=== PATIENT | male | born 1945 | race Caucasian/White ===

== ENCOUNTER 2016-05-25 22:39 | Inpatient (IN) ==
[2016-05-25] MEDS ORDERED: Pantoprazole 80 MG in 0.9 % Sodium Chloride 50 ML IVPB ONE (22:42)
--- NOTE | 2016-05-25 22:44 | Emergency Department Note ---
Disposition Clinical Impression: Hematochezia, Anemia, Hypokalemia Disposition: Admitted As Inpatient Condition: Fair General Adult HPI - General Chief complaint: ED GI Bleed Stated complaint: GI BLEED Time Seen by Provider: 05/25/16 22:41 - Related Data Home Medications Medication Instructions Recorded Confirmed Aspirin [Adult Low Dose Aspirin EC] 81 mg PO DAILY 04/18/15 04/18/15 Calcium Carbonate/Vitamin D3 2 tab PO BID 04/18/15 04/18/15 [Calcium 250+D Tablet] Carboxymethylcellulose Sodium 1 drop OP QID 04/18/15 04/18/15 [Refresh Liquigel] Donepezil [Aricept] 0.5 tab PO QAM 04/18/15 04/18/15 Furosemide [Lasix] 10 mg PO BID 04/18/15 04/18/15 GlipiZIDE [Glucotrol] 5 mg PO BIDWM 04/18/15 04/18/15 Lactulose 30 ml PO TID PRN 04/18/15 04/18/15 Lisinopril [Zestril] 0.5 tab PO DAILY 04/18/15 04/18/15 Melatonin [Melatin] 2 tab PO HS PRN 04/18/15 04/18/15 Omeprazole [PriLOSEC] 40 mg PO QAM 04/18/15 04/18/15 Simvastatin [Zocor] 0.5 tab PO HS 04/18/15 04/18/15 Allergies Allergy/AdvReac Type Severity Reaction Status Date / Time No Known Allergies Allergy Verified 04/18/15 15:20 Past Medical History - Past Medical History Medical history: Reports: cirrhosis, diabetes, hepatitis, hyperlipidemia, hypertension, other Psychiatric history: Reports: anxiety, PTSD - Social History Smoking Status: Never smoker Smokeless Tobacco Status: Yes Alcohol use: Reports: none Drug use: Reports: none Course Vital Signs Temperature 99.1 F 05/25/16 22:42 Pulse Rate 62 05/25/16 22:42 Respiratory Rate 18 05/25/16 22:42 Blood Pressure 136/62 05/25/16 22:42 O2 Sat by Pulse Oximetry 98 05/25/16 22:42 Temperature 98.9 F 05/26/16 01:21 Pulse Rate 63 05/26/16 01:21 Respiratory Rate 18 05/26/16 01:21 Blood Pressure 134/52 05/26/16 01:21 O2 Sat by Pulse Oximetry 98 05/26/16 01:21 Oxygen Delivery Oxygen Delivery Room Air Medical Decision Making - Lab Data Result diagrams: 05/26/16 00:06 05/25/16 23:21 Lab Results 05/25/16 05/25/16 05/26/16 Range/Units 23:21 23:21 00:06 Hgb 6.9 L (12.9-16.9) g/dL Hct 22.2 L (37.5-50.1) % Sodium 141 (136-145) mEq/L Potassium 2.8 L (3.5-4.5) mEq/L Chloride 105 (98-109) mEq/L Carbon Dioxide 26 (19-29) mEq/L BUN 17 (8-26) mg/dL Creatinine 1.73 H (0.72-1.25) mg/dL Est GFR ( Amer) 47 L (> 60) Est GFR (Non-Af Amer) 39 L (> 60) BUN/Creatinine Ratio 10 (6-26) Glucose 162 H (70-99) mg/dL Calculated Osmolality 297 (280-300) Calcium 9.0 (8.6-10.8) mg/dL Total Bilirubin 0.6 (0.2-1.2) mg/dL AST 27 (5-34) Units/L ALT 17 (0-55) Units/L Alkaline Phosphatase 97 (38-126) Units/L Troponin I (0-0.03) ng/mL Serum Total Protein 7.0 (6.0-8.3) g/dL Albumin 2.8 L (3.5-5.0) g/dL Globulin 4.2 H (2.4-3.5) g/dL Albumin/Globulin Ratio 0.7 L (1.1-2.2) Blood Type A NEGATIVE Antibody Screen NEGATIVE Crossmatch See Detail 05/26/16 Range/Units 00:06 Hgb (12.9-16.9) g/dL Hct (37.5-50.1) % Sodium (136-145) mEq/L Potassium (3.5-4.5) mEq/L Chloride (98-109) mEq/L Carbon Dioxide (19-29) mEq/L BUN (8-26) mg/dL Creatinine (0.72-1.25) mg/dL Est GFR ( Amer) (> 60) Est GFR (Non-Af Amer) (> 60) BUN/Creatinine Ratio (6-26) Glucose (70-99) mg/dL Calculated Osmolality (280-300) Calcium (8.6-10.8) mg/dL Total Bilirubin (0.2-1.2) mg/dL AST (5-34) Units/L ALT (0-55) Units/L Alkaline Phosphatase (38-126) Units/L Troponin I 0.03 (0-0.03) ng/mL Serum Total Protein (6.0-8.3) g/dL Albumin (3.5-5.0) g/dL Globulin (2.4-3.5) g/dL Albumin/Globulin Ratio (1.1-2.2) Blood Type Antibody Screen Crossmatch Attestation Statement - Attestation Attestation: I examined this patient and my medical decision-making was reviewed with the [employer]IC[employer] SOCIAL WORKER/PA/Advanced Practice Nurse/Resident Physician. I agree with the documented findings, disposition and treatment plan as described except to the extent set forth below. Face to face time provided in conjunction with Dr. Oseguera She presents as a transfer from the [facility] after being found Hemoccult positive with a hemoglobin of 7 down from a baseline of 9. He has a known history of esophageal varices. Ammonia level high. Patient oriented to person only and appears in no acute distress.
[2016-05-25] MEDS ORDERED: Pantoprazole 40 MG in 0.9 % Sodium Chloride Mini Bag 100 ML IVC SCH (22:45)
--- NOTE | 2016-05-25 22:51 | Emergency Department Note ---
Disposition Clinical Impression: Hematochezia, Hypokalemia Anemia Qualifiers: Anemia type: unspecified type Qualified Code(s): D64.9 - Anemia, unspecified Disposition: Admitted As Inpatient Condition: Fair [facility]Primary Care Provider[facility] - Forms: ED Satisfaction Letter Time of Disposition: 23:36 GI Bleed HPI - General Chief complaint: ED GI Bleed Stated complaint: GI BLEED Time Seen by Provider: 05/25/16 22:41 Source: patient, family, EMS Mode of arrival: EMS Limitations: age Nursing Notes Reviewed: Yes Vital Signs Reviewed: Yes - History of Present Illness HPI Narrative: Patient presents to the ED as a transfer from the [facility] with the chief complaint of confusion, Hemoccult positive stool, anemia. Patient has a history of cirrhosis and is supposed to be on lactulose. Patient states he has not been taking it recently. He is complaining and some mild crampy abdominal pain but denies nausea or vomiting. According to family, he is close to his baseline mental status. Was sent over for positive Hemoccult stools, anemia. - Related Data Home Medications Medication Instructions Recorded Confirmed Aspirin [Adult Low Dose Aspirin EC] 81 mg PO DAILY 04/18/15 04/18/15 Calcium Carbonate/Vitamin D3 2 tab PO BID 04/18/15 04/18/15 [Calcium 250+D Tablet] Carboxymethylcellulose Sodium 1 drop OP QID 04/18/15 04/18/15 [Refresh Liquigel] Donepezil [Aricept] 0.5 tab PO QAM 04/18/15 04/18/15 Furosemide [Lasix] 10 mg PO BID 04/18/15 04/18/15 GlipiZIDE [Glucotrol] 5 mg PO BIDWM 04/18/15 04/18/15 Lactulose 30 ml PO TID PRN 04/18/15 04/18/15 Lisinopril [Zestril] 0.5 tab PO DAILY 04/18/15 04/18/15 Melatonin [Melatin] 2 tab PO HS PRN 04/18/15 04/18/15 Omeprazole [PriLOSEC] 40 mg PO QAM 04/18/15 04/18/15 Simvastatin [Zocor] 0.5 tab PO HS 04/18/15 04/18/15 Allergies Allergy/AdvReac Type Severity Reaction Status Date / Time No Known Allergies Allergy Verified 04/18/15 15:20 Limitations: ROS unobtainable due to patients medical condition Constitutional: Denies: fever Gastrointestinal: Reports: abdominal pain, hematochezia Past Medical History - Past Medical History Attestation: Yes The following information was validated with the patient. Source: old records reviewed, obtained from family Medical history: Reports: cirrhosis, diabetes, hepatitis, hyperlipidemia, hypertension, other Psychiatric history: Reports: anxiety, PTSD - Social History Smoking Status: Never smoker Smokeless Tobacco Status: Yes Alcohol use: Reports: none Drug use: Reports: none Physical Exam - General Limitations: age General appearance: alert, in no apparent distress - Head Head exam: atraumatic, normocephalic, normal inspection - Eye Eye exam: Present: normal appearance, PERRL, EOMI - ENT ENT exam: mucous membranes dry - Neck Neck exam: Present: normal inspection, full ROM, trachea midline - Chest Chest inspection: Present: normal inspection, symmetric chest wall rise - Respiratory Respiratory exam: Present: normal lung sounds bilaterally - Cardiovascular Cardiovascular exam: Present: regular rate, normal rhythm, normal heart sounds - Abdominal Exam Abdominal exam: Present: soft, tenderness, distention (baseline). Absent: guarding, rebound Abdominal tenderness: Present: diffuse, mild - Rectal Exam Rectal exam: Present: heme (+) stool - Extremities Exam Extremities exam: Present: normal inspection, full ROM, pedal edema. Absent: tenderness - Neurological Exam Neurological exam: Present: alert. Absent: oriented X3 (Oriented to person, about baseline per family) - Skin Skin exam: Present: warm, dry, intact, normal color Course Course Narrative: 70 -year-old male [facility], abdominal pain and anemia. History of cirrhosis and possible esophageal varices. No blood thinners other than aspirin. Will get EKG, type and cross. Transfusion and blood and admit. Vital Signs Temperature 99.1 F 05/25/16 22:42 Pulse Rate 62 05/25/16 22:42 Respiratory Rate 18 05/25/16 22:42 Blood Pressure 136/62 05/25/16 22:42 O2 Sat by Pulse Oximetry 98 05/25/16 22:42 Temperature 99.1 F 05/25/16 22:42 Pulse Rate 62 05/25/16 22:42 Respiratory Rate 18 05/25/16 22:42 Blood Pressure 136/62 05/25/16 22:42 O2 Sat by Pulse Oximetry 98 05/25/16 22:42 Oxygen Delivery Oxygen Delivery Room Air GI Bleed - Medical Records Medical records reviewed: Yes I reviewed the patient's medical records. - Lab Data Lab results reviewed: Yes I reviewed the patient's lab results. Result diagrams: 05/25/16 23:21 Lab Results 05/25/16 Range/Units 23:21 Sodium 141 (136-145) mEq/L Potassium 2.8 L (3.5-4.5) mEq/L Chloride 105 (98-109) mEq/L Carbon Dioxide 26 (19-29) mEq/L BUN 17 (8-26) mg/dL Creatinine 1.73 H (0.72-1.25) mg/dL Est GFR ( Amer) 47 L (> 60) Est GFR (Non-Af Amer) 39 L (> 60) BUN/Creatinine Ratio 10 (6-26) Glucose 162 H (70-99) mg/dL Calculated Osmolality 297 (280-300) Calcium 9.0 (8.6-10.8) mg/dL Total Bilirubin 0.6 (0.2-1.2) mg/dL AST 27 (5-34) Units/L ALT 17 (0-55) Units/L Alkaline Phosphatase 97 (38-126) Units/L Serum Total Protein 7.0 (6.0-8.3) g/dL Albumin 2.8 L (3.5-5.0) g/dL Globulin 4.2 H (2.4-3.5) g/dL Albumin/Globulin Ratio 0.7 L (1.1-2.2) - EKG Data EKG attestation: Yes I reviewed and interpreted this EKG. EKG results narrative: Sinus rhythm, rate 64, NJ interval 131, QRS 96, QTC 503, normal axis, ST segment depression in V4 and V5, inverted T waves in V1, V2 and V3, no acute ischemic changes. S.B.A.R. - S.B.A.R. Situation: Demographics, MOA Background: Presenting Complaint, Relevant PMH, Meds, & Allergies Assessment: Vital Signs, Course and respsone to treatment, Exam Concerns, Patient/Family Expectation, Pertinant Lab Results, Outstanding Labs Recommendation: Recommendation based on pending studies, treatments, or consults Yeni Report Given to: Dr. Shyam Jaime Repor Time: 23:36
[2016-05-25] MEDS ORDERED: Acetaminophen 325 MG TABLET PO PRN (23:42)
[2016-05-25] MEDS ORDERED: Naloxone 0.4 MG/ML INJ IVP PRN (23:42)
[2016-05-25] MEDS ORDERED: *HR* Morphine 2 MG/ML SYRINGE IVP PRN (23:42)
[2016-05-25] MEDS ORDERED: *HR* OxyCODONE Immed Rel 5 MG TABLET PO PRN (23:42)
[2016-05-25] MEDS ORDERED: Ondansetron 4 MG/2 ML VIAL IVP PRN (23:42)
[2016-05-25] MEDS ORDERED: Metoclopramide 10 MG/2 ML VIAL IVP ONE (23:42)
[2016-05-25] MEDS ORDERED: Octreotide 50 MCG/ML SYRINGE IVP ONE (23:42)
[2016-05-25] MEDS ORDERED: 0.9 % Sodium Chloride 1,000 ML IVC SCH (23:45)
[2016-05-25 23:55] LABS: Albumin 2.8 g/dL (3.5-5.0); Albumin/Globulin Ratio 0.7 (1.1-2.2); Bilirubin,Total 0.6 mg/dL (0.2-1.2); Globulin 4.2 g/dL (2.4-3.5); Potassium 2.8 mEq/L (3.5-4.5)
[2016-05-26 00:15] LABS: Hematocrit 22.2 % (37.5-50.1); Hemoglobin 6.9 g/dL (12.9-16.9)
[2016-05-26] MEDS ORDERED: Potassium Chloride 40 MEQ, Lidocaine 1% 2 ML in D5% in Water 500 ML IVPB ONE (00:52)
--- NOTE | 2016-05-26 00:52 | Internal Med History&Physical ---
<Enoch Osborn - Last Filed: 05/26/16 04:08> Date of Encounter: 05/26/16 Time of Encounter: 00:05 Assessment and Plan (1) Hepatic encephalopathy Current visit: Yes Status: Acute -Has not been taking lactulose as prescribed. Patient seems to have improved after dose given today. -Been admitted previously for Hepatic encephalopathy -Doubt patient has SBP-no fever, nausea, vomitting. Patients confusion is improving. No emergent paracentesis needed at this time. -Denies alcohol use. -Ammonia lvl 116 Plan -Restart home med of lactulose -Consider paracentesis. -Get tox screen, ammonia lvls, lactate, CBC, CMP -CT of abd/pelvis (2) Anemia Current visit: Yes Status: Acute -hgb 6.9. Heme positive stool. -Previous EGD and Colonoscopy did not reveal source of bleeding. -[facility] 2014 for esophageal varicies with recommended repeat in 1 year. No colonoscopy record found. Plan -Transfuse -Consult GI for repeat EGD/[place] -Keep NPO -Consider checking iron studies for iron deficiency anemia. Qualifiers: Anemia type: unspecified type Qualified Code(s): D64.9 - Anemia, unspecified (3) Hypokalemia Current visit: Yes Status: Acute Potassium 2.9 Plan -Replaced in ED -Continue to monitor and replace as necessary. (4) DVT prophylaxis Current visit: Yes Status: Acute -Hold for now because of anemia. No previous history of DVT. Not on home anticoagulation. (5) Diabetes Current visit: Yes Status: Acute -Consider restarting home meds when patient able to eat -Saxagliptin 2.5 tab, one a day. -Glipizide 10mg BID Qualifiers: Diabetes mellitus type: type 2 Diabetes mellitus complication status: with unspecified complications Diabetes mellitus residential insulin use: with residential use Qualified Code(s): E11.8 - Type 2 diabetes mellitus with unspecified complications; Z79.4 - [facility] (current) use of insulin Internal Medicine - H&P: HPI Chief complaint: Confusion, Heme positive stool, anemia Admitted From: Emergency Dept Plans for Post Hospital Care: Home History of present illness: Mr. Barnes is a 70 year old male, PMH Cirrhosis, Hep C, DM, Hyperlipidemia, HTN, venous insufficiency, admitted for anemia and hepatic encephalopathy. Yesterday noticed patient becoming more confused (urinating in the bathtub , [place] on the [place] He is prescribed lactulose and has not taken his medication properly. Admits to mild, diffused abdominal pain. Denies N/V/F/D/C/brown tarry stools/urinary problems. He is alert and oriented x3, but daughter states he is not at baseline, but is progressing towards after given dose of lactulose at [place] today. He did have a BM in the ED that was noted to be of normal color and consistency. Denies any previous transfusions or paracentesis. No IV drug use and doesn't drink alcohol. He was admitted at another location in February 2016 for hepatic encephalopathy and anemia, daughter feels like current presentation is similar. Lives at home with his and is independent. States EGD and colonoscopy done 6m ago was normal and there has been no explanation of patients anemia. Aspirin is only "blood thinner" Past Med Surg Social Fam HX - Past Medical History Medical history: cirrhosis, diabetes, hepatitis, hyperlipidemia, hypertension, other Psychiatric history: anxiety, PTSD - Past Surgical History Surgical History: vascular surgery (for venous insufficiency ) - Social History Smoking Status: Never smoker Smokeless Tobacco Status: Yes Alcohol use: none Drug use: none - Family History Mother Hx Family Cardiac Disorders: Yes ([place]) Father Hx Family Genitourinary Disorders: Yes (prostate cancer) Internal Medicine - H&P: Meds Aspirin [Adult Low Dose Aspirin EC] 81 mg PO DAILY 04/18/15 [History] Calcium Carbonate/Vitamin D3 [Calcium 250+D Tablet] 2 tab PO BID 04/18/15 [ History] Carboxymethylcellulose Sodium [Refresh Liquigel] 1 drop OP QID 04/18/15 [History ] Donepezil [Aricept] 0.5 tab PO QAM 04/18/15 [History] Furosemide [Lasix] 10 mg PO BID 04/18/15 [History] GlipiZIDE [Glucotrol] 5 mg PO BIDWM 04/18/15 [History] Lactulose 30 ml PO TID PRN 04/18/15 [History] Lisinopril [Zestril] 0.5 tab PO DAILY 04/18/15 [History] Melatonin [Melatin] 2 tab PO HS PRN 04/18/15 [History] Omeprazole [PriLOSEC] 40 mg PO QAM 04/18/15 [History] Simvastatin [Zocor] 0.5 tab PO HS 04/18/15 [History] Allergies No Known Allergies Allergy (Verified 04/18/15 15:20) All Systems PM: A 10-system review of systems was performed and is negative for pertinent findings except as documented above in the HPI. - Constitutional Constitutional: no chills, no fever(s), no night sweats - Cardiovascular Cardiovascular ROS IM: no chest pain, no diaphoresis, no dyspnea, no lightheadedness, no palpitations, no syncope - Gastrointestinal Gastrointestinal: abdominal pain, bloating, no change in bowel habits, no change in stool character, no coffee ground emesis, no constipation, no diarrhea , no hematochezia, no nausea, no vomiting - Genitourinary Genitourinary ROS male: as per HPI - Neurological Neurological ROS: as per HPI - Constitutional Vitals: Temp Pulse Resp BP Pulse Ox 99.1 F 62 18 136/62 98 05/25/16 22:42 05/25/16 22:42 05/25/16 22:42 05/25/16 22:42 05/25/16 22:42 General appearance: Present: A&O X 2 (states its June, not May. ) - Head Head exam: Present: atraumatic, normocephalic - Eye Eye exam: Present: PERRL, conjuntiva pink, sclera anicteric Pupils: Present: PERRL - Respiratory Respiratory exam: Present: CTAB. Absent: accessory muscle use, rales, rhonchi, wheezes - Cardiovascular Cardiovascular exam: Present: RRR, +S1, +S2. Absent: diastolic murmur, gallop, rubs, systolic murmur - GI/Abdominal GI/Abdominal exam: Present: distended, firm, normal bowel sounds, tenderness, no peritoneal signs. Absent: guarding, mass, pulsatile mass Additional comments: hard to appreciate hepatomegaly due to abdominal distention - Psychiatric Psychiatric exam: Absent: agitated, anxious, flat affect - Other Additional findings: Bilateral peripheral edema. No signs of DVT Internal Med - H&P Results - Labs CBC & Chem 7: 05/26/16 00:06 05/25/16 23:21 <Giorgio Maojr - Last Filed: 05/26/16 07:43> Date of Encounter: 05/26/16 Internal Medicine - H&P: HPI Admitted From: Emergency Dept Plans for Post Hospital Care: Home History of present illness: Mr. Barnes is a 70 year old male [facility] patient with histopry significant for type II DM/peripheral neuropathy/nephropathy, HTN, HLD, asym cholelithiasis, GERD//DU/Hpylori+, cirrhotic liver dis/steatohepatitis/coagulopathy/ thrombocytopenia, portosystemic HTN/esoph varices/hepatospenomegaly/ascites, PTSD/MIGEL, CKD III, iron def/anemia chr dis, CAD, PAD/kevin carotid stenosis, chr encephalopathy(hepatic)/hyperammonemia, former smoker, etc.. Patient was admitted to [facility] via the emergency department when he presented as a hospital transfer from [facility] being found Hemoccult-positive with a hemoglobin decline from a baseline of 9-7. The patient has a known history of cirrhotic liver disease portosystemic hypertension with esophageal varices. He has a history as well as a recurrent significant hepatic encephalopathy with high ammonia is. Presentation the patient was only oriented to self and in no acute distress. Presentation was consistent with exacerbation of his toxic metabolic encephalopathy with delirium experience with hyperammonemia. We had noted progressive increase in confusion and agitation had been less than consistent with his prescribed lactulose therapy. 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 At presentation the patient did not complain of some abdominal discomfort. There is no report of any evidence of nausea vomiting hematemesis melena bright red blood per rectum epistaxis hemoptysis or cutaneous bleeding or trauma. Fecal Hemoccult stool test in the ED was positive for blood. Initial screening studies found the patient stable. Vital signs with pulse 62 respirations 18 and BP 136/62, saturation 89% on room air. He is febrile at 99.1. Telemetry and EKG demonstrated sinus rhythm. Rate 64. No acute ischemic changes. Ammonia level as recorded [facility] was greater than 100. Preliminary impression suggest again exacerbation of toxic metabolic encephalopathy-delirium secondary to hyperammonemia in a patient with known cirrhotic liver disease. History is noteworthy for portosystemic hypertension with known esophageal varices and prior episodes of GI bleed. The patient is suggestive of a acute on chronic blood loss anemia. Patient is not acutely toxic. SIRS/sepsis criteria not present at admission. The patient presents risk for further acute clinical decline/ morbidity given his presenting complaints, clinical findings and comorbidities. Workup and treatments will proceed comprehensively. Patient was visited, interviewed and examined. He was found to be acutely encephalopathic consistent with presentation surgeries. Delirium was noted. Details of patient's admission history of present illness, clinical circumstances and events was validated by family members at the bedside. I examined this patient and my medical decision-making was reviewed with the Resident Physician, Dr. Enoch Osborn. For this encounter, I have reviewed the documentation, treatment plan, and medical decision making. Cumulative laboratory and radiographic data base was reviewed and considered and discussed. I agree with the documented findings, disposition and treatment plan as described except to the extent set forth below. Consultative opinions will be sought as clinical circumstances justify. Initial consultative opinion has been requested of gastroenterology. Care has been reviewed and discussed in detail with family at the bedside. Questions addressed. Hospital course will be dependent upon clinical findings, treatment response and /or potential consultative interventions. Given the patient's presenting concerns, past medical history, clinical findings and symptoms, he is admitted at this time to undergo further evaluation and disposition. Orders were written as per the computerized physician orderly system. Condition is serious. Prognosis is guarded. CODE STATUS is reported as full. Past Med Surg Social Fam HX - Past Medical History Source: old records reviewed Medical history: arthritis (Gout/hyperuricemia.), cirrhosis (Secondary biliary cirrhosis.), COPD (CARLOS.), dementia, diabetes (Diabetic peripheral neuropathy.), GERD, GI bleed (Total hypertension with esophageal varices. Colonic polyps, adenomatous. Gastric ulcer. Duodenitis. H. pylori positive.), hepatitis ( Steatohepatitis with cirrhosis.), hyperlipidemia, hypertension, liver disease ( Hepatic encephalopathy secondary to hyperammonemia.), osteoporosis (vit D def.) , peripheral artery disease (Bilateral carotid artery stenosis (60-79%)), renal disease (BPH. Urinary retention/obstruction.CKD III. ), other ( Thrombocytopenia secondary to massive splenomegaly. Cholelithiasis. Anemia of chronic disease. Iron deficiency.) Psychiatric history: anxiety, PTSD, other - Past Surgical History Surgical History: vascular surgery, other - Social History Smoking Status: Never smoker Alcohol use: none, unknown Drug use: none, unknown Occupational status: retired Current living situation: Home, With Family Activity Level: Independent ambulation, Mostly sedentary Recent Out of Country Travel Within the Last 8 Weeks: No Exposure or Possible Exposure to Illness During Travel: No ROS unobtainable: due to mental status All Systems PM: A 10-system review of systems was performed and is negative for pertinent findings except as documented above in the HPI. Patient is encephalopathic consistent with exacerbation of hyperammonemia and hepatic encephalopathy with delirium. He is a non-historian of his current circumstances and events. Details are collected from family members of the bedside as well as review of collective records and triage performed by ED and EMS staff. - Constitutional Constitutional: as per HPI - EENT Eyes: as per HPI Ears: as per HPI Nose, mouth and throat: as per HPI - Cardiovascular Cardiovascular ROS IM: as per HPI - Respiratory Respiratory: as per HPI - Gastrointestinal Gastrointestinal: as per HPI - Genitourinary Genitourinary ROS male: as per HPI - Musculoskeletal Musculoskeletal ROS IM: as per HPI - Integumentary Integumentary IM: as per HPI - Neurological Neurological ROS: as per HPI - Psychiatric Psychiatric: as per HPI - Endocrine Endocrine IM: as per HPI - Hematologic/Lymphatic Hematologic/Lymphatic: as per HPI - Allergic/Immunologic Allergic/Immunologic: as per HPI - Constitutional Vitals: Temp Pulse Resp BP Pulse Ox 98.7 F 64 16 112/57 99 05/26/16 04:10 05/26/16 04:10 05/26/16 04:10 05/26/16 04:10 05/26/16 04:10 Vital Signs Temp Pulse Resp BP Pulse Ox 05/26/16 04:10 98.7 F 64 16 112/57 99 05/26/16 01:21 98.9 F 63 18 134/52 98 05/26/16 00:47 18 130/48 05/25/16 22:42 99.1 F 62 18 136/62 98 Intake and Output 05/25/16 05/25/16 05/26/16 15:59 23:59 07:59 Intake Total 300 / 300 Output Total 0 / 0 Balance 300 / 300 Intake: Blood Product 300 / 300 Rbcs Leuko Poor As-1 300 / 300 Unit [id number] Output: Urine 0 / 0 Other: # Voids 1 Weight 85.729 kg 86.5 kg Patient Weight 05/26/16 23:59 Weight 86.5 kg General appearance: Present: A&O X 1, mild distress, obese. Absent: cooperative , answers questions appropriately - Neurological Exam Neurological exam: Present: alert, altered, CN II-XII intact, no focal deficits. Absent: oriented X3, pronater drift, facial droop, speech deficit - Expanded Neurological Exam Neurological exam expanded: Present: ataxia, inattentive, protecting the airway , tremor. Absent: expressive aphasia, receptive aphasia Patient oriented to: Present: person. Absent: place, time Speech: Present: garbled Coma Scale Eye Opening: To Voice Coma Scale Motor Response: Localizes to Pain Coma Scale Verbal Response: Inappropriate Coma Scale Total: 11 Internal Med - H&P Results - Labs CBC & Chem 7: 05/26/16 00:06 05/26/16 06:26 Labs: Abnormal lab results Hgb 6.9 g/dL (12.9-16.9) L 05/26/16 00:06 Hct 22.2 % (37.5-50.1) L 05/26/16 00:06 Potassium 2.8 mEq/L (3.5-4.5) L 05/25/16 23:21 Creatinine 1.73 mg/dL (0.72-1.25) H 05/25/16 23:21 Est GFR ( Amer) 47 (> 60) L 05/25/16 23:21 Est GFR (Non-Af Amer) 39 (> 60) L 05/25/16 23:21 Glucose 162 mg/dL (70-99) H 05/25/16 23:21 Albumin 2.8 g/dL (3.5-5.0) L 05/25/16 23:21 Globulin 4.2 g/dL (2.4-3.5) H 05/25/16 23:21 Albumin/Globulin Ratio 0.7 (1.1-2.2) L 05/25/16 23:21 Laboratory Results Hgb 6.9 g/dL (12.9-16.9) L 05/26/16 00:06 Hct 22.2 % (37.5-50.1) L 05/26/16 00:06 Sodium 141 mEq/L (136-145) 05/25/16 23:21 Potassium 2.8 mEq/L (3.5-4.5) L 05/25/16 23:21 Chloride 105 mEq/L (98-109) 05/25/16 23:21 Carbon Dioxide 26 mEq/L (19-29) 05/25/16 23:21 BUN 17 mg/dL (8-26) 05/25/16 23:21 Creatinine 1.73 mg/dL (0.72-1.25) H 05/25/16 23:21 Est GFR ( Amer) 47 (> 60) L 05/25/16 23:21 Est GFR (Non-Af Amer) 39 (> 60) L 05/25/16 23:21 BUN/Creatinine Ratio 10 (6-26) 05/25/16 23:21 Glucose 162 mg/dL (70-99) H 05/25/16 23:21 Calculated Osmolality 297 (280-300) 05/25/16 23:21 Calcium 9.0 mg/dL (8.6-10.8) 05/25/16 23:21 Total Bilirubin 0.6 mg/dL (0.2-1.2) 05/25/16 23:21 AST 27 Units/L (5-34) 05/25/16 23:21 ALT 17 Units/L (0-55) 05/25/16 23:21 Alkaline Phosphatase 97 Units/L (38-126) 05/25/16 23:21 Troponin I 0.03 ng/mL (0-0.03) 05/26/16 00:06 Serum Total Protein 7.0 g/dL (6.0-8.3) 05/25/16 23:21 Albumin 2.8 g/dL (3.5-5.0) L 05/25/16 23:21 Globulin 4.2 g/dL (2.4-3.5) H 05/25/16 23:21 Albumin/Globulin Ratio 0.7 (1.1-2.2) L 05/25/16 23:21 Blood Type A NEGATIVE 05/25/16 23:21 Antibody Screen NEGATIVE 05/25/16 23:21 Crossmatch See Detail 05/25/16 23:[address] 05/26/16 01:29 IMPRESSION: 1. Limited evaluation of intra-abdominal visceral organs without IV contrast. 2. Cirrhosis with sequela of portal hypertension including marked splenomegaly and moderate volume simple appearing ascites. 3. Prominent para-aortic lymph nodes measuring up to 2.5 cm, nonspecific. 4. Chololithiasis. 5. Partial visualization of bilateral calcified pleural plaques, likely represent sequela of prior asbestos exposure. 6. Lumbar spine spondylosis. Bilateral L5 pars defects with grade 1 anterolisthesis of L5 on S1. D/ / Isael Michaels MD / Isael Michaels MD Interpreting Provider: Isael Michaels MD - Impressions ITS Impressions Abdomen CT 05/26/16 01:29 IMPRESSION: 1. Limited evaluation of intra-abdominal visceral organs without IV contrast. 2. Cirrhosis with sequela of portal hypertension including marked splenomegaly and moderate volume simple appearing ascites. 3. Prominent para-aortic lymph nodes measuring up to 2.5 cm, nonspecific. 4. Chololithiasis. 5. Partial visualization of bilateral calcified pleural plaques, likely represent sequela of prior asbestos exposure. 6. Lumbar spine spondylosis. Bilateral L5 pars defects with grade 1 anterolisthesis of L5 on S1. D/ / Isael Michaels MD / Isael Michaels MD Interpreting Provider: Isael Michaels MD - Attending Attestation My signature below is to certify that this patient is under my care and that I, or the Resident Physician working with me, has had a [id number] encounter with this patient.
[2016-05-26] MEDS: Octreotide 400 MCG in 0.9 % Sodium Chloride 100 ML IVC SCH ×2 (01:35→18:52)
[2016-05-26] MEDS ORDERED: 0.9 % Sodium Chloride 250 ML ONE (03:58)
[2016-05-26] MEDS ORDERED: Lactulose 200 GM, Sodium Chloride IRRigation 700 ML RC ONE (04:18)
[2016-05-26] MEDS ORDERED: *HR* LORazepam 2 MG/ML VIAL IVP PRN (04:22)
[2016-05-26] MEDS ORDERED: Haloperidol Lactate 5 MG/ML VIAL IVP PRN (04:22)
[2016-05-26 06:41] LABS: INR 1.4; Prothrombin Time 15.7 Seconds (9.4-12.1)
[2016-05-26 06:44] LABS: Activated Partial Thrombo Time 31.2 Seconds (26.0-36.0)
[2016-05-26 06:50] LABS: Calcium 8.8 mg/dL (8.6-10.8); Chol/HDL Ratio 4.3 (0-4.9); Magnesium 1.9 mg/dL (1.6-2.6); Phosphorous 3.1 mg/dL (2.3-4.7); Potassium 3.5 mEq/L (3.5-4.5)
[2016-05-26 08:21] LABS: Bilirubin,Urine Negative (Negative); Blood,Urine Negative (Negative); Clarity,Urine Clear (Clear); Color,Urine Yellow (Yellow); Glucose,Urine (UA) Normal (Normal); Ketones,Urine Negative (Negative); Leukocyte Esterase,Urine Small (Negative); Nitrite,Urine Negative (Negative); PH,Urine 6.5 pH Units (5.0-8.0); Protein,Urine Negative (Neg-Trace); RBC,Urine 0-3 per hpf (0-3); Urobilinogen,Urine Normal (Normal)
[2016-05-26 08:22] LABS: Bacteria,Urine Few per hpf (None-Few); Squamous Epithelial Cell,Urine Few per lpf (None-Few)
--- NOTE | 2016-05-26 08:33 | Internal Med Progress Note ---
<Colin Murcia - Last Filed: 05/26/16 09:37> Date of Encounter: 05/26/16 Time of Encounter: 08:28 - Assessment and plan (1) Hepatic encephalopathy Current Visit: Yes Status: Acute Assessment and plan: Patient presented with altered mental status and elevated ammonia level at 116, patient does have ascites and SBP needs to be ruled out, he has no fever, leukocytosis but does present with chills and had tachycardia. Continues to have altered mental status this morning. Plan: - Patient undergo paracentesis this afternoon for pleural fluid evaluation - Lactulose increased to 20 g by mouth every 3 hours, will titrate to 4 bowel movements per day - Started on rifaximin 400 mg by mouth 3 times a day - Urinalysis pending to rule out other sources of infection. - Goal is to treat underlying medical condition. (2) Ascites Current Visit: Yes Status: Acute Assessment and plan: Patient presents with ascites in the setting of known hepatic cirrhosis and hepatitis C. Abdominal imaging demonstrates moderate ascites. - Cannot rule out SBP at this time. Plan: - Paracentesis this afternoon - Cefotaxime 1000 mg IV every 8 hours Qualifiers: Qualified Code(s): R18.8 - Other ascites (3) Anemia Current Visit: Yes Status: Acute Assessment and plan: Hgb 6.9 this morning. Patient has known liver cirrhosis with esophageal varacies. Occult blood was positive at the [place]. - Currently receiving 2 units PRBCs - Low suspicion for variceal bleed as the patient was not having any diarrhea, melena or hematochezia. Vitals stable. - Suspicion that positive Hemoccult may be secondary to touch gastropathy. - Endoscopy completed over a year ago demonstrated esophageal varices - No recent colonoscopy, [place] records demonstrate history of colon polyps. Plan: - Currently receiving 2 units PRBCs - Start Protonix 40 mg IV daily - Start octreotide drip - Gastroenterology consult. Qualifiers: Anemia type: unspecified type Qualified Code(s): D64.9 - Anemia, unspecified (4) Diabetes Current Visit: Yes Status: Acute Assessment and plan: Patient is a known type II diabetic [id number]. Glucose is stable this morning. Plan: - Inpatient sliding scale insulin Qualifiers: Diabetes mellitus type: type 2 Diabetes mellitus complication status: with unspecified complications Diabetes mellitus usp insulin use: with usp use Qualified Code(s): E11.8 - Type 2 diabetes mellitus with unspecified complications; Z79.4 - prison (current) use of insulin (5) Hepatitis C Current Visit: Yes Status: Acute Assessment and plan: Chronic history. Qualifiers: Qualified Code(s): B19.20 - Unspecified viral hepatitis C without hepatic coma (6) DVT prophylaxis Current Visit: Yes Status: Acute Assessment and plan: SCDs. - Subjective Interval history: Mr. Barnes 70-year-old male's been seen and evaluated patient bedside this morning. He is alert and AO 2. His daughters at bedside and said that this has happened several times as he misses oral doses of lactulose. He denies any discomforts or pains he denies any abdominal tenderness, nausea vomiting diarrhea constipation headaches or blurry vision. He denies any blood in his stool or sputum. His daughter denies any known history of melena or hematochezia. The patient is a poor historian given his altered mental status. Daughter will check with patient's regarding previous endoscopy and colonoscopy. - Constitutional Vitals: Temp Pulse Resp BP Pulse Ox 98.4 F 64 18 117/50 99 05/26/16 06:39 05/26/16 06:39 05/26/16 06:39 05/26/16 06:39 05/26/16 06:39 General appearance: Present: A&O X 1, mild distress, obese. Absent: cooperative , answers questions appropriately - Other Additional findings: 70-year-old male alert oriented to self and place but not time. No acute distress. HEENT: Normocephalic, atraumatic, pupils equal and reactive, face is symmetric, oral mucosa is moist, uvula midline, neck is supple trachea midline no palpable masses or lymphadenopathy. Chest is symmetric bilateral pleural effusion with respiratory effort, respirations are appropriate, clear to auscultation bilateral. Cardiac: Regular rate and rhythm positive S1-S2, radial pulses 2+ bilateral Abdomen distended, positive fluid wave, nontender to palpation positive bowel sounds. Extremities symmetric with trace pitting edema to mid witt, bilateral Internal Medicine: Result - Labs CBC & Chem 7: 05/26/16 00:06 05/26/16 06:26 Labs: BMP 05/26/16 06:26 Sodium 140 Potassium 3.5 Chloride 106 Carbon Dioxide 28 BUN 15 Creatinine 1.58 H Glucose 130 H Calcium 8.8 Cardiac Enzymes 05/26/16 Range/Units 06:26 Troponin I 0.03 (0-0.03) ng/mL Urine 05/26/16 Range/Units 07:45 Urine Color Yellow (Yellow) Urine Clarity Clear (Clear) Urine pH 6.5 (5.0-8.0) pH Units Ur Specific [place] 1.020 (1.010-1.025) Urine Protein Negative (Neg-Trace) mg/dL Urine Glucose (UA) Normal (Normal) mg/dL - ABG Interpretation ABG results: PT/INR, D-dimer PT 15.7 Seconds (9.4-12.1) H 05/26/16 06:26 - Impressions Impressions Abdomen CT 05/26/16 01:29 IMPRESSION: 1. Limited evaluation of intra-abdominal visceral organs without IV contrast. 2. Cirrhosis with sequela of portal hypertension including marked splenomegaly and moderate volume simple appearing ascites. 3. Prominent para-aortic lymph nodes measuring up to 2.5 cm, nonspecific. 4. Chololithiasis. 5. Partial visualization of bilateral calcified pleural plaques, likely represent sequela of prior asbestos exposure. 6. Lumbar spine spondylosis. Bilateral L5 pars defects with grade 1 anterolisthesis of L5 on S1. D/ / Isael Michaels MD / Isael Michaels MD Interpreting Provider: Isael Michaels MD Consult Discharge Plan - Plan [facility]errals: [facility]Primary Care Provider[facility] - <Hayley Zamarripa E - Last Filed: 05/26/16 18:26> Date of Encounter: 05/26/16 - Constitutional Vitals: Temp Pulse Resp BP Pulse Ox 99.0 F 55 16 136/63 96 05/26/16 15:18 05/26/16 15:18 05/26/16 15:18 05/26/16 15:18 05/26/16 15:18 Internal Medicine: Result - Labs CBC & Chem 7: 05/26/16 12:11 05/26/16 06:26 Labs: Short CBC 05/26/16 Range/Units 12:11 WBC 2.9 L (4.3-11.1) K/mcL Hgb 8.7 L D (12.9-16.9) g/dL Hct 28.2 L (37.5-50.1) % Plt Count 45 L (140-400) K/mcL Neutrophils # 1.8 (1.6-8.9) K/mcL BMP 05/26/16 06:26 Sodium 140 Potassium 3.5 Chloride 106 Carbon Dioxide 28 BUN 15 Creatinine 1.58 H Glucose 130 H Calcium 8.8 Cardiac Enzymes 05/26/16 05/26/16 Range/Units 06:26 12:11 Troponin I 0.03 0.02 (0-0.03) ng/mL Liver Function 05/26/16 Range/Units 12:11 Total Bilirubin 1.3 H D (0.2-1.2) mg/dL Direct Bilirubin 0.6 H (0.0-0.5) mg/dL AST 36 H (5-34) Units/L ALT 18 (0-55) Units/L Alkaline Phosphatase 88 (38-126) Units/L Albumin 2.7 L (3.5-5.0) g/dL Urine 05/26/16 Range/Units 07:45 Urine Color Yellow (Yellow) Urine Clarity Clear (Clear) Urine pH 6.5 (5.0-8.0) pH Units Ur Specific [place] 1.020 (1.010-1.025) Urine Protein Negative (Neg-Trace) mg/dL Urine Glucose (UA) Normal (Normal) mg/dL - ABG Interpretation ABG results: PT/INR, D-dimer PT 15.7 Seconds (9.4-12.1) H 05/26/16 06:26 - Impressions Impressions Abdomen CT 05/26/16 01:29 IMPRESSION: 1. Limited evaluation of intra-abdominal visceral organs without IV contrast. 2. Cirrhosis with sequela of portal hypertension including marked splenomegaly and moderate volume simple appearing ascites. 3. Prominent para-aortic lymph nodes measuring up to 2.5 cm, nonspecific. 4. Chololithiasis. 5. Partial visualization of bilateral calcified pleural plaques, likely represent sequela of prior asbestos exposure. 6. Lumbar spine spondylosis. Bilateral L5 pars defects with grade 1 anterolisthesis of L5 on S1. D/ / Isael Michaels MD / Isael Michaels MD Interpreting Provider: Isael Michaels MD - Attending Attestation I examined this patient and reviewed laboratory, imaging and all diagnostic data. My medical decision-making was reviewed with Dr Murcia - Resident Physician. I agree with the documented findings, disposition and treatment plan as described above
[2016-05-26] MEDS ORDERED: Lactulose Oral Soln 20 GM/30 ML UDC PO SCH (09:00)
[2016-05-26] MEDS ORDERED: Lactulose 200 GM/300 ML (for enema) RC SCH (09:00)
[2016-05-26] MEDS ORDERED: Gabapentin 300 MG CAPSULE PO SCH (09:00)
[2016-05-26] MEDS ORDERED: amLODIPine 5 MG TABLET PO SCH (09:00)
[2016-05-26] MEDS ORDERED: Cefotaxime 1,000 MG in D5% in Water (Mini-Bag+) 100 ML IVPB SCH ×2 (09:16→22:00)
[2016-05-26] MEDS: Folic Acid 1 MG TABLET PO SCH (09:47)
[2016-05-26] MEDS: Vitamin B Complex/Vit C/Vit E 1 EACH TABLET PO SCH (09:47)
[2016-05-26] MEDS: Thiamine (B-1) 100 MG TABLET PO SCH (09:56)
[2016-05-26] MEDS: Cefotaxime 1,000 MG in D5% in Water (Mini-Bag+) 100 ML IVPB SCH ×2 (09:59→21:28)
[2016-05-26] MEDS ORDERED: Dextrose Gel 15 GM PO PRN ×2 (10:17)
[2016-05-26] MEDS ORDERED: D5% in Water 1,000 ML IVC PRN (10:17)
[2016-05-26] MEDS ORDERED: *HR* Dextrose 50 % in Water (Syg) 50 ML SYRINGE IVP PRN (10:17)
--- NOTE | 2016-05-26 11:39 | Gastroenterology Consult Note ---
<Miguel Angel Caldera - Last Filed: 05/26/16 11:53> Date of Encounter: 05/26/16 Time of Encounter: 10:45 - Assessment and plan (1) Cirrhosis Current Visit: Yes Status: Acute Assessment and plan: MELD-Na 15, Child-Beyer class B, DF 24.5. Cirrhosis due to chemical exposure during [place], per family report. Qualifiers: Hepatic cirrhosis type: unspecified hepatic cirrhosis Ascites presence: with ascites Qualified Code(s): K74.60 - Unspecified cirrhosis of liver (2) Hepatic encephalopathy Current Visit: Yes Status: Acute Assessment and plan: Secondary to cirrhosis. Titrate lactulose to 2-4 BMs daily. Agree with Rifaximin 400 mg TID while inpatient, change to 550 mg BID while outpatient. (3) Ascites Current Visit: Yes Status: Acute Assessment and plan: Secondary to cirrhosis. Agree with paracentesis, send fluid studies to r/o SBP. Qualifiers: Ascites type: other type Qualified Code(s): R18.8 - Other ascites (4) Anemia Current Visit: Yes Status: Acute Assessment and plan: Hgb on admission was 6.9, and has received 2 units PRBC. Recheck CBC. Plan for EGD and colonoscopy tomorrow. Clear liquid diet today, no red or purple. NPO at midnight. If unable tolerate NuLytely please use MiraLAX prep. If not clear by 6 AM, give 2 tap water enemas. Qualifiers: Anemia type: unspecified type Qualified Code(s): D64.9 - Anemia, unspecified - Time Spent With Patient Total time spent is greater than 50% in coordination of care (as documented) at patient's floor/unit and/or counseling patient: GI History of Present Illness - Data of Consult Patient: new to practice Consult date: 05/26/16 Requesting Physician: Hayley Zamarripa - Consult Narrative Reason for consult: anemia, FOBT +, cirrhosis History of present illness: Mr. Barnes is a 70 year old male with PMHx of cirrhosis, DM, Hep C, HLD, HTN was admitted for anemia and hepatic encephalopathy. His noticed patient becoming more confused (urinating in the bathtub, [place] car on the [place] He is prescribed lactulose and has not taken his medication properly. He was seen at the [place] and given a dose of Lactulose, and his mental status was improving when he presented here. Admits to mild, diffuse abdominal pain. He denies fever, nausea, vomiting, diarrhea, constipation, melena, or hematochezia. He was admitted at another location in February 2016 for hepatic encephalopathy and anemia, daughter feels like current presentation is similar. Lives at home with his and is independent. States EGD and colonoscopy done 6 months ago were normal and there has been no explanation of patients anemia. Procedures: EGD and colonoscopy 6 months ago normal per patient report. NSAIDs: ASA Anticoagulation: None Past Med Surg Social Fam HX - Past Medical History Medical history: arthritis (Gout/hyperuricemia.), cirrhosis (Secondary biliary cirrhosis.), COPD (CARLOS.), dementia, diabetes (Diabetic peripheral neuropathy.), GERD, GI bleed (Total hypertension with esophageal varices. Colonic polyps, adenomatous. Gastric ulcer. Duodenitis. H. pylori positive.), hepatitis ( Steatohepatitis with cirrhosis.), hyperlipidemia, hypertension, liver disease ( Hepatic encephalopathy secondary to hyperammonemia.), osteoporosis (vit D def.) , peripheral artery disease (Bilateral carotid artery stenosis (60-79%)), renal disease (BPH. Urinary retention/obstruction.CKD III. ), other ( Thrombocytopenia secondary to massive splenomegaly. Cholelithiasis. Anemia of chronic disease. Iron deficiency.) Psychiatric history: anxiety, PTSD, other - Past Surgical History Surgical History: vascular surgery, other - Social History Smoking Status: Never smoker Smokeless Tobacco Status: Yes Alcohol use: none, unknown Drug use: none, unknown - Family History Mother Hx Family Cardiac Disorders: Yes ([place]) Father Hx Family Genitourinary Disorders: Yes (prostate cancer) - Gastrointestinal Gastrointestinal: Present: as per HPI - Constitutional Constitutional: as per HPI - EENT Eyes: as per HPI Ears: Present: as per HPI Nose, mouth and throat: Present: as per HPI - Cardiovascular Cardiovascular ROS: Present: as per HPI - Respiratory Respiratory IM: Present: as per HPI - Genitourinary Genitourinary: Absent: change in color, Urinary frequency - Neurological ROS Neurological GI: Present: as per HPI - Hematologic/Lymphatic Hematologic/Lymphatic pediatric: Present: as per HPI - Musculoskeletal Musculoskeletal ROS GI: Present: as per HPI - Integumentary Integumentary GI: Present: as per HPI - Psychiatric ROS Psychiatric GI: Present: as per HPI - Endocrine Endocrine IM: Present: as per HPI - Constitutional Vitals: Temp Pulse Resp BP Pulse Ox 97.6 F 57 18 130/62 97 05/26/16 10:33 05/26/16 10:33 05/26/16 10:33 05/26/16 10:33 05/26/16 10:00 General appearance: Present: cooperative, A&O X 2, no acute distress - Head Head exam: Present: atraumatic, normocephalic - Eye Eye exam: Present: normal appearance, sclera anicteric - Neck Neck exam general surgery: Present: normal inspection, trachea midline - Respiratory Respiratory exam: Present: CTAB. Absent: rales, rhonchi - Cardiovascular Cardiovascular exam: Present: RRR, +S1, +S2 - GI/Abdominal GI/Abdominal exam: Present: distended, soft, no peritoneal signs. Absent: firm , guarding, tenderness - Expanded GI/Abdominal Exam GI/Abdominal exam expanded: Present: ascites - Rectal Rectal exam: Present: deferred - Extremities Exam Extremities exam: Present: warm - Neurological Exam Neurological exam: Present: no focal deficits - Psychiatric Psychiatric exam: Present: normal affect, normal mood - Skin Skin exam: Present: dry, intact, normal color, warm Results - Labs CBC & Chem 7: 05/26/16 00:06 05/26/16 06:26 Labs: Last Result Calcium 8.8 mg/dL (8.6-10.8) 05/26/16 06:26 Troponin I 0.03 ng/mL (0-0.03) 05/26/16 06:26 Triglycerides 119 mg/dL (< 150) 05/26/16 06:26 Entire Visit Hgb 6.9 g/dL (12.9-16.9) L 05/26/16 00:06 Hct 22.2 % (37.5-50.1) L 05/26/16 00:06 PT 15.7 Seconds (9.4-12.1) H 05/26/16 06:26 Total Bilirubin 0.6 mg/dL (0.2-1.2) 05/25/16 23:21 AST 27 Units/L (5-34) 05/25/16 23:21 ALT 17 Units/L (0-55) 05/25/16 23:21 Amylase 79 Units/L (25-125) 05/26/16 06:26 Lipase 38 Units/L (8-78) 05/26/16 06:26 - ABG ABG results: PT/INR, D-dimer PT 15.7 Seconds (9.4-12.1) H 05/26/16 06:26 - Impressions Impressions Abdomen CT 05/26/16 01:29 IMPRESSION: 1. Limited evaluation of intra-abdominal visceral organs without IV contrast. 2. Cirrhosis with sequela of portal hypertension including marked splenomegaly and moderate volume simple appearing ascites. 3. Prominent para-aortic lymph nodes measuring up to 2.5 cm, nonspecific. 4. Chololithiasis. 5. Partial visualization of bilateral calcified pleural plaques, likely represent sequela of prior asbestos exposure. 6. Lumbar spine spondylosis. Bilateral L5 pars defects with grade 1 anterolisthesis of L5 on S1. D/ / Isael Michaels MD / Isael Michaels MD Interpreting Provider: Isael Michaels MD Consult Discharge Plan - Plan [facility]: [facility] [[facility] Care Provider[facility] - <Majo Pulido - Last Filed: 05/26/16 15:13> Date of Encounter: 05/26/16 Time of Encounter: 13:00 - Time Spent With Patient Total time spent is greater than 50% in coordination of care (as documented) at patient's floor/unit and/or counseling patient: GI History of Present Illness - Data of Consult Requesting Physician: Hayley Zamarripa - Consult Narrative History of present illness: Mr. Barnes is a 70 year old male - Constitutional Vitals: Temp Pulse Resp BP Pulse Ox 97.6 F 57 18 130/62 97 05/26/16 10:33 05/26/16 10:33 05/26/16 10:33 05/26/16 10:33 05/26/16 10:00 Results - Labs CBC & Chem 7: 05/26/16 12:11 05/26/16 06:26 Labs: Last Result Calcium 8.8 mg/dL (8.6-10.8) 05/26/16 06:26 Troponin I 0.02 ng/mL (0-0.03) 05/26/16 12:11 Triglycerides 119 mg/dL (< 150) 05/26/16 06:26 Entire Visit Hgb 8.7 g/dL (12.9-16.9) L D 05/26/16 12:11 Hct 28.2 % (37.5-50.1) L 05/26/16 12:11 PT 15.7 Seconds (9.4-12.1) H 05/26/16 06:26 Total Bilirubin 1.3 mg/dL (0.2-1.2) H D 05/26/16 12:11 AST 36 Units/L (5-34) H 05/26/16 12:11 ALT 18 Units/L (0-55) 05/26/16 12:11 Ammonia 64 mcmol/L (18-72) 05/26/16 12:11 Amylase 79 Units/L (25-125) 05/26/16 06:26 Lipase 38 Units/L (8-78) 05/26/16 06:26 - ABG ABG results: PT/INR, D-dimer PT 15.7 Seconds (9.4-12.1) H 05/26/16 06:26 - Impressions Impressions Abdomen CT 05/26/16 01:29 IMPRESSION: 1. Limited evaluation of intra-abdominal visceral organs without IV contrast. 2. Cirrhosis with sequela of portal hypertension including marked splenomegaly and moderate volume simple appearing ascites. 3. Prominent para-aortic lymph nodes measuring up to 2.5 cm, nonspecific. 4. Chololithiasis. 5. Partial visualization of bilateral calcified pleural plaques, likely represent sequela of prior asbestos exposure. 6. Lumbar spine spondylosis. Bilateral L5 pars defects with grade 1 anterolisthesis of L5 on S1. D/ / Isael Michaels MD / Isael Michaels MD Interpreting Provider: Isael Michaels MD - Attending Attestation I examined this patient and my medical decision-making was reviewed with the FORENSIC SERGEANT/PA/Advanced Practice Nurse/Resident Physician. I agree with the documented findings, disposition and treatment plan as described except to the extent set forth below.
[2016-05-26 12:24] LABS: Basophils % 0.3 %; Eosinophils # 0.1 K/mcL (0.0-0.6); Eosinophils % 4.5 %; Hematocrit 28.2 % (37.5-50.1); Hemoglobin 8.7 g/dL (12.9-16.9); Immature Granulocytes % 0.3 % (0-4); Lymphocytes # 0.7 K/mcL (0.6-4.6); Lymphocytes % 22.6 %; Mean Corpuscular HGB Conc 30.9 g/dL (31.6-35.5); Mean Corpuscular Hemoglobin 24.6 pg (28.0-33.3); Mean Corpuscular Volume 79.9 fL (83.0-100.0); Mean Platelet Volume 12.6 fL (9.4-12.4); Monocytes # 0.3 K/mcL (0.0-1.3); Monocytes % 11.1 %; Neutrophils # 1.8 K/mcL (1.6-8.9); Red Blood Count 3.53 M/mcL (4.19-5.50); Red Cell Distribution Width 15.9 % (11.5-14.5); Segmented Neutrophils % 61.2 %
[2016-05-26 12:25] LABS: Platelet Count 45 K/mcL (140-400)
[2016-05-26] MEDS: Lactulose Oral Soln 20 GM/30 ML UDC PO SCH ×5 (12:35→21:26)
[2016-05-26] MEDS: Insulin LISPRO 300 UNITS/3 ML VIAL SQ SCH ×2 (12:35→17:58)
[2016-05-26 12:43] LABS: Albumin 2.7 g/dL (3.5-5.0); Albumin/Globulin Ratio 0.7 (1.1-2.2); Bilirubin,Direct 0.6 mg/dL (0.0-0.5); Bilirubin,Indirect 0.7 mg/dL (0.0-1.2); Globulin 3.9 g/dL (2.4-3.5); Total Protein 6.6 g/dL (6.0-8.3)
[2016-05-26 12:44] LABS: Bilirubin,Total 1.3 mg/dL (0.2-1.2)
--- NOTE | 2016-05-26 14:59 | Event Note ---
Date of Encounter: 05/26/16 Time of Encounter: 14:41 Paracentesis Procedure Note INDICATION: Possible SBP PROCEDURE LETTERSET PRESS SET UP OPERATOR: Monica Murcia DO ATTENDING PHYSICIAN: Hayley Ceballos MD Ultrasound used to alon location: yes, right CONSENT: Consent was obtained from patient and his . Risks, benefits, indications of the procedure were discussed with the patient prior to obtaining consent. PROCEDURE SUMMARY: The right lateral side of the abdomen was prepped and draped in a sterile fashion. 1% lidocaine was used to numb the skin, soft tissue and peritoneum. The paracentesis catheter was inserted and advanced with negative pressure until Matilde colored fluid was aspirated. Approximately 60 mL of ascitic fluid was collected and sent for laboratory analysis. The catheter was then connected to the vaccutainer and 1.8 liters of additional ascitic fluid were drained. The catheter was removed and no leaking was noted. A bandaid was placed over the puncture wound. The patient tolerated the procedure well without any immediate complications. Estimated blood loss was 0.
[2016-05-26] MEDS ORDERED: Albumin 25% 25gram/100mL 25 GM/100 ML IV.SOLN IVPB ONE (15:00)
[2016-05-26 16:28] LABS: RBC,Peritoneal Fluid < 0.002 M/mcL
[2016-05-26 16:39] LABS: Appearance of Peritoneal Fl CLEAR (Clear)
--- NOTE | 2016-05-26 16:47 | Electrocardiograph Report ---
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
[2016-05-26 16:50] LABS: Amylase,Peritoneal Fluid 18 Units/L (No Ref Range); Glucose,Peritoneal Fluid 147 mg/dL (No Ref Range)
[2016-05-26 16:51] LABS: Total Protein,Peritoneal Fluid 1.4 g/dL (No Ref Range)
[2016-05-26] MEDS ORDERED: SODIUM CHLORIDE/NAHCO3/KCL/PEG 4,000 ML SOLN.RECON PO ONE (17:00)
[2016-05-26] MEDS ORDERED: Insulin LISPRO 300 UNITS/3 ML VIAL SQ SCH (21:00)
[2016-05-27] MEDS: Lactulose Oral Soln 20 GM/30 ML UDC PO SCH ×4 (05:57→08:16)
[2016-05-27 07:31] LABS: Alanine Aminotransferase 16 Units/L (0-55); Albumin 2.7 g/dL (3.5-5.0); Albumin/Globulin Ratio 0.8 (1.1-2.2); Alkaline Phosphatase 80 Units/L (38-126); Aspartate Amino Transferase 36 Units/L (5-34); BUN/Creatinine Ratio 10 (6-26); Bilirubin,Total 1.4 mg/dL (0.2-1.2); Blood Urea Nitrogen 14 mg/dL (8-26); Calcium 8.6 mg/dL (8.6-10.8); Carbon Dioxide 29 mEq/L (19-29); Chloride 108 mEq/L (98-109); Globulin 3.4 g/dL (2.4-3.5); Glucose 62 mg/dL (70-99); Osmolality,Calculated 290 (280-300); Potassium 3.1 mEq/L (3.5-4.5); Sodium 141 mEq/L (136-145); Total Protein 6.1 g/dL (6.0-8.3); eGFR For African Americans > 60 (> 60); eGFR For Non-African Americans 52 (> 60)
[2016-05-27 07:40] LABS: Basophils % 0.6 %; Immature Granulocytes % 0.3 % (0-4); Red Cell Distribution Width 15.9 % (11.5-14.5)
[2016-05-27 07:42] LABS: Eosinophils # 0.2 K/mcL (0.0-0.6); Eosinophils % 7.3 %; Hematocrit 26.4 % (37.5-50.1); Hemoglobin 8.1 g/dL (12.9-16.9); Immature Platelets 18.6 % (1.1-6.1); Lymphocytes # 0.9 K/mcL (0.6-4.6); Lymphocytes % 27.8 %; Mean Corpuscular HGB Conc 30.7 g/dL (31.6-35.5); Mean Corpuscular Hemoglobin 24.8 pg (28.0-33.3); Mean Corpuscular Volume 80.7 fL (83.0-100.0); Monocytes # 0.3 K/mcL (0.0-1.3); Monocytes % 10.4 %; Neutrophils # 1.7 K/mcL (1.6-8.9); Red Blood Count 3.27 M/mcL (4.19-5.50); Segmented Neutrophils % 53.6 %
[2016-05-27 08:07] LABS: Platelet Count 46 K/mcL (140-400)
[2016-05-27] MEDS: Thiamine (B-1) 100 MG TABLET PO SCH (08:15)
[2016-05-27] MEDS: Vitamin B Complex/Vit C/Vit E 1 EACH TABLET PO SCH (08:15)
[2016-05-27] MEDS: Folic Acid 1 MG TABLET PO SCH (08:15)
[2016-05-27] MEDS ORDERED: Pantoprazole 40 MG VIAL IVP SCH (09:00)
--- NOTE | 2016-05-27 09:27 | Internal Med Progress Note ---
<Colin Murcia - Last Filed: 05/27/16 16:54> Date of Encounter: 05/27/16 Time of Encounter: 09:25 - Assessment and plan (1) Hepatic encephalopathy Current Visit: Yes Status: Acute Assessment and plan: Patient presented with altered mental status and elevated ammonia level at 116, patient does have ascites and SBP needs to be ruled out, he has no fever, leukocytosis but does present with chills and had tachycardia. 05/27/2016: Patient is alert and oriented 3, hepatic encephalopathy has improved. Suspect secondary to elevated ammonia. Plan: - continued on lactulose 20 g by mouth every 3 hours, titrated to 4 bowel movements per day - Continue rifaximin 400 mg by mouth 3 times a day, plan to switch to 550 mg twice a day. - UA negative - Goal is to treat underlying medical condition. - Continue with thiamine, vitamin B complex, folic acid (2) Ascites Current Visit: Yes Status: Acute Assessment and plan: Patient presents with ascites in the setting of known hepatic cirrhosis and hepatitis C. Abdominal imaging demonstrates moderate ascites. - Underwent paracentesis on 05/26/2016 - Final results of body fluid pending. Plan: - Cefotaxime 1000 mg IV every 8 hours Qualifiers: Ascites type: other type Qualified Code(s): R18.8 - Other ascites (3) Anemia Current Visit: Yes Status: Acute Assessment and plan: Hgb improved 8.1 this morning after 2 units PRBC transfusion. Patient has known liver cirrhosis with esophageal varacies. Occult blood was positive at the [facility]. - Received 2 units PRBCs yesterday - Low suspicion for variceal bleed as the patient was not having any diarrhea, melena or hematochezia. Vitals stable. - Suspicion that positive Hemoccult may be secondary to touch gastropathy. - Endoscopy completed over a year ago demonstrated esophageal varices - No recent colonoscopy[facility]. Plan: - Continue Protonix 40 mg IV daily - Continue octreotide drip - Gastroenterology following plan for colonoscopy today Qualifiers: Anemia type: unspecified type Qualified Code(s): D64.9 - Anemia, unspecified (4) Diabetes Current Visit: Yes Status: Acute Assessment and plan: Patient is a known type II diabetic [id number]. Glucose is stable this morning. 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 Qualifiers: Qualified Code(s): B19.20 - Unspecified viral hepatitis C without hepatic coma (6) DVT prophylaxis Current Visit: Yes Status: Acute Assessment and plan: SCDs. - Subjective Interval history: Mr. Barnes 70-year-old male's been seen and evaluated patient bedside this morning. He is alert and AO 3 with his daughter at bedside. He denies any pain or discomfort he has been completing his bowel prep for his colonoscopy today. He says his bowel movements are now clear no signs of blood or black tarry stools. Denies any nausea vomiting abdominal pain, chest pain, palpitations. - Constitutional Vitals: Temp Pulse Resp BP Pulse Ox 98 F 47 14 136/67 96 05/27/16 07:33 05/27/16 07:33 05/27/16 07:33 05/27/16 07:33 05/27/16 07:33 General appearance: Present: A&O X 1, mild distress, obese. Absent: cooperative , answers questions appropriately - Other Additional findings: 70-year-old male alert oriented to person place and time No acute distress. HEENT: Normocephalic, atraumatic, pupils equal and reactive, face is symmetric, oral mucosa is moist, uvula midline, neck is supple trachea midline no palpable masses or lymphadenopathy. Chest is symmetric bilateral pleural effusion with respiratory effort, respirations are appropriate, clear to auscultation bilateral. Cardiac: Regular rate and rhythm positive S1-S2, radial pulses 2+ bilateral Abdomen distended, positive fluid wave, nontender to palpation positive bowel sounds. Extremities symmetric with trace pitting edema to mid witt, bilateral Internal Medicine: Result - Labs CBC & Chem 7: 05/27/16 05:51 05/27/16 05:51 Labs: Short CBC 05/26/16 05/27/16 Range/Units 12:11 05:51 WBC 2.9 L 3.2 L (4.3-11.1) K/mcL Hgb 8.7 L D 8.1 L (12.9-16.9) g/dL Hct 28.2 L 26.4 L (37.5-50.1) % Plt Count 45 L 46 L (140-400) K/mcL Neutrophils # 1.8 1.7 (1.6-8.9) K/mcL BMP 05/27/16 05:51 Sodium 141 Potassium 3.1 L Chloride 108 Carbon Dioxide 29 BUN 14 Creatinine 1.36 H Glucose 62 L Calcium 8.6 Cardiac Enzymes 05/26/16 Range/Units 12:11 Troponin I 0.02 (0-0.03) ng/mL Liver Function 05/26/16 05/27/16 Range/Units 12:11 05:51 Total Bilirubin 1.3 H D 1.4 H (0.2-1.2) mg/dL Direct Bilirubin 0.6 H (0.0-0.5) mg/dL AST 36 H 36 H (5-34) Units/L ALT 18 16 (0-55) Units/L Alkaline Phosphatase 88 80 (38-126) Units/L Albumin 2.7 L 2.7 L (3.5-5.0) g/dL - ABG Interpretation ABG results: PT/INR, D-dimer PT 15.7 Seconds (9.4-12.1) H 05/26/16 06:26 - VTE Documentation of Mechanical Device: Graduated compression elastic hosiery Consult Discharge Plan - Plan Additional Instructions: Follow-up with your primary care physician as recommended in the next 3-5 days. Take medications as prescribed Check your blood pressure 2 times daily - Hold off on by mouth anti-hyperglycemics. - Check your blood sugar twice a day - Discussed medication changes with her primary care provider - Follow up with gastroenterology and have your hemoglobin checked on Wednesday. May require camera pill endoscopy. Referrals: Majo Pulido MD [Partnered Physician] - Prescriptions: Furosemide [Lasix] 40 mg PO DAILY #30 tablet Rifaximin [Xifaxan] 550 mg PO BID #60 tablet Spironolactone [Aldactone] 100 mg PO DAILY #30 tablet <Tucker-Hayley Tierney E - Last Filed: 05/27/16 17:10> Date of Encounter: 05/27/16 - Constitutional Vitals: Temp Pulse Resp BP Pulse Ox 98.3 F 43 18 135/69 93 05/27/16 14:25 05/27/16 14:25 05/27/16 14:25 05/27/16 14:25 05/27/16 14:25 Internal Medicine: Result - Labs CBC & Chem 7: 05/27/16 05:51 05/27/16 05:51 Labs: Short CBC 05/27/16 Range/Units 05:51 WBC 3.2 L (4.3-11.1) K/mcL Hgb 8.1 L (12.9-16.9) g/dL Hct 26.4 L (37.5-50.1) % Plt Count 46 L (140-400) K/mcL Neutrophils # 1.7 (1.6-8.9) K/mcL BMP 05/27/16 05:51 Sodium 141 Potassium 3.1 L Chloride 108 Carbon Dioxide 29 BUN 14 Creatinine 1.36 H Glucose 62 L Calcium 8.6 Liver Function 05/27/16 Range/Units 05:51 Total Bilirubin 1.4 H (0.2-1.2) mg/dL AST 36 H (5-34) Units/L ALT 16 (0-55) Units/L Alkaline Phosphatase 80 (38-126) Units/L Albumin 2.7 L (3.5-5.0) g/dL - ABG Interpretation ABG results: PT/INR, D-dimer PT 15.7 Seconds (9.4-12.1) H 05/26/16 06:26 - Attending Attestation I examined this patient and reviewed laboratory, imaging and all diagnostic data. My medical decision-making was reviewed with Dr Murcia - Resident Physician. I agree with the documented findings, disposition and treatment plan as described above
[2016-05-27] MEDS: Insulin LISPRO 300 UNITS/3 ML VIAL SQ SCH ×2 (10:35→17:24)
[2016-05-27] MEDS: Octreotide 400 MCG in 0.9 % Sodium Chloride 100 ML IVC SCH (11:02)
[2016-05-27] MEDS ORDERED: Simethicone 40 MG/0.6 ML MLS IR ONE (13:02)
[2016-05-27] MEDS ORDERED: Tetracaine/Benzocaine/Butamben 200MG/SPRAY (100SPY/BOT) MM ONE (13:02)
--- NOTE | 2016-05-27 13:03 | Pre-Sedation Evaluation ---
Pre-sedation evaluation - Pre-sedation checklist Date of procedure: 05/27/16 Recent Vitals: Last Vital Signs Temp 98 F 05/27/16 07:33 Pulse 47 05/27/16 07:33 Resp 14 05/27/16 07:33 BP 136/67 05/27/16 07:33 Pulse Ox 96 05/27/16 07:33 ASA Classification *see protocol: CLASS III-Severe systemic disease Plan of Care: Pt appropriate candidate for procedure/moderate/conscious sedation , If not NPO; Risk of intake outweiged by necessity to perform procedure
[2016-05-27] MEDS ORDERED: *HR* FentaNYL (PF) 100 MCG/2 ML VIAL ONE (13:11)
[2016-05-27] MEDS ORDERED: *HR* Midazolam HCl 5 MG/5 ML VIAL IVP ONE (13:11)
[2016-05-27] MEDS: *HR* FentaNYL (PF) 100 MCG/2 ML VIAL IVP PRN ×4 (13:16→13:35)
[2016-05-27] MEDS: *HR* Midazolam HCl 5 MG/5 ML VIAL IVP PRN ×4 (13:17→13:35)
[2016-05-27] MEDS ORDERED: 0.9 % Sodium Chloride 1,000 ML IVC SCH (13:30)
--- NOTE | 2016-05-27 16:27 | Discharge Summary ---
<Colin Murcia Nathaniel - Last Filed: 05/27/16 16:41> Date of Encounter: 05/27/16 Time of Encounter: 16:11 - Discharge Diagnosis (1) Hepatic encephalopathy Priority: Primary Status: Acute (2) Ascites Priority: Primary Status: Acute Qualifiers: Ascites type: other type Qualified Code(s): R18.8 - Other ascites (3) Anemia Priority: Primary Status: Acute Qualifiers: Anemia type: unspecified type Qualified Code(s): D64.9 - Anemia, unspecified (4) Diabetes Priority: Secondary Status: Acute Qualifiers: Diabetes mellitus type: type 2 Diabetes mellitus complication status: with unspecified complications 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 use: with long-term use Qualified Code(s): E11.8 - Type 2 diabetes mellitus with unspecified complications; Z79.4 - care home (current) use of insulin (5) Hepatitis C Priority: Secondary Status: Acute Qualifiers: Qualified Code(s): B19.20 - Unspecified viral hepatitis C without hepatic coma - Discharge Medications Prescriptions: Furosemide [Lasix] 40 mg PO DAILY #30 tablet Rifaximin [Xifaxan] 550 mg PO BID #60 tablet Spironolactone [Aldactone] 100 mg PO DAILY #30 tablet Home Medications: Calcium Carbonate/Vitamin D3 [Calcium 250+D Tablet] 2 tab PO BID 04/18/15 [ History] Carboxymethylcellulose Sodium [Refresh Liquigel] 1 drop OP QID 04/18/15 [History ] Donepezil [Aricept] 5 mg PO QAM 04/18/15 [History] Lactulose 30 ml PO TID PRN 04/18/15 [History] Melatonin [Melatin] 6 mg PO HS PRN 04/18/15 [History] Omeprazole [PriLOSEC] 20 mg PO BID 04/18/15 [History] Allopurinol [Zyloprim 100 MG] 100 mg PO DAILY 05/26/16 [History] Atorvastatin [Lipitor] 20 mg PO HS 05/26/16 [History] Loratadine [Allergy Relief] 10 mg PO DAILY 05/26/16 [History] TraZODone 25 mg PO HS 05/26/16 [History] Furosemide [Lasix] 40 mg PO DAILY #30 tablet 05/27/16 [Rx] Rifaximin [Xifaxan] 550 mg PO BID #60 tablet 05/27/16 [Rx] Spironolactone [Aldactone] 100 mg PO DAILY #30 tablet 05/27/16 [Rx] Allergies/Adverse Reactions: Allergies No Known Allergies Allergy (Verified 04/18/15 15:20) Procedures/tests Complete & Pending: Procedures Performed prior 72 hours Category Date Time Status CT abdomen wo no iv no oral [CT] Stat Cat Scan 05/26/16 01:29 Completed Date of admission: 05/26/16 00:11 Primary care physician: PCP [facility] Consults: 05/26/16 00:29 Consult to Gastroenterology [CONS] Routine Consulting Provider: Gastroenterology [facility] [place] Reason for Consult: Anemia of unknown source. Positive occult blood. Call Completed: Yes 05/26/16 09:26 Consult to Risk Specialist [CONS] Routine Reason for SW Consult: POA information Discharging clinician: Colin Murcia Anticipated date of discharge: 05/27/16 - Patient Status Disposition: Home, Self-Care Condition: Fair Functional capacity at discharge: independent ambulation Overall status at discharge: patient is progressing back to baseline - Discharge Instructions Follow Up With: Majo Pulido MD [Partnered Physician] - Additional Instructions: Follow-up with your primary care physician as recommended in the next 3-5 days. Take medications as prescribed Check your blood pressure 2 times daily - Hold off on by mouth anti-hyperglycemics. - Check your blood sugar twice a day - Discussed medication changes with her primary care provider - Follow up with gastroenterology and have your hemoglobin checked on Wednesday. May require camera pill endoscopy. - Diet and Activity Activity: increase activity as tolerated Diet: diabetic diet, low salt diet Interval History: Mr. Barnes is a 70 year old male, PMH Cirrhosis, Hep C, DM, Hyperlipidemia, HTN, venous insufficiency, admitted for anemia and hepatic encephalopathy. Mr. Barnes admits doses of lactulose in the days leading up to admission. Upon admission his hemoglobin was 6.9 and he received 2 units PRBCs. He had a positive stool Hemoccult at the [facility] prior to transfer. Gastroenterology was consulted. He was started on lactulose and rifaximin scheduled with a goal rate of 4 bowel movements after improvement of encephalopathy. His metabolic encephalopathy continued to improve. He completed bowel prep overnight with planned endoscopy and colonoscopy. Abdominal CT demonstrated cirrhosis with sequelae of portal hypertension including marked spinal megaly and moderate volume simple appearing ascites. Prominent periaortic lymph node measuring up to 2.5 cm nonspecific. Cholelithiasis. He underwent paracentesis and evaluation of body fluid for potential SBP and started on metronidazole. On patient was alert and oriented 3 hemoglobin was stable at 8.1 he underwent endoscopy demonstrating grade 1 esophageal varices and gastropathy but no signs of bleeding, colonoscopy with 2 polyps removed and recommendation for repeat colonoscopy in 5 years path results pending. Patient tolerated by mouth intake without complication. No further bleeding per rectum. Patient is to follow-up with gastroenterology note patient's setting for possible pill endoscopy, repeat hemoglobin to be collected on Wednesday with follow-up with his primary care provider. There are changes to his home medications including outpatient rifaximin 500 mg twice a day, furosemide 40 mg by mouth daily, spironolactone 100 mg daily, lactulose. Discontinuation of chlorthalidone and amlodipine and by mouth anti-hyperglycemics. Patient was told to check his blood pressure 2 times daily, check his glucose 2 times daily and follow up with his primary care provider. Also recommended that if he has recurring bleeding, nausea vomiting or change in mental status or hypoglycemia or severe hypertension he should be seen and evaluated as soon as possible by his primary care provider or in the emergency department. Hospital course: Mr. Barnes is a 70 year old male - Time Spent with Patient Total time spent providing and/or coordinating discharge services: - Constitutional Vitals: Temp Pulse Resp BP Pulse Ox 98 F 47 16 101/71 98 05/27/16 13:13 05/27/16 13:46 05/27/16 13:46 05/27/16 13:46 05/27/16 13:46 General appearance: Present: A&O X 1, mild distress, obese. Absent: cooperative , answers questions appropriately - Other Additional findings: 70-year-old male alert oriented to person place and time No acute distress. HEENT: Normocephalic, atraumatic, pupils equal and reactive, face is symmetric, oral mucosa is moist, uvula midline, neck is supple trachea midline no palpable masses or lymphadenopathy. Chest is symmetric bilateral pleural effusion with respiratory effort, respirations are appropriate, clear to auscultation bilateral. Cardiac: Regular rate and rhythm positive S1-S2, radial pulses 2+ bilateral Abdomen distended, positive fluid wave, nontender to palpation positive bowel sounds. Extremities symmetric with trace pitting edema to mid witt, bilateral - VTE Documentation of Mechanical Device: Graduated compression elastic hosiery <DallinJohanHayley E - Last Filed: 05/27/16 17:11> Date of Encounter: 05/27/16 Procedures/tests Complete & Pending: Procedures Performed prior 72 hours Category Date Time Status CT abdomen wo no iv no oral [CT] Stat Cat Scan 05/26/16 01:29 Completed Date of admission: 05/26/16 00:11 [facility] care physician: [facility] Consults: 05/26/16 00:29 Consult to Gastroenterology [CONS] Routine Consulting Provider: [facility]astroenter[facility] [place] Reason for Consult: Anemia of unknown source. Positive occult blood. Call Completed: Yes 05/26/16 09:26 Consult to Risk Specialist [CONS] Routine Reason for SW Consult: POA information Hospital course: Mr. Barnes is a 70 year old male - Time Spent with Patient Total time spent providing and/or coordinating discharge services: - Constitutional Vitals: Temp Pulse Resp BP Pulse Ox 98.3 F 43 18 135/69 93 05/27/16 14:25 05/27/16 14:25 05/27/16 14:25 05/27/16 14:25 05/27/16 14:25 - Attending Attestation I examined this patient and reviewed laboratory, imaging and all diagnostic data. My medical decision-making was reviewed with Dr Murcia - Resident Physician. I agree with the documented findings, disposition and treatment plan as described above
[2016-05-27 16:29] VITALS: BP 135/69
== END 2016-05-27 18:15 | disposition home or self-care (01) | DRG 441 ==
LOC: EMEROO 22:39 → 3ANU 05-26 00:11
PROVIDERS: ADMIT Internal Medicine; ATTEND Internal Medicine
PROC: ENDOCCB (2016-05-27 13:00)
PROC: ENDOEBX (2016-05-27 13:00)

== ENCOUNTER 2016-07-31 15:47 | Inpatient (IN) ==
[2016-07-31 17:42] LABS: Basophils % 0.3 %; Eosinophils # 0.1 K/mcL (0.0-0.6); Eosinophils % 3.6 %; Hematocrit 23.6 % (37.5-50.1); Immature Granulocytes % 0.3 % (0-4); Immature Platelets 16.6 % (1.1-6.1); Lymphocytes # 0.7 K/mcL (0.6-4.6); Lymphocytes % 21.5 %; Mean Corpuscular HGB Conc 30.5 g/dL (31.6-35.5); Mean Corpuscular Hemoglobin 25.4 pg (28.0-33.3); Mean Corpuscular Volume 83.1 fL (83.0-100.0); Mean Platelet Volume 11.7 fL (9.4-12.4); Monocytes # 0.3 K/mcL (0.0-1.3); Monocytes % 10.4 %; Red Blood Count 2.84 M/mcL (4.19-5.50); Red Cell Distribution Width 17.9 % (11.5-14.5); Segmented Neutrophils % 63.9 %
[2016-07-31 17:48] LABS: INR 1.3; Prothrombin Time 14.3 Seconds (9.4-12.1)
[2016-07-31 18:00] LABS: Alanine Aminotransferase 19 Units/L (0-55); Albumin 2.7 g/dL (3.5-5.0); Albumin/Globulin Ratio 0.7 (1.1-2.2); Alkaline Phosphatase 139 Units/L (38-126); Aspartate Amino Transferase 32 Units/L (5-34); BUN/Creatinine Ratio 13 (6-26); Bilirubin,Total 0.6 mg/dL (0.2-1.2); Blood Urea Nitrogen 18 mg/dL (8-26); Calcium 8.8 mg/dL (8.6-10.8); Carbon Dioxide 24 mEq/L (19-29); Chloride 109 mEq/L (98-109); Globulin 4.1 g/dL (2.4-3.5); Glucose 165 mg/dL (70-99); Osmolality,Calculated 292 (280-300); Potassium 4.8 mEq/L (3.5-4.5); Sodium 138 mEq/L (136-145); Total Protein 6.8 g/dL (6.0-8.3); eGFR For African Americans > 60 (> 60); eGFR For Non-African Americans 50 (> 60)
[2016-07-31 18:01] LABS: Hemoglobin 7.2 g/dL (12.9-16.9); Platelet Count 47 K/mcL (140-400)
--- NOTE | 2016-07-31 20:24 | Internal Med History&Physical ---
Date of Encounter: 07/31/16 Time of Encounter: 19:30 Assessment and Plan (1) Anemia Current visit: No Status: Acute Acute on chronic anemia, secondary to iron deficiency and also due to hepatic cirrhosis with esophageal varices Associated with chronic pancytopenia Fecal Hemoccult - pending Low suspicion for variceal bleed - no complaints of vomiting or hematemesis or diarrhea Type and screen and transfuse 1 units PRBC Monitor H&H IV famotidine Qualifiers: Anemia type: unspecified type Qualified Code(s): D64.9 - Anemia, unspecified (2) Ascites Current visit: No Status: Acute Acute on chronic ascites secondary to hepatic cirrhosis CT of the abdomen/pelvis reveals slight increase in ascites and cirrhotic morphology of liver Sent from the [facility] for paracentesis Consult IR for paracentesis Last paracentesis was on 05/26/2016 No signs of SBP at present, no signs of any infection Qualifiers: Ascites type: other type Qualified Code(s): R18.8 - Other ascites (3) Cirrhosis Current visit: No Status: Acute Chronic Hepatic cirrhosis - as per medical records, due to chemical exposure during the [place] war MELD-Na 15, Child-Beyer class B History of chronic Hepatic encephalopathy - Continue Rifaximin and Lactulose Currently awake and alert and oriented-at baseline Gastroenterology consult Qualifiers: Hepatic cirrhosis type: unspecified hepatic cirrhosis Ascites presence: with ascites Qualified Code(s): K74.60 - Unspecified cirrhosis of liver (4) Diabetes Current visit: No Status: Acute Known type 2 diabetes, otw-ykswzws-mpcrkpshy, hyperglycemia Insulin sliding scale and glucose checks Qualifiers: Diabetes mellitus type: type 2 Diabetes mellitus complication status: with unspecified complications Diabetes mellitus penitentiary insulin use: with penitentiary use Qualified Code(s): E11.8 - Type 2 diabetes mellitus with unspecified complications; Z79.4 - senior living (current) use of insulin (5) Hepatitis C Current visit: No Status: Acute Chronic history of hepatitis C Qualifiers: Qualified Code(s): B19.20 - Unspecified viral hepatitis C without hepatic coma (6) COPD (chronic obstructive pulmonary disease) Current visit: Yes Status: Chronic Stable, not in exacerbation, continue DuoNeb breathing Treatment Qualifiers: COPD type: unspecified COPD Qualified Code(s): J44.9 - Chronic obstructive pulmonary disease, unspecified (7) DVT prophylaxis Current visit: No Status: Acute Continue SCDs Internal Medicine - H&P: HPI Chief complaint: Abdominal distension Admitted From: Hospital to Hospital Transfer History of present illness: Mr. Barnes is a 70 year old male with past medical history of hepatic cirrhosis, hepatitis C, hypertension, hyperlipidemia, diabetes, arthritis, GERD and COPD. He was transferred to the ED from the [facility] for abdominal distention and anemia. Patient does have history of chronic hepatic encephalopathy and is on lactulose and rifaximin. Patient and his state that he has been taking his meds regularly. Patient went for a regular follow-up to his PCP at the [facility] today. He was advised to be evaluated for his ascites, and stated that he probably needed a paracentesis. CT scan of the abdomen and pelvis done in the ED revealed slight increase in ascites and cirrhotic morphology of the liver. Patient was also found to have H&H 7.2 and 23.6, which is slightly lower than his baseline. Patient is being admitted for anemia, probably needing transfusion and also for ascites, probably needing paracentesis. On examination patient is awake and alert, seems to be at baseline. Not in any distress. is at bedside. Patient's only complaint is abdominal distention , which is a chronic problem. It seems to have gotten slightly worse. He denies chest pain denies shortness of breath denies dizziness or lightheadedness. No diarrhea or vomiting. He has no other complaints, and no other associated symptoms. thinks that patient will do better if he gets the fluid taken out. 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 Patient and his have been explained about condition and plan of care. They understood and agreed. No unanswered questions. CODE STATUS full code. Past Med Surg Social Fam HX - Past Medical History Medical history: arthritis, cirrhosis, COPD, dementia, diabetes, GERD, GI bleed , hepatitis, hyperlipidemia, hypertension, liver disease, osteoporosis, peripheral artery disease, renal disease, other Psychiatric history: anxiety, PTSD, other - Past Surgical History Surgical History: vascular surgery, other - Social History Smoking Status: Never smoker Smokeless Tobacco Status: Yes Alcohol use: none, unknown Drug use: none, unknown - Family History Mother Hx Family Cardiac Disorders: Yes ([place]) Internal Medicine - H&P: Meds Calcium Carbonate/Vitamin D3 [Calcium 250+D Tablet] 2 tab PO BID 04/18/15 [ History] Carboxymethylcellulose Sodium [Refresh Liquigel] 1 drop OP QID 04/18/15 [History ] Donepezil [Aricept] 5 mg PO QAM 04/18/15 [History] Lactulose 30 ml PO QID 04/18/15 [History] Melatonin [Melatin] 6 mg PO HS PRN 04/18/15 [History] Omeprazole [PriLOSEC] 40 mg PO DAILY 04/18/15 [History] Allopurinol [Zyloprim 100 MG] 100 mg PO DAILY 05/26/16 [History] Atorvastatin [Lipitor] 20 mg PO HS 05/26/16 [History] Loratadine [Allergy Relief] 10 mg PO DAILY 05/26/16 [History] Rifaximin [Xifaxan] 550 mg PO BID #60 tablet 05/27/16 [Rx] Amlodipine Besylate 10 mg PO DAILY 07/31/16 [History] Ammonium Lactate [Karla-Hydrolac] 1 appl TP BID 07/31/16 [History] Aspirin Enteric Coated [Aspirin EC] 81 mg PO DAILY 07/31/16 [History] Furosemide [Lasix] 20 mg PO BID 07/31/16 [History] Gabapentin [Neurontin] 300 mg PO BID 07/31/16 [History] Potassium Chloride [K-Tab ER] 10 meq PO DAILY 07/31/16 [History] Saxagliptin HCl [Onglyza] 2.5 mg PO DAILY 07/31/16 [History] Spironolactone [Aldactone] 25 mg PO BID 07/31/16 [History] glipiZIDE [Glipizide] 10 mg PO BID 07/31/16 [History] Allergies No Known Allergies Allergy (Verified 04/18/15 15:20) All Systems PM: A 10-system review of systems was performed and is negative for pertinent findings except as documented above in the HPI. - Constitutional Constitutional: fatigue, weakness - EENT Eyes: no blurry vision, no loss of vision - Cardiovascular Cardiovascular ROS IM: no chest pain, no diaphoresis, no dyspnea, no dyspnea on exertion, no orthopnea - Respiratory Respiratory: wheezing, no cough, no dyspnea, no dyspnea on exertion, no chest congestion - Gastrointestinal Gastrointestinal: abdominal pain, bloating, nausea, no cramping, no diarrhea, no vomiting - Genitourinary Genitourinary ROS male: no dysuria - Neurological Neurological ROS: no abnormal gait, no abnormal speech, no dizziness, no focal weakness, no loss of vision - Constitutional Vitals: Temp Pulse Resp BP Pulse Ox 98.2 F 58 18 137/63 97 07/31/16 15:50 07/31/16 18:52 07/31/16 18:52 07/31/16 18:52 07/31/16 18:52 General appearance: Present: A&O X 3, no acute distress, obese, answers questions appropriately - Head Head exam: Present: atraumatic - Eye Eye exam: Present: EOMI - ENT ENT exam: Present: mucous membranes moist - Respiratory Respiratory exam: Present: wheezes (mild b/l, otherwise clear b/l). Absent: rales, rhonchi Internal Med - H&P Results - Labs CBC & Chem 7: 07/31/16 17:27 07/31/16 17:27
[2016-07-31] MEDS ORDERED: Naloxone 0.4 MG/ML INJ IVP PRN (21:05)
[2016-07-31] MEDS ORDERED: Ondansetron 4 MG/2 ML VIAL IVP PRN (21:05)
[2016-07-31] MEDS ORDERED: Melatonin 3 MG TABLET PO PRN (21:08)
[2016-07-31] MEDS ORDERED: D5% in Water 1,000 ML IVC PRN (21:17)
[2016-07-31] MEDS ORDERED: *HR* Dextrose 50 % in Water (Syg) 50 ML SYRINGE IVP PRN (21:17)
[2016-07-31] MEDS ORDERED: Dextrose Gel 15 GM PO PRN ×2 (21:17)
[2016-07-31] MEDS: Furosemide 20 MG TABLET PO SCH (22:33)
[2016-07-31] MEDS: Ipratropium/Albuterol Neb 3 ML IH SCH (22:45)
[2016-08-01] MEDS ORDERED: Insulin LISPRO 300 UNITS/3 ML VIAL SQ SCH
--- NOTE | 2016-08-01 01:18 | Emergency Department Note ---
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 He was sent from the [facility] with concern for worsening ascites. He reports that he has had worsening abdominal distention for 2-3 days. He has had ascites requiring paracentesis in the past. He has no fever, chills. He admits to known history of esophageal varices. He denies history of alcohol abuse. He has no chest pain, dyspnea. He is uncomfortable with abdominal distention but has no abdominal pain. . - Related Data Home Medications Medication Instructions Recorded Confirmed Calcium Carbonate/Vitamin D3 2 tab PO BID 04/18/15 07/31/16 [Calcium 250+D Tablet] Carboxymethylcellulose Sodium 1 drop OP QID 04/18/15 07/31/16 [Refresh Liquigel] Donepezil [Aricept] 5 mg PO QAM 04/18/15 07/31/16 Lactulose 30 ml PO QID 04/18/15 07/31/16 Melatonin [Melatin] 6 mg PO HS PRN 04/18/15 07/31/16 Omeprazole [PriLOSEC] 40 mg PO DAILY 04/18/15 07/31/16 Allopurinol [Zyloprim 100 MG] 100 mg PO DAILY 05/26/16 07/31/16 Atorvastatin [Lipitor] 20 mg PO HS 05/26/16 07/31/16 Loratadine [Allergy Relief] 10 mg PO DAILY 05/26/16 07/31/16 Amlodipine Besylate 10 mg PO DAILY 07/31/16 07/31/16 Ammonium Lactate [Karla-Hydrolac] 1 appl TP BID 07/31/16 07/31/16 Aspirin Enteric Coated [Aspirin EC] 81 mg PO DAILY 07/31/16 07/31/16 Furosemide [Lasix] 20 mg PO BID 07/31/16 07/31/16 Gabapentin [Neurontin] 300 mg PO BID 07/31/16 07/31/16 Potassium Chloride [K-Tab ER] 10 meq PO DAILY 07/31/16 07/31/16 Saxagliptin HCl [Onglyza] 2.5 mg PO DAILY 07/31/16 07/31/16 Spironolactone [Aldactone] 25 mg PO BID 07/31/16 07/31/16 glipiZIDE [Glipizide] 10 mg PO BID 07/31/16 07/31/16 Previous Rx's Medication Instructions Recorded Rifaximin [Xifaxan] 550 mg PO BID #60 tablet 05/27/16 Allergies Allergy/AdvReac Type Severity Reaction Status Date / Time No Known Allergies Allergy Verified 04/18/15 15:20 All systems ED: reviewed and negative except as stated. Past Medical History - Past Medical History Medical history: Reports: arthritis, cirrhosis, COPD, dementia, diabetes, GERD, GI bleed, hepatitis, hyperlipidemia, hypertension, liver disease, osteoporosis, peripheral artery disease, renal disease, other Surgical history: Reports: vascular surgery, other Psychiatric history: Reports: anxiety, PTSD, other - Social History Smoking Status: Never smoker Smokeless Tobacco Status: Yes Alcohol use: Reports: none, unknown Drug use: Reports: none, unknown Physical Exam - General Limitations: no limitations General appearance: alert - Head Head exam: atraumatic - Eye Eye exam: Present: normal appearance - ENT ENT exam: normal exam, normal oropharynx - Neck Neck exam: Present: normal inspection, full ROM - Chest Chest inspection: Present: normal inspection - Respiratory Respiratory exam: Present: normal lung sounds bilaterally - Cardiovascular Cardiovascular exam: Present: regular rate, normal rhythm - Abdominal Exam Abdominal exam: Present: distention - Male exam: Present: normal inspection - Expanded Lower Extremity Exam Hip/Pelvis exam: Present: normal inspection, full ROM Gait: observed and normal - Back Exam Back exam: Present: normal inspection, full ROM - Neurological Exam Neurological exam: Present: alert, oriented X3, CN II-XII intact - Psychiatric Psychiatric exam: Present: normal affect, normal mood - Skin Skin exam: Present: warm, dry Course Vital Signs Temperature 98.2 F 07/31/16 15:50 Pulse Rate 65 07/31/16 15:50 Respiratory Rate 18 07/31/16 15:50 Blood Pressure 143/73 07/31/16 15:50 O2 Sat by Pulse Oximetry 100 07/31/16 15:50 Temperature 98.5 F 08/01/16 00:22 Pulse Rate 55 08/01/16 00:22 Respiratory Rate 16 08/01/16 00:22 Blood Pressure 127/64 08/01/16 00:22 O2 Sat by Pulse Oximetry 98 08/01/16 00:22 Oxygen Delivery Oxygen Delivery Room Air GI Bleed - MDM Narrative Medical decision making narrative: Suspected ascites, no fever. He was sent for therapeutic paracentesis. I did obtain basic labs to evaluate his INR as well as his platelet count. There is no evidence of worsening thrombocytopenia however he does have worsening anemia. His baseline hemoglobin is 10. His hemoglobin today is 7.2. His family reports that he has had some hemoptysis however not in the past week. I am concerned given the significant drop in his hemoglobin level. I would proceed with admission for trending of hemoglobin level. Obtain type and screen. I did obtain a bedside ultrasound which does not show significant ascites which would be amenable to bedside drainage. As such I would recommend admission to the hospital for further evaluation and management - Medical Records Medical records reviewed: Yes I reviewed the patient's medical records. - Lab Data Lab results reviewed: Yes I reviewed the patient's lab results. Result diagrams: 07/31/16 17:27 07/31/16 17:27 Lab Results 07/31/16 07/31/16 07/31/16 Range/Units 17:27 17:27 17:27 WBC 3.1 L (4.3-11.1) K/mcL RBC 2.84 L (4.19-5.50) M/mcL Hgb 7.2 L (12.9-16.9) g/dL Hct 23.6 L (37.5-50.1) % MCV 83.1 (83.0-100.0) fL MCH 25.4 L (28.0-33.3) pg MCHC 30.5 L (31.6-35.5) g/dL RDW 17.9 H (11.5-14.5) % Plt Count 47 L (140-400) K/mcL MPV 11.7 (9.4-12.4) fL Immature Gran % 0.3 (0-4) % Seg Neutrophils % 63.9 % Lymphocytes % 21.5 % Monocytes % 10.4 % Eosinophils % 3.6 % Basophils % 0.3 % Neutrophils # 2.0 (1.6-8.9) K/mcL Lymphocytes # 0.7 (0.6-4.6) K/mcL Monocytes # 0.3 (0.0-1.3) K/mcL Eosinophils # 0.1 (0.0-0.6) K/mcL Basophils # 0.0 (0.0-0.2) K/mcL Immature Plt Fraction 16.6 H (1.1-6.1) % PT 14.3 H (9.4-12.1) Seconds INR 1.3 Sodium 138 (136-145) mEq/L Potassium 4.8 H (3.5-4.5) mEq/L Chloride 109 (98-109) mEq/L Carbon Dioxide 24 (19-29) mEq/L BUN 18 (8-26) mg/dL Creatinine 1.41 H (0.72-1.25) mg/dL Est GFR ( Amer) > 60 (> 60) Est GFR (Non-Af Amer) 50 L (> 60) BUN/Creatinine Ratio 13 (6-26) Glucose 165 H (70-99) mg/dL Calculated Osmolality 292 (280-300) Calcium 8.8 (8.6-10.8) mg/dL Total Bilirubin 0.6 (0.2-1.2) mg/dL AST 32 (5-34) Units/L ALT 19 (0-55) Units/L Alkaline Phosphatase 139 H (38-126) Units/L Ammonia (18-72) mcmol/L Serum Total Protein 6.8 (6.0-8.3) g/dL Albumin 2.7 L (3.5-5.0) g/dL Globulin 4.1 H (2.4-3.5) g/dL Albumin/Globulin Ratio 0.7 L (1.1-2.2) Blood Type Antibody Screen 07/31/16 07/31/16 Range/Units 17:27 18:54 WBC (4.3-11.1) K/mcL RBC (4.19-5.50) M/mcL Hgb (12.9-16.9) g/dL Hct (37.5-50.1) % MCV (83.0-100.0) fL MCH (28.0-33.3) pg MCHC (31.6-35.5) g/dL RDW (11.5-14.5) % Plt Count (140-400) K/mcL MPV (9.4-12.4) fL Immature Gran % (0-4) % Seg Neutrophils % % Lymphocytes % % Monocytes % % Eosinophils % % Basophils % % Neutrophils # (1.6-8.9) K/mcL Lymphocytes # (0.6-4.6) K/mcL Monocytes # (0.0-1.3) K/mcL Eosinophils # (0.0-0.6) K/mcL Basophils # (0.0-0.2) K/mcL Immature Plt Fraction (1.1-6.1) % PT (9.4-12.1) Seconds INR Sodium (136-145) mEq/L Potassium (3.5-4.5) mEq/L Chloride (98-109) mEq/L Carbon Dioxide (19-29) mEq/L BUN (8-26) mg/dL Creatinine (0.72-1.25) mg/dL Est GFR ( Amer) (> 60) Est GFR (Non-Af Amer) (> 60) BUN/Creatinine Ratio (6-26) Glucose (70-99) mg/dL Calculated Osmolality (280-300) Calcium (8.6-10.8) mg/dL Total Bilirubin (0.2-1.2) mg/dL AST (5-34) Units/L ALT (0-55) Units/L Alkaline Phosphatase (38-126) Units/L Ammonia 58 (18-72) mcmol/L Serum Total Protein (6.0-8.3) g/dL Albumin (3.5-5.0) g/dL Globulin (2.4-3.5) g/dL Albumin/Globulin Ratio (1.1-2.2) Blood Type A NEGATIVE Antibody Screen NEGATIVE
[2016-08-01] MEDS: Ipratropium/Albuterol Neb 3 ML IH SCH ×4 (04:24→21:59)
[2016-08-01] MEDS: Famotidine 20 MG/2 ML VIAL IVP SCH ×2 (05:31→18:23)
[2016-08-01 06:37] LABS: Immature Granulocytes % 0.3 % (0-4); Mean Corpuscular HGB Conc 30.1 g/dL (31.6-35.5)
[2016-08-01 06:39] LABS: Eosinophils # 0.1 K/mcL (0.0-0.6); Eosinophils % 4.2 %; Hematocrit 20.6 % (37.5-50.1); Hemoglobin 6.2 g/dL (12.9-16.9); Immature Platelets 15.9 % (1.1-6.1); Lymphocytes # 0.8 K/mcL (0.6-4.6); Lymphocytes % 24.6 %; Mean Corpuscular Hemoglobin 25.2 pg (28.0-33.3); Mean Corpuscular Volume 83.7 fL (83.0-100.0); Mean Platelet Volume 12.7 fL (9.4-12.4); Monocytes # 0.4 K/mcL (0.0-1.3); Monocytes % 11.2 %; Neutrophils # 1.9 K/mcL (1.6-8.9); Red Blood Count 2.46 M/mcL (4.19-5.50); Red Cell Distribution Width 17.7 % (11.5-14.5); Segmented Neutrophils % 59.7 %
[2016-08-01 06:41] LABS: INR 1.5; Prothrombin Time 16.5 Seconds (9.4-12.1)
[2016-08-01 06:42] LABS: Platelet Count 42 K/mcL (140-400)
[2016-08-01 06:53] LABS: Alanine Aminotransferase 16 Units/L (0-55); Albumin 2.4 g/dL (3.5-5.0); Albumin/Globulin Ratio 0.7 (1.1-2.2); Alkaline Phosphatase 116 Units/L (38-126); Aspartate Amino Transferase 26 Units/L (5-34); BUN/Creatinine Ratio 14 (6-26); Bilirubin,Total 0.8 mg/dL (0.2-1.2); Blood Urea Nitrogen 18 mg/dL (8-26); Calcium 8.6 mg/dL (8.6-10.8); Carbon Dioxide 24 mEq/L (19-29); Chloride 108 mEq/L (98-109); Globulin 3.4 g/dL (2.4-3.5); Glucose 81 mg/dL (70-99); Magnesium 1.6 mg/dL (1.6-2.6); Osmolality,Calculated 287 (280-300); Potassium 4.2 mEq/L (3.5-4.5); Sodium 138 mEq/L (136-145); Total Protein 5.8 g/dL (6.0-8.3); eGFR For African Americans > 60 (> 60); eGFR For Non-African Americans 54 (> 60)
[2016-08-01] MEDS: Insulin LISPRO 300 UNITS/3 ML VIAL SQ SCH ×4 (07:37→22:17)
[2016-08-01] MEDS: Spironolactone 25 MG TABLET PO SCH ×2 (07:45→22:16)
[2016-08-01] MEDS: (Rifaximin [Xifaxan] 550 MG) PO SCH ×2 (07:45→22:18)
[2016-08-01] MEDS: Saliva Stimulant 100ml BOTTLE PO SCH ×4 (07:46→22:17)
[2016-08-01] MEDS: Furosemide 20 MG TABLET PO SCH ×2 (07:46→22:16)
[2016-08-01] MEDS: Aspirin Enteric Coated 81 MG Tablet PO SCH (07:46)
[2016-08-01] MEDS: amLODIPine 5 MG TABLET PO SCH (07:46)
[2016-08-01 09:33] LABS: Hematocrit 21.6 % (37.5-50.1); Hemoglobin 6.6 g/dL (12.9-16.9)
[2016-08-01] MEDS: Lactulose 200 GM/300 ML (for enema) RC SCH ×4 (11:23→22:18)
[2016-08-01 15:08] LABS: Hematocrit 21.2 % (37.5-50.1); Hemoglobin 6.6 g/dL (12.9-16.9)
--- NOTE | 2016-08-01 17:54 | Internal Med Progress Note ---
Date of Encounter: 08/01/16 Time of Encounter: 17:52 - Assessment and plan (1) GI bleed due to NSAIDs Current Visit: Yes Status: Acute (2) Diabetes Current Visit: No Status: Acute Qualifiers: Diabetes mellitus type: type 2 Diabetes mellitus complication status: with unspecified complications Diabetes mellitus dedicated intermodal truck driver insulin use: with dedicated intermodal truck driver use Qualified Code(s): E11.8 - Type 2 diabetes mellitus with unspecified complications; Z79.4 - technician terminal and repeater (current) use of insulin (3) Cirrhosis Current Visit: No Status: Acute Qualifiers: Hepatic cirrhosis type: unspecified hepatic cirrhosis Ascites presence: with ascites Qualified Code(s): K74.60 - Unspecified cirrhosis of liver - Subjective Interval history: Oz Barnes is a 70-year-old male with 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 Hemoccult is positive. He essentially has some pancytopenia. GI is consulted. We will transfuse him 2 units. He denies any melena or hematochezia and hematemesis as noted Hemoccult is positive. I will order iron profile. - Constitutional Vitals: Temp Pulse Resp BP Pulse Ox 98.5 F 51 16 110/59 96 08/01/16 14:50 08/01/16 14:50 08/01/16 14:50 08/01/16 14:50 08/01/16 14:50 General appearance: Present: A&O X 3, no acute distress, obese, answers questions appropriately - Head Head exam: Present: atraumatic, normocephalic - Eye Eye exam: Present: PERRL, conjuntiva pink, sclera anicteric Pupils: Present: PERRL - Neck Neck exam general surgery: Present: supple, trachea midline. Absent: lymphadenopathy - Respiratory Respiratory exam: Present: CTAB. Absent: accessory muscle use, rales, rhonchi, wheezes - Cardiovascular Cardiovascular exam: Present: RRR, +S1, +S2. Absent: diastolic murmur, gallop, rubs, systolic murmur - GI/Abdominal GI/Abdominal exam: Present: normal bowel sounds, soft, no peritoneal signs. Absent: distended, tenderness - Extremities Exam Extremities exam: Present: warm, radial pulses palpable and symetrical. Absent : calf tenderness, cyanotic, pedal edema - Neurological Exam Neurological exam: Present: CN II-XII intact, oriented X3, no focal deficits. Absent: pronater drift, facial droop, speech deficit - Skin Skin exam: Present: dry, intact Internal Medicine: Result - Labs CBC & Chem 7: 08/01/16 14:48 08/01/16 05:58 Labs: Short CBC 08/01/16 08/01/16 08/01/16 Range/Units 05:58 09:17 14:48 WBC 3.1 L (4.3-11.1) K/mcL Hgb 6.2 L 6.6 L 6.6 L (12.9-16.9) g/dL Hct 20.6 L 21.6 L 21.2 L (37.5-50.1) % Plt Count 42 L (140-400) K/mcL Neutrophils # 1.9 (1.6-8.9) K/mcL BMP 08/01/16 05:58 Sodium 138 Potassium 4.2 Chloride 108 Carbon Dioxide 24 BUN 18 Creatinine 1.30 H Glucose 81 Calcium 8.6 Liver Function 08/01/16 Range/Units 05:58 Total Bilirubin 0.8 (0.2-1.2) mg/dL AST 26 (5-34) Units/L ALT 16 (0-55) Units/L Alkaline Phosphatase 116 (38-126) Units/L Albumin 2.4 L (3.5-5.0) g/dL - ABG Interpretation ABG results: PT/INR, D-dimer PT 16.5 Seconds (9.4-12.1) H 08/01/16 05:58 Consult Discharge Plan - Plan Instructions: Chronic Obstructive Pulmonary Disease (DC) Referrals: [facility] [Outside]
[2016-08-01] MEDS ORDERED: 0.9 % Sodium Chloride 250 ML ONE ×2 (20:07→23:26)
[2016-08-02] MEDS: Ipratropium/Albuterol Neb 3 ML IH SCH ×4 (04:38→23:10)
[2016-08-02 05:34] LABS: Basophils % 0.6 %
[2016-08-02 05:36] LABS: Eosinophils # 0.1 K/mcL (0.0-0.6); Hematocrit 25.9 % (37.5-50.1); Hemoglobin 8.3 g/dL (12.9-16.9); Immature Granulocytes % 0.3 % (0-4); Immature Platelets 16.1 % (1.1-6.1); Lymphocytes # 0.8 K/mcL (0.6-4.6); Lymphocytes % 25.3 %; Mean Corpuscular Hemoglobin 26.3 pg (28.0-33.3); Mean Corpuscular Volume 82.2 fL (83.0-100.0); Monocytes # 0.4 K/mcL (0.0-1.3); Neutrophils # 1.9 K/mcL (1.6-8.9); Red Blood Count 3.15 M/mcL (4.19-5.50); Red Cell Distribution Width 16.9 % (11.5-14.5); Segmented Neutrophils % 57.8 %
[2016-08-02 05:37] LABS: Albumin 2.5 g/dL (3.5-5.0); Albumin/Globulin Ratio 0.7 (1.1-2.2); Bilirubin,Total 1.1 mg/dL (0.2-1.2); Calcium 8.9 mg/dL (8.6-10.8); Globulin 3.7 g/dL (2.4-3.5); Potassium 4.3 mEq/L (3.5-4.5); Total Protein 6.2 g/dL (6.0-8.3)
[2016-08-02 05:39] LABS: % Iron Saturation 10 % (20-55); Iron 39 mcg/dL (65-175); Transferrin 276 mg/dL (174-364)
[2016-08-02 05:56] LABS: Platelet Count 42 K/mcL (140-400)
[2016-08-02] MEDS: Famotidine 20 MG/2 ML VIAL IVP SCH ×2 (06:01→18:11)
[2016-08-02] MEDS: (Rifaximin [Xifaxan] 550 MG) PO SCH ×2 (07:35→21:42)
[2016-08-02] MEDS: Aspirin Enteric Coated 81 MG Tablet PO SCH (07:35)
[2016-08-02] MEDS: Insulin LISPRO 300 UNITS/3 ML VIAL SQ SCH ×4 (07:36→21:41)
[2016-08-02] MEDS: Spironolactone 25 MG TABLET PO SCH ×2 (07:50→21:44)
[2016-08-02] MEDS: Furosemide 20 MG TABLET PO SCH ×2 (07:50→21:43)
[2016-08-02] MEDS: Saliva Stimulant 100ml BOTTLE PO SCH ×4 (07:52→21:44)
[2016-08-02 08:40] LABS: Hematocrit 27.5 % (37.5-50.1); Hemoglobin 8.7 g/dL (12.9-16.9)
[2016-08-02] MEDS: amLODIPine 5 MG TABLET PO SCH ×2 (09:00→18:07)
[2016-08-02] MEDS: Lactulose 200 GM/300 ML (for enema) RC SCH ×3 (09:00→17:19)
[2016-08-02] MEDS ORDERED: Iron Dextran Complex 200 MG in 0.9 % Sodium Chloride 500 ML IVPB ONE (09:32)
[2016-08-02] MEDS ORDERED: IRON DEXTRAN COMPLEX IVPB ONE (10:10)
[2016-08-02] MEDS ORDERED: SODIUM CHLORIDE 0.9% IVPB ONE (10:10)
[2016-08-02 15:02] LABS: Hematocrit 26.6 % (37.5-50.1); Hemoglobin 8.3 g/dL (12.9-16.9)
--- NOTE | 2016-08-02 18:44 | Internal Med Progress Note ---
Date of Encounter: 08/02/16 Time of Encounter: 18:42 - Assessment and plan (1) GI bleed due to NSAIDs Current Visit: Yes Status: Acute (2) Diabetes Current Visit: No Status: Acute Qualifiers: Diabetes mellitus type: type 2 Diabetes mellitus complication status: with unspecified complications Diabetes mellitus long term care phlebotomist insulin use: with long term care phlebotomist use Qualified Code(s): E11.8 - Type 2 diabetes mellitus with unspecified complications; Z79.4 - buttermaker continuous churn (current) use of insulin (3) Cirrhosis Current Visit: No Status: Acute Qualifiers: Hepatic cirrhosis type: unspecified hepatic cirrhosis Ascites presence: with ascites Qualified Code(s): K74.60 - Unspecified cirrhosis of liver (4) Ascites Current Visit: Yes Status: Acute Qualifiers: Ascites type: other type Qualified Code(s): R18.8 - Other ascites - Subjective Interval history: Oz Barnes is a 70-year-old male with 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 Hemoccult is positive. He essentially has some pancytopenia. GI is consulted. We will transfuse him 2 units. He denies any melena or hematochezia and hematemesis as noted Hemoccult is positive. I will order iron profile. 08/02 patient is asymptomatic and requesting food. He will be started on clear diet. GI is consulted. Essentially he was sent from [facility] for worsening ascites but he is quite asymptomatic. A drop in hemoglobin was noted therefore he was transfused 2 units. H&H this morning is 8.3. We will watch another H&H tomorrow and if it remains stable he can be discharged. - Constitutional Vitals: Temp Pulse Resp BP Pulse Ox 97.8 F 48 16 131/67 97 08/02/16 15:12 08/02/16 15:12 08/02/16 16:00 08/02/16 16:00 08/02/16 16:00 General appearance: Present: A&O X 3, no acute distress, obese, answers questions appropriately - Head Head exam: Present: atraumatic, normocephalic - Eye Eye exam: Present: PERRL, conjuntiva pink, sclera anicteric Pupils: Present: PERRL - Neck Neck exam general surgery: Present: supple, trachea midline. Absent: lymphadenopathy - Respiratory Respiratory exam: Present: CTAB. Absent: accessory muscle use, rales, rhonchi, wheezes - Cardiovascular Cardiovascular exam: Present: RRR, +S1, +S2. Absent: diastolic murmur, gallop, rubs, systolic murmur - GI/Abdominal GI/Abdominal exam: Present: distended, normal bowel sounds, soft, no peritoneal signs. Absent: tenderness - Extremities Exam Extremities exam: Present: warm, radial pulses palpable and symetrical. Absent : calf tenderness, cyanotic, pedal edema - Neurological Exam Neurological exam: Present: CN II-XII intact, oriented X3, no focal deficits. Absent: pronater drift, facial droop, speech deficit - Skin Skin exam: Present: dry, intact Internal Medicine: Result - Labs CBC & Chem 7: 08/02/16 14:48 08/02/16 05:06 Labs: Short CBC 08/02/16 08/02/16 08/02/16 Range/Units 05:06 08:34 14:48 WBC 3.3 L (4.3-11.1) K/mcL Hgb 8.3 L D 8.7 L 8.3 L (12.9-16.9) g/dL Hct 25.9 L 27.5 L 26.6 L (37.5-50.1) % Plt Count 42 L (140-400) K/mcL Neutrophils # 1.9 (1.6-8.9) K/mcL BMP 08/02/16 05:06 Sodium 138 Potassium 4.3 Chloride 106 Carbon Dioxide 24 BUN 23 Creatinine 1.53 H Glucose 110 H Calcium 8.9 Liver Function 08/02/16 Range/Units 05:06 Total Bilirubin 1.1 (0.2-1.2) mg/dL AST 25 (5-34) Units/L ALT 15 (0-55) Units/L Alkaline Phosphatase 116 (38-126) Units/L Albumin 2.5 L (3.5-5.0) g/dL - ABG Interpretation ABG results: PT/INR, D-dimer PT 16.5 Seconds (9.4-12.1) H 08/01/16 05:58 - VTE Documentation of Mechanical Device: Venous foot pump, device Consult Discharge Plan - Plan Instructions: Chronic Obstructive Pulmonary Disease (DC) Referrals: [facility] [Outside]
[2016-08-02 20:50] LABS: Hematocrit 26.9 % (37.5-50.1); Hemoglobin 8.6 g/dL (12.9-16.9)
[2016-08-02] MEDS: Lactulose Oral Soln 20 GM/30 ML UDC PO SCH (21:43)
[2016-08-03] MEDS: Ipratropium/Albuterol Neb 3 ML IH SCH ×2 (03:44→11:01)
[2016-08-03 04:25] LABS: Immature Granulocytes % 0.3 % (0-4); Segmented Neutrophils % 58.3 %
[2016-08-03 04:27] LABS: Basophils % 0.6 %; Eosinophils # 0.1 K/mcL (0.0-0.6); Eosinophils % 3.4 %; Hematocrit 26.4 % (37.5-50.1); Hemoglobin 8.3 g/dL (12.9-16.9); Lymphocytes # 0.9 K/mcL (0.6-4.6); Lymphocytes % 25.5 %; Mean Corpuscular HGB Conc 31.4 g/dL (31.6-35.5); Mean Corpuscular Hemoglobin 25.9 pg (28.0-33.3); Mean Corpuscular Volume 82.5 fL (83.0-100.0); Mean Platelet Volume 12.4 fL (9.4-12.4); Monocytes # 0.4 K/mcL (0.0-1.3); Monocytes % 11.9 %; Red Cell Distribution Width 16.7 % (11.5-14.5)
[2016-08-03 04:29] LABS: Platelet Count 45 K/mcL (140-400)
[2016-08-03 04:42] LABS: Albumin 2.5 g/dL (3.5-5.0); Albumin/Globulin Ratio 0.7 (1.1-2.2); Bilirubin,Total 1.1 mg/dL (0.2-1.2); Calcium 8.9 mg/dL (8.6-10.8); Globulin 3.7 g/dL (2.4-3.5); Total Protein 6.2 g/dL (6.0-8.3)
[2016-08-03] MEDS: Famotidine 20 MG/2 ML VIAL IVP SCH (05:54)
[2016-08-03] MEDS: Lactulose Oral Soln 20 GM/30 ML UDC PO SCH (08:50)
[2016-08-03] MEDS: Spironolactone 25 MG TABLET PO SCH (08:51)
--- NOTE | 2016-08-03 08:51 | Discharge Summary ---
Date of Encounter: 08/03/16 Time of Encounter: 08:48 - Discharge Diagnosis (1) GI bleed due to NSAIDs Priority: Primary Status: Acute (2) Diabetes Priority: Secondary Status: Acute Qualifiers: Diabetes mellitus type: type 2 Diabetes mellitus complication status: with unspecified complications Diabetes mellitus extermination supervisor insulin use: with correction use Qualified Code(s): E11.8 - Type 2 diabetes mellitus with unspecified complications; Z79.4 - intermodal truck driver (current) use of insulin (3) Cirrhosis Priority: Secondary Status: Acute Qualifiers: Hepatic cirrhosis type: unspecified hepatic cirrhosis Ascites presence: with ascites Qualified Code(s): K74.60 - Unspecified cirrhosis of liver (4) Ascites Priority: Primary Status: Acute Qualifiers: Ascites type: other type Qualified Code(s): R18.8 - Other ascites - Discharge Medications Prescriptions: Omeprazole [PriLOSEC] 40 mg PO DAILY #60 capsule.dr Isaac Medications: Calcium Carbonate/Vitamin D3 [Calcium 250+D Tablet] 2 tab PO BID 04/18/15 [ History] Carboxymethylcellulose Sodium [Refresh Liquigel] 1 drop OP QID 04/18/15 [History ] Donepezil [Aricept] 5 mg PO QAM 04/18/15 [History] Lactulose 30 ml PO QID 04/18/15 [History] Melatonin [Melatin] 6 mg PO HS PRN 04/18/15 [History] Allopurinol [Zyloprim 100 MG] 100 mg PO DAILY 05/26/16 [History] Atorvastatin [Lipitor] 20 mg PO HS 05/26/16 [History] Loratadine [Allergy Relief] 10 mg PO DAILY 05/26/16 [History] Rifaximin [Xifaxan] 550 mg PO BID #60 tablet 05/27/16 [Rx] Amlodipine Besylate 10 mg PO DAILY 07/31/16 [History] Ammonium Lactate [Karla-Hydrolac] 1 appl TP BID 07/31/16 [History] Furosemide [Lasix] 20 mg PO BID 07/31/16 [History] Gabapentin [Neurontin] 300 mg PO BID 07/31/16 [History] Potassium Chloride [K-Tab ER] 10 meq PO DAILY 07/31/16 [History] Saxagliptin HCl [Onglyza] 2.5 mg PO DAILY 07/31/16 [History] Spironolactone [Aldactone] 25 mg PO BID 07/31/16 [History] glipiZIDE [Glipizide] 10 mg PO BID 07/31/16 [History] Omeprazole [PriLOSEC] 40 mg PO DAILY #60 capsule. 08/03/16 [Rx] Allergies/Adverse Reactions: Allergies No Known Allergies Allergy (Verified 04/18/15 15:20) Procedures/tests Complete & Pending: Procedures Performed prior 72 hours Category Date Time Status IR paracentesis ultrasound [IR] Routine IR 08/03/16 Ordered ECG 12 lead ECG [ECG] AM 0600 Y 08/01/16 06:00 Ordered Date of admission: 07/31/16 20:07 [facility] Consults: 07/31/16 21:07 Consult to Physical Therapy [CONS] Routine Comment: Evaluate, develop and implement POC Reason for Consult: pt eval Consult to Meal Packer [CONS] Routine Reason for SW Consult: d/c planning 07/31/16 21:32 Consult to Gastroenterology [CONS] Routine Consulting Provider: Gastroenterology Luz Marina Reason for Consult: cirrhosis, anemia Call Completed: No Consult to Interventional Radiology [CONS] Routine Consulting Provider: Radiology Interventional Cols Reason for Consult: Paracentesis Call Completed: No Discharging clinician: Shawnee Bradford - Patient Status Disposition: Home Health Service Condition: Fair Overall status at discharge: patient is progressing back to baseline - Discharge Instructions Instructions: Chronic Obstructive Pulmonary Disease (DC) Follow Up With: [facility] [Outside] Forms: ED Satisfaction Letter, Work/School Release - Diet and Activity Activity: increase activity as tolerated Diet: advance to your usual diet Hospital course: Oz Barnes is a 70-year-old male with 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 Hemoccult is positive. He essentially has some pancytopenia. Dr. Angeles has seen him 2 months ago when he did EGD and colonoscopy. EGD showed grade 1 esophageal varices in the lower third as well as hypertensive gastropathy and a polyp. Colonoscopy showed polyps which were removed as well as serum Angio ectasia which was cauterized and internal hemorrhoids. I consulted him on form and he recommended that if hemoglobin is not rapidly falling and after transfusion he can be discharged and follow with his doctors in [place]. We transfused him 2 units and since then his hemoglobin stays in the range of 8 and does not seem like that he is actively bleeding. His Hemoccult test was positive on admission but he has internal hemorrhoid. I noted his iron was 39 and therefore I will give him iron and dextran 200 mg. We have recommended him not to use any NSAIDs aspirin antiplatelet agents. Due to liver cirrhosis his INR is around 1.5 . Patient denies any active bleeding including hematemesis melena hematochezia. Patient also has pancytopenia which we suspect due to liver cirrhosis but overall cell counts are stable including white cell counts and platelets. Patient has CKD stage III and his creatinine is a stable around 1.5. I have stopped his aspirin and increase his Prilosec to 40 mg twice a day. He should follow up with his doctors at [place] who had reasonable time can make further changes in his medication. Interventional radiology has done paracentesis today and we are going to remove as much fluid as we can. - Time Spent with Patient Total time spent providing and/or coordinating discharge services: Greater than 30 minutes - Constitutional Vitals: Temp Pulse Resp BP Pulse Ox 98.1 F 51 17 122/63 93 08/03/16 07:31 08/03/16 07:31 08/03/16 07:31 08/03/16 07:31 08/03/16 07:31 General appearance: Present: A&O X 3, no acute distress, obese, answers questions appropriately - Head Head exam: Present: atraumatic, normocephalic - Eye Eye exam: Present: PERRL, conjuntiva pink, sclera anicteric Pupils: Present: PERRL - Neck Neck exam general surgery: Present: supple, trachea midline. Absent: lymphadenopathy - Respiratory Respiratory exam: Present: CTAB. Absent: accessory muscle use, rales, rhonchi, wheezes - Cardiovascular Cardiovascular exam: Present: RRR, +S1, +S2. Absent: diastolic murmur, gallop, rubs, systolic murmur - GI/Abdominal GI/Abdominal exam: Present: normal bowel sounds, soft, no peritoneal signs. Absent: distended, tenderness - Extremities Exam Extremities exam: Present: warm, radial pulses palpable and symetrical. Absent : calf tenderness, cyanotic, pedal edema - Neurological Exam Neurological exam: Present: CN II-XII intact, oriented X3, no focal deficits. Absent: pronater drift, facial droop, speech deficit - Skin Skin exam: Present: dry, intact - VTE Documentation of Mechanical Device: Venous foot pump, device
[2016-08-03] MEDS: Furosemide 20 MG TABLET PO SCH (08:52)
[2016-08-03] MEDS: Aspirin Enteric Coated 81 MG Tablet PO SCH (08:52)
[2016-08-03] MEDS: Insulin LISPRO 300 UNITS/3 ML VIAL SQ SCH ×2 (08:53→12:49)
[2016-08-03] MEDS: amLODIPine 5 MG TABLET PO SCH (08:53)
[2016-08-03] MEDS ORDERED: Iron Dextran Complex 200 MG in 0.9 % Sodium Chloride 500 ML IVPB ONE (08:54)
[2016-08-03] MEDS: Saliva Stimulant 100ml BOTTLE PO SCH (08:54)
[2016-08-03] MEDS: (Rifaximin [Xifaxan] 550 MG) PO SCH (08:54)
[2016-08-03 09:40] LABS: Hematocrit 27.7 % (37.5-50.1)
[2016-08-03 09:42] LABS: Hemoglobin 8.9 g/dL (12.9-16.9)
--- NOTE | 2016-08-03 11:36 | IR Procedure Note ---
Date of procedure: 08/03/16 Consent Obtained: Written consent Timeout: Correct patient and procedure verified, Correct site verified, Time out performed, Skin prep completed Local anesthetic: Lidocaine 1% Indications: Ascites Procedure Performed: Paracentesis Site/Technique: LLQ access Results/Findings: Straw colored fluid. Still draining. Estimated blood loss (cc): 1 Complications: None; Tolerated procedure well Post Procedure Treatment Plan: Monitoring in pts room
[2016-08-03 11:55] VITALS: BP 138/67
[2016-08-03 15:16] LABS: Hematocrit 27.7 % (37.5-50.1); Hemoglobin 8.7 g/dL (12.9-16.9)
== END 2016-08-03 15:36 | disposition home health service (06) | DRG 809 ==
LOC: EMEROO 15:47 → 3ANU 20:07
PROVIDERS: ADMIT Family Medicine; ATTEND Internal Medicine

== ENCOUNTER 2018-07-28 18:29 | Inpatient (IN) ==
[2018-07-28] MEDS ORDERED: Dextrose Gel 15 GM/37.5 ML TUBE PO PRN ×2 (20:27)
[2018-07-28] MEDS ORDERED: *HR* Dextrose 50 % in Water (Syg) 50 ML SYRINGE IVP PRN (20:27)
[2018-07-28 21:24] LABS: INR 1.4
[2018-07-28 21:25] LABS: Red Cell Distribution Width 18.9 % (11.5-14.5)
[2018-07-28 21:26] LABS: Activated Partial Thrombo Time 37.4 Seconds (26.0-36.0); Albumin 3.1 g/dL (3.5-5.7); Albumin/Globulin Ratio 1.1 (1.1-2.2); Basophils % 1.8 %; Bilirubin,Direct 0.2 mg/dL (0.0-0.2); Bilirubin,Indirect 0.6 mg/dL (0.0-1.2); Bilirubin,Total 0.8 mg/dL (0.3-1.0); Calcium 8.7 mg/dL (8.6-10.3); Eosinophils # 0.1 K/mcL (0.0-0.6); Eosinophils % 7.1 %; Globulin 2.8 g/dL (2.4-3.5); Hematocrit 21.8 % (37.5-50.1); Hemoglobin 7.3 g/dL (12.9-16.9); Lymphocytes # 0.6 K/mcL (0.6-4.6); Magnesium 2.2 mg/dL (1.6-2.6); Mean Corpuscular HGB Conc 33.5 g/dL (31.6-35.5); Mean Corpuscular Hemoglobin 33.3 pg (28.0-33.3); Mean Corpuscular Volume 99.5 fL (83.0-100.0); Monocytes # 0.2 K/mcL (0.0-1.3); Monocytes % 17.7 %; Neutrophils # 0.2 K/mcL (1.6-8.9); Potassium 4.5 mEq/L (3.5-5.1); Red Blood Count 2.19 M/mcL (4.19-5.50); Segmented Neutrophils % 19.4 %; Total Protein 5.9 g/dL (6.4-8.9); White Blood Count 1.1 K/mcL (4.3-11.1)
[2018-07-28 21:37] LABS: Platelet Count 21 K/mcL (140-400)
[2018-07-28 21:49] LABS: Platelet Estimate Marked Decrease (Normal)
[2018-07-28] MEDS: Insulin LISPRO 300 UNITS/3 ML VIAL SQ SCH (22:02)
--- NOTE | 2018-07-28 22:07 | Internal Med History&Physical ---
Date of Encounter: 07/28/18 Time of Encounter: 22:06 Internal Medicine - H&P: HPI Chief complaint: weakness Admitted From: Hospital to Hospital Transfer Plans for Post Hospital Care: Home History of present illness: Oz Barnes is a 72-year-old man with liver cirrhosis which his family members status secondary to [place] resulting in esophageal varices as well as episodes of hepatic encephalopathy. He is transferred here from the [facility] after going to see his physician there with a complaint of progressive weakness over the past 1 week and family members reporting that his appetite has reduced and he has been more somnolent than normal. Lab work was done and he was admitted there but today was noted to have worsening of his cell counts which concerned him and therefore was transferred here for hematology evaluation. He denies a history of upper or lower GI bleed although in December 2017 he was seen to have grade 1 varices on endoscopy. His daughter reports occasional nosebleeds but otherwise no other bleeding issues. No fever or chills reported. No abdominal pain, nausea, vomiting or dysuria is reported. Vitals: Reviewed General: Well-developed man lying in bed in no acute distress but with notably slow speech and response times. Skin: Warm and supple. HEENT: Moist mucous membranes. (+) conjunctivae pallor. Neck: No lymphadenopathy. No JVD. No carotid bruits. No palpable thyroid. Chest: Normal thoracic expansion. Diminished breath sounds in the bases. Heart: Normal S1 & S2; rhythmic. No rubs or murmurs. Abdomen: distended but soft and non-tender to palpation. No peritoneal reaction. Extremities: No clubbing, cyanosis or edema. No calf tenderness. Normal distal pulses. Neurological: Awake, alert and oriented to person, place. No focal deficits. Psych: Affect flat. Assessment/Plan 1. 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 Currently without signs of bleeding warranting platelet/RBC transfusion. No fever or other signs/symptoms concerning for infections Will continue to monitor status and consult hematology for further recommendations. 2. Lethargy: Suspect from hepatic encephalopathy given his elevated serum ammonia and lack of bowel movements of recent. Will give lactulose 20ml q2hrs x 3 doses tonight until he achieves at least 2 diarrheal depositions. 3. CKD: Stable. Avoid nephrotoxic agents. 4. Liver disease: Will continue furosemide/spironolactone and maintenance rifaximin/lactulose once doses are confirmed. 5. Diabetes: Will place on insulin sliding scale. Past Med Surg Social Fam HX - Past Medical History Medical history: arthritis, cirrhosis, COPD, dementia, diabetes, GERD, GI bleed, hepatitis, hyperlipidemia, hypertension, liver disease, osteoporosis, peripheral artery disease, renal disease, other Additional medical history: Thrombocytopenia, esophageal varices, hepatic neuropathy, carotid artery stenosis, colon polyps, hypersplenism, hyperammonemia, gastric ulcers, sleep apnea, hypertrophy (benign) of prostate, type II diabetic Psychiatric history: anxiety, PTSD, other - Past Surgical History Surgical History: vascular surgery, other - Social History Smoking Status: Never smoker Smokeless Tobacco Status: Yes Alcohol use: none, unknown Drug use: none, unknown - Family History Mother Hx Family Cardiac Disorders: Yes ([place]) Internal Medicine - H&P: Meds Calcium Carbonate/Vitamin D3 [Calcium 250-D Tablet] 2 tab PO BID 04/18/15 [History] Lactulose 30 ml PO TID 04/18/15 [History] Allopurinol [Zyloprim 100 MG] 100 mg PO DAILY 05/26/16 [History] Rifaximin [Xifaxan] 550 mg PO BID #60 tablet 05/27/16 [Rx] Ammonium Lactate [Karla-Hydrolac] 1 appl TP BID 07/31/16 [History] Furosemide [Lasix] 20 mg PO BID 07/31/16 [History] Omeprazole [PriLOSEC] 40 mg PO DAILY #60 capsule. 08/03/16 [Rx] Fluticasone Propionate [Flovent Hfa] 12 gm NS DAILY PRN 12/22/16 [History] Levocarnitine [l-Carnitine] 750 mg PO BID 12/22/16 [History] Insulin Glargine,Hum.rec.anlog [Lantus Solostar] 44 unit SQ HS 05/20/17 [History] Insulin NPH Hum/Reg Insulin Hm [Novolin 70-30 100 Unit/ml Vial] 24 unit SQ BID 05/20/17 [History] Spironolactone [Aldactone] 25 mg PO DAILY 09/28/17 [History] Dulaglutide [Trulicity] 0.75 mg SQ QWEEK 12/23/17 [History] Allergy/AdvReac Type Severity Reaction Status Date / Time No Known Allergies Allergy Verified 04/22/18 10:04 All Systems PM: A 10-system review of systems was performed and is negative for pertinent findings except as documented above in the HPI. - Constitutional Vitals: Temp Pulse Resp BP Pulse Ox 98.3 F 61 16 148/68 99 07/28/18 20:26 07/28/18 20:26 07/28/18 20:26 07/28/18 20:26 07/28/18 20:26 Exam: . Internal Med - H&P Results - Labs CBC & Chem 7: 07/28/18 20:53 07/28/18 20:53 Labs: Short CBC 07/28/18 Range/Units 20:53 WBC 1.1 L (4.3-11.1) K/mcL Hgb 7.3 L (12.9-16.9) g/dL Hct 21.8 L (37.5-50.1) % Plt Count 21 L* (140-400) K/mcL Neutrophils # 0.2 L (1.6-8.9) K/mcL BMP 07/28/18 20:53 Sodium 141 Potassium 4.5 Chloride 110 H Carbon Dioxide 23 BUN 24 H Creatinine 1.42 H Glucose 74 Calcium 8.7 Liver Function 07/28/18 Range/Units 20:53 Total Bilirubin 0.8 (0.3-1.0) mg/dL Direct Bilirubin 0.2 (0.0-0.2) mg/dL AST 28 (13-39) Units/L ALT 22 (7-52) Units/L Alkaline Phosphatase 128 H (34-104) Units/L Albumin 3.1 L (3.5-5.7) g/dL - Time Spent With Patient Total time spent is greater than 50% in coordination of care (as documented) at patient's floor/unit and/or counseling patient: Greater than 35 minutes
[2018-07-28] MEDS: Lactulose Oral Soln 20 GM/30 ML UDC PO SCH (22:12)
[2018-07-29] MEDS: Lactulose Oral Soln 20 GM/30 ML UDC PO SCH ×5 (00:43→20:37)
[2018-07-29 03:31] LABS: Bilirubin,Urine Negative (Negative); Blood,Urine Negative (Negative); Clarity,Urine Clear (Clear); Color,Urine Yellow (Yellow); Glucose,Urine (UA) Normal (Normal); Ketones,Urine Trace mg/dL (Negative); Leukocyte Esterase,Urine Negative (Negative); Nitrite,Urine Negative (Negative); Protein,Urine Negative (Neg-Trace); Urobilinogen,Urine Normal (Normal)
[2018-07-29 04:08] LABS: Hemoglobin 7.2 g/dL (12.9-16.9)
[2018-07-29 04:09] LABS: Hematocrit 21.6 % (37.5-50.1); Mean Corpuscular HGB Conc 33.3 g/dL (31.6-35.5); Mean Corpuscular Hemoglobin 33.5 pg (28.0-33.3); Mean Corpuscular Volume 100.5 fL (83.0-100.0); Monocytes # 0.2 K/mcL (0.0-1.3); Red Blood Count 2.15 M/mcL (4.19-5.50); Red Cell Distribution Width 18.9 % (11.5-14.5)
[2018-07-29 04:26] LABS: Calcium 8.8 mg/dL (8.6-10.3); Potassium 4.4 mEq/L (3.5-5.1)
[2018-07-29 04:44] LABS: Lymphocytes # 0.6 K/mcL (0.6-4.6); White Blood Count 1.1 K/mcL (4.3-11.1)
[2018-07-29 04:46] LABS: Platelet Count 26 K/mcL (140-400)
[2018-07-29 04:55] LABS: Neutrophils # 0.4 K/mcL (1.6-8.9); Platelet Estimate Marked Decrease (Normal)
[2018-07-29 04:57] LABS: Anisocytosis 1+ (Not Present); Microcytosis Present (Not Present)
--- NOTE | 2018-07-29 07:22 | Oncology Inp Consult Note ---
<Jonelle Perry - Last Filed: 07/29/18 17:29> Date of Encounter: 07/29/18 Time of Encounter: 06:40 Assessment and Plan (1) Pancytopenia Status: Chronic Assessment and plan: Pancytopenia WBC 1.1, Hgb 7.2, Plts 26 Known history of cirrhosis. April,: WBC 2.4, Hgb 10.3, Plts 29 Patient c/o chills and possible fevers. Plan: Iron profile and ferritin added to today's labs. Blood cultures added. UA with reflex culture already ordered. Procalcitonin ordered. - Data of Consult Patient: known to practice within the last 3 years Requesting Physician: Marta Sandra Primary Care Provider: PCP [place] - Consult Narrative Reason for consult: pancytopenia History of present illness: Mr. Oz Barnes, a 72yo male with past medical history of cirrhosis, esophageal varices, and pancytopenia, [facility]. They also note chills, but no documented fevers at home. Patient last saw Dr. Smith at [facility] in April, with WBC 2.4, Hgb 10.3, and Plts [address] Smith's notes, patient's baseline plts are 30-40. He does require periodic paracentesis due to ascites, but did not require one in April,. Patient is sleeping comfortably. Family at bedside and also sleeping. Notes reviewed. Family concerned about progressive weakness x 1 week, poor po intake and somnolence. Medical history: Cirrhosis, Hepatitis, Esophageal varices, Pancytopenia, HTN, HLD, DM2, CKD, GERD, GI bleed, COPD, Dementia, Anxiety, PTSD Past Med Surg Social Fam HX - Past Medical History Medical history: arthritis, cirrhosis, COPD, dementia, diabetes, GERD, GI bleed, hepatitis, hyperlipidemia, hypertension, liver disease, osteoporosis, peripheral artery disease, renal disease, other Additional medical history: Thrombocytopenia, esophageal varices, hepatic neuropathy, carotid artery stenosis, colon polyps, hypersplenism, hyperammonemia, gastric ulcers, sleep apnea, hypertrophy (benign) of prostate, type II diabetic Psychiatric history: anxiety, PTSD, other - Past Surgical History Surgical History: vascular surgery, other - Social History Smoking Status: Never smoker Smokeless Tobacco Status: Yes Alcohol use: none, unknown Drug use: none, unknown - Family History Mother Hx Family Cardiac Disorders: Yes ([place]) Medications and Allergies Calcium Carbonate/Vitamin D3 [Calcium 250-D Tablet] 2 tab PO BID 04/18/15 [History] Lactulose 30 ml PO TID 04/18/15 [History] Allopurinol [Zyloprim 100 MG] 100 mg PO DAILY 05/26/16 [History] Rifaximin [Xifaxan] 550 mg PO BID #60 tablet 05/27/16 [Rx] Ammonium Lactate [Karla-Hydrolac] 1 appl TP BID 07/31/16 [History] Furosemide [Lasix] 20 mg PO BID 07/31/16 [History] Omeprazole [PriLOSEC] 40 mg PO DAILY #60 capsule. 08/03/16 [Rx] Fluticasone Propionate [Flovent Hfa] 12 gm NS DAILY PRN 12/22/16 [History] Levocarnitine [l-Carnitine] 750 mg PO BID 12/22/16 [History] Insulin Glargine,Hum.rec.anlog [Lantus Solostar] 48 unit SQ HS 05/20/17 [History] Insulin NPH Hum/Reg Insulin Hm [Novolin 70-30 100 Unit/ml Vial] 20 unit SQ BID 05/20/17 [History] Spironolactone [Aldactone] 25 mg PO DAILY 09/28/17 [History] Dulaglutide [Trulicity] 0.75 mg SQ QWEEK 12/23/17 [History] Allergy/AdvReac Type Severity Reaction Status Date / Time No Known Allergies Allergy Verified 04/22/18 10:04 Constitutional: Present: chills, fatigue Additional comments: poor po intake Musculoskeletal: Present: muscle weakness Integumentary: Present: swelling. Absent: rash Neurological: Present: behavioral changes, other Additional comments: slept for 3 days Psychiatric: Present: abnormal sleep pattern Endocrine: Present: fatigue Oncology - Exam - Additional findings Additional findings: General: Alert and oriented, pale, fatigued Mental Status: Affect appropriate for circumstances Skin: No rashes or petechiae. Lungs: Clear to auscultation Cardiovascular: Regular rate and rhythm. No gallops, murmurs, or rubs. Abdomen: Softly distended., nontender; Extremities: Trace BLE edema. No calf swelling or tenderness. No joint deformity. Neurologic: Alert, cranial nerves II-XII intact; no focal weakness or sensory abnormalities. Oncology Inpatient Results Labs: Laboratory Results - last 24 hr 07/28/18 07/28/18 07/28/18 20:53 20:53 20:53 WBC 1.1 L RBC 2.19 L Hgb 7.3 L Hct 21.8 L MCV 99.5 MCH 33.3 MCHC 33.5 RDW 18.9 H Plt Count 21 L* MPV TNP Immature Gran % 0.0 Seg Neutrophils % 19.4 Lymphocytes % 54.0 Monocytes % 17.7 Eosinophils % 7.1 Basophils % 1.8 Neutrophils # 0.2 L Lymphocytes # 0.6 Monocytes # 0.2 Eosinophils # 0.1 Basophils # 0.0 Platelet Estimate Marked Decrease L Anisocytosis Microcytosis PT 16.0 H INR 1.4 APTT 37.4 H Sodium 141 Potassium 4.5 Chloride 110 H Carbon Dioxide 23 BUN 24 H Creatinine 1.42 H Est GFR ( Amer) 59 L Est GFR (Non-Af Amer) 49 L BUN/Creatinine Ratio 17 Glucose 74 Calculated Osmolality 295 Calcium 8.7 Magnesium 2.2 Total Bilirubin 0.8 Direct Bilirubin 0.2 Indirect Bilirubin 0.6 AST 28 ALT 22 Alkaline Phosphatase 128 H Ammonia Serum Total Protein 5.9 L Albumin 3.1 L Globulin 2.8 Albumin/Globulin Ratio 1.1 Urine Color Urine Clarity Urine pH Ur Specific [place] Urine Protein Urine Glucose (UA) Urine Ketones Urine Blood Urine Nitrite Urine Bilirubin Urine Urobilinogen Ur Leukocyte Esterase Ur Culture Indicated? Blood Type Antibody Screen 07/28/18 07/28/18 07/29/18 20:53 20:53 03:10 WBC RBC Hgb Hct MCV MCH MCHC RDW Plt Count MPV Immature Gran % Seg Neutrophils % Lymphocytes % Monocytes % Eosinophils % Basophils % Neutrophils # Lymphocytes # Monocytes # Eosinophils # Basophils # Platelet Estimate Anisocytosis Microcytosis PT INR APTT Sodium Potassium Chloride Carbon Dioxide BUN Creatinine Est GFR ( Amer) Est GFR (Non-Af Amer) BUN/Creatinine Ratio Glucose Calculated Osmolality Calcium Magnesium Total Bilirubin Direct Bilirubin Indirect Bilirubin AST ALT Alkaline Phosphatase Ammonia 163 H Serum Total Protein Albumin Globulin Albumin/Globulin Ratio Urine Color Yellow Urine Clarity Clear Urine pH 6.0 Ur Specific [place] 1.010 Urine Protein Negative Urine Glucose (UA) Normal Urine Ketones Trace H Urine Blood Negative Urine Nitrite Negative Urine Bilirubin Negative Urine Urobilinogen Normal Ur Leukocyte Esterase Negative Ur Culture Indicated? NO Blood Type A NEGATIVE Antibody Screen NEGATIVE 07/29/18 07/29/18 07/29/18 03:48 03:48 03:48 WBC 1.1 L RBC 2.15 L Hgb 7.2 L Hct 21.6 L MCV 100.5 H MCH 33.5 H MCHC 33.3 RDW 18.9 H Plt Count 26 L* MPV TNP Immature Gran % Seg Neutrophils % 32.0 Lymphocytes % 50.0 Monocytes % 16.0 Eosinophils % Basophils % 2.0 Neutrophils # 0.4 L Lymphocytes # 0.6 Monocytes # 0.2 Eosinophils # Basophils # 0.0 Platelet Estimate Marked Decrease L Anisocytosis 1+ A Microcytosis Present A PT INR APTT Sodium 142 Potassium 4.4 Chloride 111 H Carbon Dioxide 23 BUN 25 H Creatinine 1.59 H Est GFR ( Amer) 52 L Est GFR (Non-Af Amer) 43 L BUN/Creatinine Ratio 16 Glucose 167 H Calculated Osmolality 302 H Calcium 8.8 Magnesium Total Bilirubin Direct Bilirubin Indirect Bilirubin AST ALT Alkaline Phosphatase Ammonia 146 H Serum Total Protein Albumin Globulin Albumin/Globulin Ratio Urine Color Urine Clarity Urine pH Ur Specific [place] Urine Protein Urine Glucose (UA) Urine Ketones Urine Blood Urine Nitrite Urine Bilirubin Urine Urobilinogen Ur Leukocyte Esterase Ur Culture Indicated? Blood Type Antibody Screen Consult Discharge Plan - Plan [facility]errals: [facility]Primary Care Provider[facility] - Inpatient Charges Provider: Dr. Alexandrea Antoine <Balbir Antoine - Last Filed: 07/29/18 21:53> Date of Encounter: 07/29/18 - Data of Consult Requesting Physician: Marta Sandra Primary Care Provider: [facility] - Attending Attestation I have seen and examined Mr. Barnes and agree with the assessment and plan: Placed by my nurse practitioner. Patient has a long-standing history of cirrhosis area he presented with a confusion that appears to responding nicely to lactulose. Ammonia level was elevated. is at bedside. She states his weakness and confusion have markedly improved with lactulose. His denies any melena or hematochezia. On examination, he is awake and conversant. He is oriented to person and place currently. No jaundice. Abdomen is soft. CBC reveals pancytopenia which is been chronic. However, leukopenia is more pronounced, and he has acute anemia. Iron studies appear adequate. He is without fever or chills. I have recommended obtaining blood cultures and pro- calcitonin to exclude underlying infection. Continue supportive measures. No acute intervention is required at this time. Would recommend blood transfusion for hemoglobin less than 7. No need for platelet transfusion. We will continue to follow CBC daily. Inpatient Charges Provider: Dr. Alexandrea Antoine Consult - Inpatient Medicare Only: [id number]
[2018-07-29] MEDS ORDERED: D5% in Water 1,000 ML IVC PRN (07:40)
[2018-07-29] MEDS: Insulin LISPRO 300 UNITS/3 ML VIAL SQ SCH ×4 (09:44→20:38)
--- NOTE | 2018-07-29 14:16 | Internal Med Progress Note ---
Hospitalist Progress Note - Encounter Date of Encounter: 07/29/18 Time of Encounter: 14:28 - Subjective Interval History: Spouse at bedside. States patient doing better, not as confused, though is slightly anxious. He denies CP, SOB, edema, n/v, constipation/diarrhea. - Exam Vitals: Temp Pulse Resp BP Pulse Ox 98.8 F 62 17 131/66 98 07/29/18 11:35 07/29/18 11:35 07/29/18 11:35 07/29/18 11:35 07/29/18 11:35 Exam: . 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 Currently without signs of bleeding warranting platelet/RBC transfusion. No fever or other signs/symptoms concerning for infections. Neutropenic precautions. Hematology/Oncology consulted for further recommendations. (2) Hepatic encephalopathy Current Visit: No Status: Acute Assessment and Plan: Continue lactulose and rifaxamin (3) Cirrhosis Current Visit: No Status: Acute Assessment and Plan: Continue Lactulose, rifaxamin (4) Anemia Current Visit: No Status: Acute Assessment and Plan: Currently pancytopenic, see plan above. (5) DVT prophylaxis Current Visit: No Status: Acute Assessment and Plan: SCD (6) Diabetes Current Visit: No Status: Acute Assessment and Plan: ISS (7) Hepatitis C Current Visit: No Status: Acute (8) COPD (chronic obstructive pulmonary disease) Current Visit: No Status: Chronic Assessment and Plan: No acute exacerbation. - Time Spent with Patient Total time spent is greater than 50% in coordination of care (as documented) at patient's floor/unit and/or counseling patient: Internal Medicine: Result - Labs CBC & Chem 7: 07/29/18 03:48 07/29/18 03:48 Labs: Short CBC 07/28/18 07/29/18 Range/Units 20:53 03:48 WBC 1.1 L 1.1 L (4.3-11.1) K/mcL Hgb 7.3 L 7.2 L (12.9-16.9) g/dL Hct 21.8 L 21.6 L (37.5-50.1) % Plt Count 21 L* 26 L* (140-400) K/mcL Neutrophils # 0.2 L 0.4 L (1.6-8.9) K/mcL BMP 07/28/18 07/29/18 20:53 03:48 Sodium 141 142 Potassium 4.5 4.4 Chloride 110 H 111 H Carbon Dioxide 23 23 BUN 24 H 25 H Creatinine 1.42 H 1.59 H Glucose 74 167 H Calcium 8.7 8.8 Liver Function 07/28/18 Range/Units 20:53 Total Bilirubin 0.8 (0.3-1.0) mg/dL Direct Bilirubin 0.2 (0.0-0.2) mg/dL AST 28 (13-39) Units/L ALT 22 (7-52) Units/L Alkaline Phosphatase 128 H (34-104) Units/L Albumin 3.1 L (3.5-5.7) g/dL Urine 07/29/18 Range/Units 03:10 Urine Color Yellow (Yellow) Urine Clarity Clear (Clear) Urine pH 6.0 (5.0-8.0) pH Units Ur Specific [place] 1.010 (1.010-1.025) Urine Protein Negative (Neg-Trace) mg/dL Urine Glucose (UA) Normal (Normal) mg/dL - ABG Interpretation ABG results: PT/INR, D-dimer PT 16.0 Seconds (9.4-12.1) H 07/28/18 20:53 Consult Discharge Plan - Plan [facility]errals: [facility] [Primary Care Provider] - (3) Cirrhosis Qualifiers: Hepatic cirrhosis type: unspecified hepatic cirrhosis Ascites presence: with ascites Qualified Code(s): K74.60 - Unspecified cirrhosis of liver (4) Anemia Qualifiers: Anemia type: unspecified type Qualified Code(s): D64.9 - Anemia, unspecified (6) Diabetes Qualifiers: Diabetes mellitus type: type 2 Diabetes mellitus termination clerk insulin use: with termination clerk use Diabetes mellitus complication status: with unspecified complications (7) Hepatitis C Qualifiers: Viral hepatitis chronicity: chronic Hepatic coma status: without hepatic coma Qualified Code(s): B18.2 - Chronic viral hepatitis C (8) COPD (chronic obstructive pulmonary disease) Qualifiers: COPD type: unspecified COPD Qualified Code(s): J44.9 - Chronic obstructive pulmonary disease, unspecified
[2018-07-29 18:15] LABS: % Iron Saturation 27 % (20-55); Iron 94 mcg/dL (65-175); Transferrin 245 mg/dL (203-362)
[2018-07-29 18:33] LABS: Ferritin 126 ng/mL (20-250)
[2018-07-30 02:38] LABS: Basophils % 0.9 %; Eosinophils # 0.1 K/mcL (0.0-0.6); Hematocrit 20.2 % (37.5-50.1); Hemoglobin 6.6 g/dL (12.9-16.9); Lymphocytes # 0.6 K/mcL (0.6-4.6); Lymphocytes % 56.1 %; Mean Corpuscular HGB Conc 32.7 g/dL (31.6-35.5); Mean Corpuscular Hemoglobin 33.3 pg (28.0-33.3); Mean Platelet Volume 13.1 fL (9.4-12.4); Monocytes # 0.2 K/mcL (0.0-1.3); Monocytes % 19.3 %; Neutrophils # 0.2 K/mcL (1.6-8.9); Red Blood Count 1.98 M/mcL (4.19-5.50); Red Cell Distribution Width 18.9 % (11.5-14.5); Segmented Neutrophils % 16.7 %; White Blood Count 1.1 K/mcL (4.3-11.1)
[2018-07-30 02:41] LABS: Platelet Count 24 K/mcL (140-400)
--- NOTE | 2018-07-30 02:50 | Event Note ---
Date of Encounter: 07/30/18 Time of Encounter: 02:44 Alerted by patient's nurse TORO Tobar the patient's platelets this morning resulted at 24, down from 26 yesterday. Likely r/t hx of cirrhosis. Pt. typed and screened: A negative w/negative antibody screen. No signs of bleeding. Falls/safety precautions and up with assist d/t current pancytopenia and risk for bleeding. Nurse instructed to continue monitoring this pt. very closely and alert me immediately of any adverse changes.
[2018-07-30 02:53] LABS: Calcium 8.7 mg/dL (8.6-10.3); Potassium 4.5 mEq/L (3.5-5.1)
[2018-07-30 03:07] LABS: Platelet Estimate Decreased (Normal)
[2018-07-30 03:08] LABS: Anisocytosis 1+ (Not Present)
--- NOTE | 2018-07-30 07:33 | Internal Med Progress Note ---
Hospitalist Progress Note - Encounter Date of Encounter: 07/30/18 Time of Encounter: 11:02 - Subjective Interval History: at bedside. Says patient tired because he did not sleep all night. patient denies shortness of breath but has a little fatigue, denies fevers. - Exam Vitals: Temp Pulse Resp BP Pulse Ox 98.3 F 55 17 136/71 98 07/30/18 07:00 07/30/18 07:00 07/30/18 07:00 07/30/18 07:00 07/30/18 07:00 Exam: Gen: Nad, sleeping, awakes and follows commands. Head: NC/AT ENT: MMM, no lymphadenopathy CVS: RRR Lungs: decreased breath sounds at bases, no rales, no rhonchi Abd: soft, nt/nd Ext: no edema. 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 Currently without signs of bleeding warranting platelet/RBC transfusion. No fever or other signs/symptoms concerning for infections. Neutropenic precautions. Hematology/Oncology consulted for further recommendations. H&H 6.6 today, will transfuse one unit cautiously to avoid fluid overload. Recheck AM labs. (2) Hepatic encephalopathy Current Visit: No Status: Acute Assessment and Plan: Continue lactulose and rifaxamin (3) Cirrhosis Current Visit: No Status: Acute Assessment and Plan: Continue Lactulose, Rifaxamin (4) Anemia Current Visit: No Status: Acute Assessment and Plan: Currently pancytopenic, see plan above. (5) DVT prophylaxis Current Visit: No Status: Acute Assessment and Plan: SCD (6) Diabetes Current Visit: No Status: Acute Assessment and Plan: ISS (7) Hepatitis C Current Visit: No Status: Acute (8) COPD (chronic obstructive pulmonary disease) Current Visit: No Status: Chronic Assessment and Plan: No acute exacerbation. - Time Spent with Patient Total time spent is greater than 50% in coordination of care (as documented) at patient's floor/unit and/or counseling patient: Internal Medicine: Result - Labs CBC & Chem 7: 07/30/18 01:49 07/30/18 01:49 Labs: Short CBC 07/30/18 Range/Units 01:49 WBC 1.1 L (4.3-11.1) K/mcL Hgb 6.6 L (12.9-16.9) g/dL Hct 20.2 L (37.5-50.1) % Plt Count 24 L* (140-400) K/mcL Neutrophils # 0.2 L (1.6-8.9) K/mcL BMP 07/30/18 01:49 Sodium 139 Potassium 4.5 Chloride 111 H Carbon Dioxide 21 L BUN 24 H Creatinine 1.48 H Glucose 131 H Calcium 8.7 - ABG Interpretation ABG results: PT/INR, D-dimer PT 16.0 Seconds (9.4-12.1) H 07/28/18 20:53 Consult Discharge Plan - Plan [facility]errals: [facility] [Primary Care Provider] - (3) Cirrhosis Qualifiers: Hepatic cirrhosis type: unspecified hepatic cirrhosis Ascites presence: with ascites Qualified Code(s): K74.60 - Unspecified cirrhosis of liver; R18.8 - Other ascites (4) Anemia Qualifiers: Anemia type: unspecified type Qualified Code(s): D64.9 - Anemia, unspecified (6) Diabetes Qualifiers: Diabetes mellitus type: type 2 Diabetes mellitus intermediate accountant insulin use: with intermediate accountant use Diabetes mellitus complication status: with unspecified compli cations (7) Hepatitis C Qualifiers: Viral hepatitis chronicity: chronic Hepatic coma status: without hepatic coma Qualified Code(s): B18.2 - Chronic viral hepatitis C (8) COPD (chronic obstructive pulmonary disease) Qualifiers: COPD type: unspecified COPD Qualified Code(s): J44.9 - Chronic obstructive pulmonary disease, unspecified
[2018-07-30] MEDS: Insulin LISPRO 300 UNITS/3 ML VIAL SQ SCH ×4 (08:24→22:04)
[2018-07-30] MEDS ORDERED: 0.9 % Sodium Chloride 250 ML ONE (08:55)
[2018-07-30] MEDS: Lactulose Oral Soln 20 GM/30 ML UDC PO SCH ×3 (08:59→20:06)
[2018-07-31] MEDS: Insulin LISPRO 300 UNITS/3 ML VIAL SQ SCH ×4 (07:25→21:25)
--- NOTE | 2018-07-31 08:03 | Internal Med Progress Note ---
Hospitalist Progress Note - Encounter Date of Encounter: 07/31/18 Time of Encounter: 11:01 - Subjective Interval History: No acute events. Patient tired from having trouble sleeping. - Exam Vitals: Temp Pulse Resp BP Pulse Ox 98.0 F 51 16 149/70 91 07/31/18 07:10 07/31/18 07:10 07/31/18 07:10 07/31/18 07:10 07/31/18 07:10 Exam: Gen: Nad, sleeping, awakes and follows commands. Head: NC/AT ENT: MMM, no lymphadenopathy CVS: RRR Lungs: decreased breath sounds at bases, no rales, no rhonchi Abd: soft, nt/nd Ext: no edema. 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 Currently without signs of bleeding warranting platelet/RBC transfusion. No fever or other signs/symptoms concerning for infections. Neutropenic precautions. Hematology/Oncology consulted for further recommendations. H&H 6.6 yesterday and transfused one unit PRBC today is 7.8. Recheck HH tomorrow. WBC 1.1 yesterday today decreased to 0.9 today. Oncology following. (2) Hepatic encephalopathy Current Visit: No Status: Acute Assessment and Plan: Continue lactulose and rifaxamin Mental status back to baseline. (3) Cirrhosis Current Visit: No Status: Acute Assessment and Plan: Continue Lactulose, Rifaxamin Restart Spironolactone and Lasix now that patient more sable. (4) Anemia Current Visit: No Status: Acute (5) DVT prophylaxis Current Visit: No Status: Acute (6) Diabetes Current Visit: No Status: Acute (7) Hepatitis C Current Visit: No Status: Acute (8) COPD (chronic obstructive pulmonary disease) Current Visit: No Status: Chronic - Time Spent with Patient Total time spent is greater than 50% in coordination of care (as documented) at patient's floor/unit and/or counseling patient: Internal Medicine: Result - Labs CBC & Chem 7: 07/31/18 04:00 07/31/18 04:00 - ABG Interpretation ABG results: PT/INR, D-dimer PT 16.0 Seconds (9.4-12.1) H 07/28/18 20:53 Consult Discharge Plan - Plan [facility]errals: [facility] [Primary Care Provider] - (3) Cirrhosis Qualifiers: Hepatic cirrhosis type: unspecified hepatic cirrhosis Ascites presence: with ascites Qualified Code(s): K74.60 - Unspecified cirrhosis of liver; R18.8 - Other ascites (4) Anemia Qualifiers: Anemia type: unspecified type Qualified Code(s): D64.9 - Anemia, unspecified (6) Diabetes Qualifiers: Diabetes mellitus type: type 2 Diabetes mellitus fdc insulin use: with fdc use Diabetes mellitus complication status: with unspecified complications (7) Hepatitis C Qualifiers: Viral hepatitis chronicity: chronic Hepatic coma status: without hepatic coma Qualified Code(s): B18.2 - Chronic viral hepatitis C (8) COPD (chronic obstructive pulmonary disease) Qualifiers: COPD type: unspecified COPD Qualified Code(s): J44.9 - Chronic obstructive pulmonary disease, unspecified
--- NOTE | 2018-07-31 09:23 | Oncology Inp Progress Note ---
Date of Encounter: 07/31/18 Time of Encounter: 10:30 (1) Pancytopenia Current Visit: No Status: Chronic Assessment and plan: Acute on chronic pancytopenia. 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 Leukopenia worse than previous, however. If no better by tomorrow, will plan for bone marrow biopsy and aspirate to look for other contributing factors. Maintain hgb>7 and platelet >10,000 since no evidence of active bleeding. (2) Cirrhosis Current Visit: No Status: Acute Assessment and plan: Presented with hepatic encephalopathy. This has improved with supportive measures. 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 Will infuse venofer 400 mg x 1 today. S/P 2 U PRBC yesterday. Maintain hgb >7. Qualifiers: Anemia type: unspecified type Qualified Code(s): D64.9 - Anemia, unspecified Oncology: Subj Interval history: Received 2 UPRBC overnight. Tolerated well. Feeling okay this morning. No fever or chills. Feels cold at times. Ambulating to the bathroom with minimal assist. Communicating clearly. No new c/o today. Loose stools with lactulose. Daughter at bedside. - Constitutional General appearance: average body habitus, cooperative, no acute distress - Head Head exam: Present: atraumatic, normal inspection, normocephalic - Eye Eye exam: Present: normal appearance, conjuntiva pink, sclera anicteric - ENT ENT exam: Present: mucous membranes moist, normal external ear exam, normal oropharynx - Neck Neck exam: Present: full ROM, normal inspection - Respiratory Respiratory exam: Present: CTAB - Cardiovascular Cardiovascular exam: Present: RRR - GI/Abdominal GI/Abdominal exam: Present: distended, normal bowel sounds, soft - Extremities Exam Extremities exam: Present: normal inspection - Neurological Exam Neurological exam: Present: alert, CN II-XII intact, oriented X3, no focal deficits Oncology: Obj Data - Labs CBC & Chem 7: 07/31/18 04:00 07/31/18 04:00 Consult Discharge Plan - Plan [facility]errals: [facility] [Primary Care Provider] - Inpatient Charges Provider: Dr. Alexandrea Antoine Follow up - Inpatient: [id number]
[2018-07-31] MEDS: Lactulose Oral Soln 20 GM/30 ML UDC PO SCH ×3 (09:32→21:24)
[2018-07-31 09:53] LABS: Eosinophils # 0.1 K/mcL (0.0-0.6); Eosinophils % 8.6 %; Hemoglobin 7.8 g/dL (12.9-16.9)
[2018-07-31 09:55] LABS: Basophils % 1.1 %; Hematocrit 22.7 % (37.5-50.1); Lymphocytes # 0.5 K/mcL (0.6-4.6); Lymphocytes % 50.5 %; Mean Corpuscular HGB Conc 34.4 g/dL (31.6-35.5); Mean Corpuscular Hemoglobin 34.1 pg (28.0-33.3); Mean Corpuscular Volume 99.1 fL (83.0-100.0); Mean Platelet Volume 13.3 fL (9.4-12.4); Monocytes # 0.2 K/mcL (0.0-1.3); Monocytes % 19.4 %; Neutrophils # 0.2 K/mcL (1.6-8.9); Red Blood Count 2.29 M/mcL (4.19-5.50); Red Cell Distribution Width 18.8 % (11.5-14.5); Segmented Neutrophils % 20.4 %
[2018-07-31 10:03] LABS: Platelet Count 25 K/mcL (140-400); White Blood Count 0.9 K/mcL (4.3-11.1)
[2018-07-31 10:14] LABS: BUN/Creatinine Ratio 18 (6-26); Blood Urea Nitrogen 24 mg/dL (8-23); Calcium 8.9 mg/dL (8.6-10.3); Carbon Dioxide 23 mEq/L (23-29); Chloride 110 mEq/L (98-107); Glucose 131 mg/dL (70-105); Osmolality,Calculated 294 (280-300); Platelet Estimate Marked Decrease (Normal); Potassium 4.9 mEq/L (3.5-5.1); Sodium 139 mEq/L (136-145); eGFR For African Americans > 60 (> 60); eGFR For Non-African Americans 52 (> 60)
[2018-07-31 10:15] LABS: Anisocytosis 1+ (Not Present)
[2018-07-31] MEDS ORDERED: Fluticasone Propionate Nasal 50 MCG/SPRAY BOTTLE NS PRN (10:44)
[2018-07-31] MEDS ORDERED: Gabapentin 300 MG CAPSULE PO PRN (10:44)
[2018-07-31] MEDS ORDERED: CARBOXYMETHYLCELLULOSE SODIUM BOTH EYES PRN (10:44)
[2018-07-31] MEDS ORDERED: Melatonin 3 MG TABLET PO PRN (10:44)
[2018-07-31] MEDS ORDERED: Artificial Tears SOLN 15 ML BOTTLE OP PRN (11:26)
[2018-07-31] MEDS: Zinc Sulfate 220 MG CAPSULE PO SCH ×2 (11:57→16:57)
[2018-07-31] MEDS: Spironolactone 25 MG TABLET PO SCH (11:57)
[2018-07-31] MEDS: Furosemide 20 MG TABLET PO SCH ×2 (11:57→21:24)
[2018-07-31] MEDS ORDERED: ZINC SULFATE 50 MG PO SCH (12:00)
[2018-07-31] MEDS ORDERED: Iron Sucrose Complex 400 MG in 0.9 % Sodium Chloride 250 ML IVPB ONE (14:11)
[2018-07-31] MEDS ORDERED: Furosemide 20 MG TABLET PO SCH (21:00)
[2018-07-31] MEDS: Magnesium Oxide 400 MG TABLET PO SCH (21:25)
[2018-08-01 04:32] LABS: Hemoglobin 7.5 g/dL (12.9-16.9)
[2018-08-01 04:33] LABS: Eosinophils # 0.1 K/mcL (0.0-0.6); Eosinophils % 9.8 %; Hematocrit 22.2 % (37.5-50.1); Lymphocytes # 0.6 K/mcL (0.6-4.6); Lymphocytes % 55.9 %; Mean Corpuscular HGB Conc 33.8 g/dL (31.6-35.5); Mean Corpuscular Hemoglobin 33.8 pg (28.0-33.3); Mean Platelet Volume 12.9 fL (9.4-12.4); Monocytes # 0.2 K/mcL (0.0-1.3); Monocytes % 16.7 %; Neutrophils # 0.2 K/mcL (1.6-8.9); Red Blood Count 2.22 M/mcL (4.19-5.50); Red Cell Distribution Width 18.6 % (11.5-14.5); Segmented Neutrophils % 16.6 %
[2018-08-01 04:39] LABS: Platelet Count 23 K/mcL (140-400)
[2018-08-01 04:50] LABS: Calcium 8.6 mg/dL (8.6-10.3); Potassium 4.5 mEq/L (3.5-5.1)
[2018-08-01 05:03] LABS: Platelet Estimate Marked Decrease (Normal)
--- NOTE | 2018-08-01 07:31 | Internal Med Progress Note ---
Hospitalist Progress Note - Encounter Date of Encounter: 08/01/18 Time of Encounter: 12:42 - Subjective Interval History: No acute events. patient did have difficulty sleeping because of excessive urination after restarting home meds. - Exam Vitals: Temp Pulse Resp BP Pulse Ox 98.4 F 55 16 145/73 97 08/01/18 07:14 08/01/18 07:14 08/01/18 07:14 08/01/18 07:14 08/01/18 07:14 Exam: Gen: Nad, sleeping, awakes and follows commands. Head: NC/AT ENT: MMM, no lymphadenopathy CVS: RRR Lungs: decreased breath sounds at bases, no rales, no rhonchi Abd: soft, nt/nd Ext: no edema. 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 Currently without signs of bleeding warranting platelet/RBC transfusion. No fever or other signs/symptoms concerning for infections. Neutropenic precautions. Hematology/Oncology consulted for further recommendations. WBC and H&H unchanged Will likely need bone marrow biopsy (2) Hepatic encephalopathy Current Visit: No Status: Acute Assessment and Plan: Continue lactulose and rifaxamin Mental status back to baseline. (3) Cirrhosis Current Visit: No Status: Acute Assessment and Plan: Continue Lactulose, Rifaxamin Continue Spironolactone and Lasix (4) Anemia Current Visit: No Status: Acute Assessment and Plan: Currently pancytopenic, see plan above. (5) DVT prophylaxis Current Visit: No Status: Acute Assessment and Plan: SCD (6) Diabetes Current Visit: No Status: Acute Assessment and Plan: ISS (7) Hepatitis C Current Visit: No Status: Acute (8) COPD (chronic obstructive pulmonary disease) Current Visit: No Status: Chronic Assessment and Plan: No acute exacerbation. - Time Spent with Patient Total time spent is greater than 50% in coordination of care (as documented) at patient's floor/unit and/or counseling patient: Internal Medicine: Result - Labs CBC & Chem 7: 08/01/18 03:07 08/01/18 03:07 Labs: Short CBC 07/31/18 08/01/18 Range/Units 04:00 03:07 WBC 0.9 L* 1.0 L* (4.3-11.1) K/mcL Hgb 7.8 L 7.5 L (12.9-16.9) g/dL Hct 22.7 L 22.2 L (37.5-50.1) % Plt Count 25 L* 23 L* (140-400) K/mcL Neutrophils # 0.2 L 0.2 L (1.6-8.9) K/mcL BMP 07/31/18 08/01/18 04:00 03:07 Sodium 139 139 Potassium 4.9 4.5 Chloride 110 H 109 H Carbon Dioxide 23 24 BUN 24 H 25 H Creatinine 1.34 H 1.42 H Glucose 131 H 94 Calcium 8.9 8.6 - ABG Interpretation ABG results: PT/INR, D-dimer PT 16.0 Seconds (9.4-12.1) H 07/28/18 20:53 Consult Discharge Plan - Plan Referrals: [facility] [Primary Care Provider] - (3) Cirrhosis Qualifiers: Hepatic cirrhosis type: unspecified hepatic cirrhosis Ascites presence: with ascites Qualified Code(s): K74.60 - Unspecified cirrhosis of liver; R18.8 - Other ascites (4) Anemia Qualifiers: Anemia type: unspecified type Qualified Code(s): D64.9 - Anemia, unspecified (6) Diabetes Qualifiers: Diabetes mellitus type: type 2 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
[2018-08-01] MEDS: Furosemide 20 MG TABLET PO SCH ×2 (08:14→17:23)
[2018-08-01] MEDS: Lactulose Oral Soln 20 GM/30 ML UDC PO SCH ×3 (08:14→21:47)
[2018-08-01] MEDS: Cholecalciferol (D-3) 1,000 UNIT TABLET PO SCH (08:14)
[2018-08-01] MEDS: Zinc Sulfate 220 MG CAPSULE PO SCH ×3 (08:14→17:23)
[2018-08-01] MEDS: amLODIPine 5 MG TABLET PO SCH (08:15)
[2018-08-01] MEDS: Spironolactone 25 MG TABLET PO SCH (08:15)
[2018-08-01] MEDS: Magnesium Oxide 400 MG TABLET PO SCH ×2 (08:15→21:46)
[2018-08-01] MEDS: Insulin LISPRO 300 UNITS/3 ML VIAL SQ SCH ×4 (08:15→21:37)
[2018-08-01] MEDS: Loratadine 10 MG TABLET PO SCH (08:15)
[2018-08-01] MEDS ORDERED: Spironolactone 25 MG TABLET PO SCH (09:00)
--- NOTE | 2018-08-01 11:45 | Oncology Inp Progress Note ---
<Jill Briones L - Last Filed: 08/01/18 16:21> Date of Encounter: 08/01/18 Time of Encounter: 09:00 (1) Pancytopenia Current Visit: No Status: Chronic Assessment and plan: Acute on chronic pancytopenia. 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 Leukopenia worse than prior trend, however. Plan: We will plan for bone marrow biopsy and aspirate tomorrow. NPO after MN. Maintain hgb>7 and platelet >10,000 since no evidence of active bleeding Transfuse 1 unit plt today in preparation for BMB tomorrow-patients does report dark, red blood with wiping, monitor closely for s/s bleeding, transfuse 1 unit plt now and re-check CBC and plt response around 1800 this evening Check PT/INR in AM Transfuse in AM for plt<50, INR < or equal to 1.5, to prepare for BMB (2) Anemia Current Visit: No Status: Acute Assessment and plan: Functional iron deficiency in the setting of stage III CKD. Plan: Will infuse venofer 400 mg x 1 today. S/P 2 U PRBC yesterday. Maintain hgb >7. Qualifiers: Anemia type: unspecified type Qualified Code(s): D64.9 - Anemia, unspecified (3) Cirrhosis Current Visit: No Status: Acute Assessment and plan: Presented with hepatic encephalopathy. This has improved with supportive measures, however, not yet back to baseline Plan: Further management per primary team with lactulose Qualifiers: Hepatic cirrhosis type: unspecified hepatic cirrhosis Ascites presence: with ascites Qualified Code(s): K74.60 - Unspecified cirrhosis of liver; R18.8 - Other ascites Oncology: Subj Interval history: No acute events noted overnight. Patients at bedside, reports that patients mentation has improved since admission, not yet to baseline. Patient is alert and oriented and conversant. Patients reports small amount of dark red blood with bowel movement when wiping, No blood noted in toilet. Patient denies chest pain, SOB, nausea, vomiting, diarrhea or abdominal pain. - Constitutional General appearance: cooperative, no acute distress, no febrile - Head Head exam: Present: atraumatic - Eye Eye exam: Absent: scleral icterus - ENT ENT exam: Present: mucous membranes moist, normal oropharynx - Respiratory Respiratory exam: Present: CTAB. Absent: respiratory distress - Cardiovascular Cardiovascular exam: Present: RRR - GI/Abdominal GI/Abdominal exam: Present: normal bowel sounds, soft. Absent: tenderness Additional comments: mildly distended - Extremities Exam Extremities exam: Present: normal inspection. Absent: calf tenderness - Neurological Exam Neurological exam: Present: alert, oriented X3, strengths equal and symetr throughout. Absent: no focal deficits - Psychiatric Psychiatric exam: Present: normal affect, normal mood - Skin Skin exam: Present: dry, normal color, warm Oncology: Obj Data - Labs CBC & Chem 7: 08/01/18 03:07 08/01/18 03:07 Consult Discharge Plan - Plan Referrals: [facility] [Primary Care Provider] - Inpatient Charges Provider: Dr. Alexandrea Antoine <Balbir Antoine - Last Filed: 08/01/18 20:56> Date of Encounter: 08/01/18 (1) Pancytopenia Current Visit: No Status: Chronic (2) Cirrhosis Current Visit: No Status: Acute Qualifiers: Hepatic cirrhosis type: unspecified hepatic cirrhosis Ascites presence: with ascites Qualified Code(s): K74.60 - Unspecified cirrhosis of liver; R18.8 - Other ascites (3) Anemia Current Visit: No Status: Acute Qualifiers: Anemia type: unspecified type Qualified Code(s): D64.9 - Anemia, unspecified Oncology: Obj Data - Labs CBC & Chem 7: 08/01/18 18:03 08/01/18 03:07 Inpatient Charges Provider: Dr. Alexandrea Antoine Follow up - Inpatient: [id number] - Attending Attestation I examined this patient and my medical decision-making was reviewed with the [facility] Practice Nurse. I agree with the documented findings, disposition and treatment plan as described except to the extent set forth below. Mr. Barnes is doing okay. He is eating a turkey sandwich. He is sleeping well. No acute change to his health overnight. He remains afebrile. Mentation is clear. Exam reveals a chronically ill-appearing man who is lying in bed. Abdomen is distended, soft and nontender. Minimal edema. We will arrange for bone marrow aspirate and biopsy tomorrow secondary to persistent neutropenia. Although, it is my belief that this is likely related to cirrhosis. I do want to exclude the possibility. However given his medical comorbidities and overall frail status, uncertain other therapy can be entertained if a malignant process is present. My suspicion for such is low.
[2018-08-01] MEDS ORDERED: 0.9 % Sodium Chloride 250 ML ONE (14:12)
[2018-08-01 18:53] LABS: Mean Corpuscular Hemoglobin 33.8 pg (28.0-33.3)
[2018-08-01 18:54] LABS: Basophils % 1.1 %; Eosinophils # 0.1 K/mcL (0.0-0.6); Eosinophils % 6.7 %; Hematocrit 22.9 % (37.5-50.1); Hemoglobin 7.6 g/dL (12.9-16.9); Lymphocytes # 0.5 K/mcL (0.6-4.6); Lymphocytes % 55.1 %; Mean Corpuscular HGB Conc 33.2 g/dL (31.6-35.5); Mean Corpuscular Volume 101.8 fL (83.0-100.0); Mean Platelet Volume 13.5 fL (9.4-12.4); Monocytes # 0.2 K/mcL (0.0-1.3); Monocytes % 16.9 %; Neutrophils # 0.2 K/mcL (1.6-8.9); Red Blood Count 2.25 M/mcL (4.19-5.50); Segmented Neutrophils % 20.2 %
[2018-08-01 19:28] LABS: Platelet Count 31 K/mcL (140-400)
[2018-08-01 19:31] LABS: White Blood Count 0.9 K/mcL (4.3-11.1)
[2018-08-01 19:42] LABS: Microcytosis Present (Not Present); Platelet Estimate Marked Decrease (Normal)
[2018-08-02 05:24] LABS: Hemoglobin 7.3 g/dL (12.9-16.9)
[2018-08-02 05:25] LABS: Eosinophils # 0.1 K/mcL (0.0-0.6); Eosinophils % 8.7 %; Lymphocytes # 0.6 K/mcL (0.6-4.6); Lymphocytes % 61.2 %; Mean Corpuscular HGB Conc 33.2 g/dL (31.6-35.5); Mean Corpuscular Volume 99.5 fL (83.0-100.0); Mean Platelet Volume 12.9 fL (9.4-12.4); Monocytes # 0.2 K/mcL (0.0-1.3); Monocytes % 14.6 %; Neutrophils # 0.2 K/mcL (1.6-8.9); Red Blood Count 2.21 M/mcL (4.19-5.50); Red Cell Distribution Width 18.5 % (11.5-14.5); Segmented Neutrophils % 14.5 %
[2018-08-02 05:31] LABS: INR 1.5; Prothrombin Time 16.8 Seconds (9.4-12.1)
[2018-08-02 05:40] LABS: Calcium 9.1 mg/dL (8.6-10.3); Potassium 4.5 mEq/L (3.5-5.1)
[2018-08-02 05:44] LABS: Platelet Count 27 K/mcL (140-400)
[2018-08-02 06:00] LABS: Anisocytosis 1+ (Not Present); Microcytosis Present (Not Present)
[2018-08-02 06:01] LABS: Platelet Estimate Marked Decrease (Normal); Polychromasia 1+ (Not Present)
--- NOTE | 2018-08-02 07:32 | Internal Med Progress Note ---
Hospitalist Progress Note - Encounter Date of Encounter: 08/02/18 Time of Encounter: 10:35 - Subjective Interval History: No acute events. Denies fevers/chills, n/v, abdominal swelling, spontaneous bleed. - Exam Vitals: Temp Pulse Resp BP Pulse Ox 98.2 F 55 16 144/82 99 08/02/18 07:23 08/02/18 07:23 08/02/18 07:23 08/02/18 07:23 08/02/18 07:23 Exam: Gen: Nad, awake, no issues Head: NC/AT ENT: MMM, no lymphadenopathy CVS: RRR Lungs: decreased breath sounds at bases, no rales, no rhonchi Abd: soft, nt/nd Ext: no edema. 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 Currently without signs of bleeding warranting platelet/RBC transfusion. No fever or other signs/symptoms concerning for infections. Neutropenic precautions. Hematology/Oncology consulted for further recommendations. WBC and H&H relatively unchanged Plan for bone marrow biopsy later today. (2) Hepatic encephalopathy Current Visit: No Status: Acute Assessment and Plan: Continue lactulose and rifaxamin Resolved (3) Cirrhosis Current Visit: No Status: Acute Assessment and Plan: No fluid accumulation appreciated, mental status at baseline. Continue Lactulose, Rifaxamin Continue Spironolactone and Lasix (4) Anemia Current Visit: No Status: Acute Assessment and Plan: Currently pancytopenic, see plan above. (5) Diabetes Current Visit: No Status: Acute Assessment and Plan: ISS (6) Hepatitis C Current Visit: No Status: Acute (7) COPD (chronic obstructive pulmonary disease) Current Visit: No Status: Chronic Assessment and Plan: No acute exacerbation. (8) DVT prophylaxis Current Visit: No Status: Acute Assessment and Plan: No chemical prophylaxis currently due to thrombocytopenia - Time Spent with Patient Total time spent is greater than 50% in coordination of care (as documented) at patient's floor/unit and/or counseling patient: Internal Medicine: Result - Labs CBC & Chem 7: 08/02/18 04:56 08/02/18 04:56 Labs: Short CBC 08/01/18 08/02/18 Range/Units 18:03 04:56 WBC 0.9 L* 1.0 L* (4.3-11.1) K/mcL Hgb 7.6 L 7.3 L (12.9-16.9) g/dL Hct 22.9 L 22.0 L (37.5-50.1) % Plt Count 31 L 27 L* (140-400) K/mcL Neutrophils # 0.2 L 0.2 L (1.6-8.9) K/mcL BMP 08/02/18 04:56 Sodium 142 Potassium 4.5 Chloride 107 Carbon Dioxide 26 BUN 26 H Creatinine 1.46 H Glucose 95 Calcium 9.1 - ABG Interpretation ABG results: PT/INR, D-dimer PT 16.8 Seconds (9.4-12.1) H 08/02/18 04:56 Consult Discharge Plan - Plan Referrals: [facility] [Primary Care Provider] - (3) Cirrhosis Qualifiers: Hepatic cirrhosis type: unspecified hepatic cirrhosis Ascites presence: with ascites Qualified Code(s): K74.60 - Unspecified cirrhosis of liver; R18.8 - Other ascites (4) Anemia Qualifiers: Anemia type: unspecified type Qualified Code(s): D64.9 - Anemia, unspecified (5) Diabetes Qualifiers: Diabetes mellitus type: type 2 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
[2018-08-02] MEDS: Cholecalciferol (D-3) 1,000 UNIT TABLET PO SCH (08:02)
[2018-08-02] MEDS: Loratadine 10 MG TABLET PO SCH (08:02)
[2018-08-02] MEDS: Furosemide 20 MG TABLET PO SCH ×2 (08:02→16:22)
[2018-08-02] MEDS: Magnesium Oxide 400 MG TABLET PO SCH (08:02)
[2018-08-02] MEDS: amLODIPine 5 MG TABLET PO SCH (08:02)
[2018-08-02] MEDS: Lactulose Oral Soln 20 GM/30 ML UDC PO SCH ×2 (08:03→16:22)
[2018-08-02] MEDS: Insulin LISPRO 300 UNITS/3 ML VIAL SQ SCH ×3 (08:03→16:23)
[2018-08-02] MEDS: Zinc Sulfate 220 MG CAPSULE PO SCH ×3 (08:03→16:22)
[2018-08-02] MEDS: Spironolactone 25 MG TABLET PO SCH (08:03)
--- NOTE | 2018-08-02 12:28 | Discharge Summary ---
- NOTES TO OUTPATIENT PROVIDER Notes to Outpatient Provider: Follow-up with Oncology as scheduled. Orders not resulted at time of discharge: Pending orders 07/29/18 17:32 Culture,Blood [BC] Stat 08/01/18 11:49 Surgical Pathology [PTH] Routine 08/03/18 04:00 BMP [Basic Metabolic Panel] AM 0400 Complete Blood Count [HEME] AM 0400 08/04/18 04:00 BMP [Basic Metabolic Panel] AM 0400 Complete Blood Count [HEME] AM 0400 08/05/18 04:00 BMP [Basic Metabolic Panel] AM 0400 Complete Blood Count [HEME] AM 0400 08/06/18 04:00 BMP [Basic Metabolic Panel] AM 0400 Complete Blood Count [HEME] AM 0400 08/07/18 04:00 BMP [Basic Metabolic Panel] AM 0400 Complete Blood Count [HEME] AM 0400 08/08/18 04:00 BMP [Basic Metabolic Panel] AM 0400 Complete Blood Count [HEME] AM 0400 Date of Encounter: 08/02/18 Time of Encounter: 12:25 - Discharge Diagnosis (1) Pancytopenia Priority: Primary Status: Chronic (2) Hepatic encephalopathy Priority: Secondary Status: Acute (3) Cirrhosis Priority: Secondary Status: Acute Qualifiers: Hepatic cirrhosis type: unspecified hepatic cirrhosis Ascites presence: with ascites Qualified Code(s): K74.60 - Unspecified cirrhosis of liver; R18.8 - Other ascites (4) Anemia Priority: Secondary Status: Acute Qualifiers: Anemia type: unspecified type Qualified Code(s): D64.9 - Anemia, unspecified (5) Diabetes Priority: Secondary Status: Acute Qualifiers: Diabetes mellitus type: type 2 Diabetes mellitus senior living insulin use: with extermination supervisor use Diabetes mellitus complication status: without complication Qualified Code(s): E11.9 - Type 2 diabetes mellitus without complications; Z79.4 - extermination supervisor (current) use of insulin (6) Hepatitis C Priority: Secondary Status: Acute Qualifiers: Viral hepatitis chronicity: chronic Hepatic coma status: without hepatic coma Qualified Code(s): B18.2 - Chronic viral hepatitis C (7) COPD (chronic obstructive pulmonary disease) Priority: Secondary Status: Chronic Qualifiers: COPD type: unspecified COPD Qualified Code(s): J44.9 - Chronic obstructive pulmonary disease, unspecified (8) DVT prophylaxis Priority: Secondary Status: Acute Hospital course: Oz Barnes is a 72-year-old man with liver cirrhosis which his family members status secondary to [place] in [place] resulting in esophageal varices as well as episodes of hepatic encephalopathy. [facility] is transferred [facility] [place] after going to see his physician there with a complaint of progressive weakness over the past 1 week and family members reporting that his appetite has reduced and he has been more somnolent than normal. Lab work was done and he was admitted there but today was noted to have worsening of his cell counts which concerned him and therefore was transferred here for hematology evaluation. He denies a history of upper or lower GI bleed although in December 2017 he was seen to have grade 1 varices on endoscopy. His daughter reports occasional nosebleeds but otherwise no other bleeding issues. No fever or chills reported. No abdominal pain, nausea, vomiting or dysuria is reported. He was admitted for pancytopenia and lethargy. He was started back on Lactulose and Rifaxamin which he takes at home and mental status improved. Patient hemoglobin continued to decline and required one unit of PRBC and stabilized. Oncology was consulted, who recommended transfusing PRBC and/or platelets as needed. He received IV iron. Labs were relatively unchanged with WBC running about 0.9-1.0. Patient underwent bone marrow biopsy, and per Oncology recommendations stable for discharge with follow-up in Oncology office. - Time Spent with Patient Total time spent providing and/or coordinating discharge services: - Discharge Medications Prescriptions: Continued Lactulose 29.3 mg PO TID Calcium Carbonate/Vitamin D3 [Calcium 250-D Tablet] 0.5 tab PO BID Allopurinol [Zyloprim 100 MG] 100 mg PO DAILY Rifaximin [Xifaxan] 550 mg PO BID #60 tablet Furosemide [Lasix] 20 mg PO BID Ammonium Lactate [Karla-Hydrolac] 1 appl TP BID PRN PRN Reason: Dry Skin Omeprazole [PriLOSEC] 40 mg PO DAILY #60 capsule. Levocarnitine [l-Carnitine] 750 mg PO BID Insulin NPH Hum/Reg Insulin Hm [Novolin 70-30 100 Unit/ml Vial] 20 unit SQ DAILY Insulin Glargine,Hum.rec.anlog [Lantus Solostar] 48 unit SQ HS Spironolactone [Aldactone] 25 mg PO DAILY Dulaglutide [Trulicity] 0.75 mg SQ HUERTAS amLODIPine [Norvasc] 5 mg PO DAILY Atorvastatin [Lipitor] 20 mg PO QPM Carboxymethylcellulose Sodium [Thera Tears] 1 drop BOTH EYES DAILY PRN PRN Reason: Dry Eyes Cholecalciferol (D-3) [Vitamin D] 500 units PO DAILY Fluticasone Propionate Nasal [Flonase] 1 spray NS BID PRN PRN Reason: Allergy Symptoms Gabapentin [Neurontin] 300 mg PO BID PRN PRN Reason: Pain hydrOXYzine HCl [Hydroxyzine HCl] 50 mg PO HS Loratadine [Allergy Relief] 10 mg PO DAILY Magnesium Oxide [Magnesium] 400 mg PO BID Melatonin 6 mg PO HS PRN PRN Reason: Sleep Zinc Sulfate [Zinc-15] 50 mg PO TIDWM Home Medications: Calcium Carbonate/Vitamin D3 [Calcium 250-D Tablet] 0.5 tab PO BID 04/18/15 [History] Lactulose 29.3 mg PO TID 04/18/15 [History] Allopurinol [Zyloprim 100 MG] 100 mg PO DAILY 05/26/16 [History] Rifaximin [Xifaxan] 550 mg PO BID #60 tablet 05/27/16 [Rx] Ammonium Lactate [Karla-Hydrolac] 1 appl TP BID PRN 07/31/16 [History] Furosemide [Lasix] 20 mg PO BID 07/31/16 [History] Omeprazole [PriLOSEC] 40 mg PO DAILY #60 capsule. 08/03/16 [Rx] Levocarnitine [l-Carnitine] 750 mg PO BID 12/22/16 [History] Insulin Glargine,Hum.rec.anlog [Lantus Solostar] 48 unit SQ HS 05/20/17 [History] Insulin NPH Hum/Reg Insulin Hm [Novolin 70-30 100 Unit/ml Vial] 20 unit SQ DAILY 05/20/17 [History] Spironolactone [Aldactone] 25 mg PO DAILY 09/28/17 [History] Dulaglutide [Trulicity] 0.75 mg SQ HUERTAS 12/23/17 [History] Atorvastatin [Lipitor] 20 mg PO QPM 07/30/18 [History] Carboxymethylcellulose Sodium [Thera Tears] 1 drop BOTH EYES DAILY PRN 07/30/18 [History] Cholecalciferol (D-3) [Vitamin D] 500 units PO DAILY 07/30/18 [History] Fluticasone Propionate Nasal [Flonase] 1 spray NS BID PRN 07/30/18 [History] Gabapentin [Neurontin] 300 mg PO BID PRN 07/30/18 [History] Loratadine [Allergy Relief] 10 mg PO DAILY 07/30/18 [History] Magnesium Oxide [Magnesium] 400 mg PO BID 07/30/18 [History] Melatonin 6 mg PO HS PRN 07/30/18 [History] Zinc Sulfate [Zinc-15] 50 mg PO TIDWM 07/30/18 [History] amLODIPine [Norvasc] 5 mg PO DAILY 07/30/18 [History] hydrOXYzine HCl [Hydroxyzine HCl] 50 mg PO HS 07/30/18 [History] Allergies/Adverse Reactions: Allergy/AdvReac Type Severity Reaction Status Date / Time No Known Allergies Allergy Verified 07/30/18 18:16 Date of admission: 07/29/18 18:16 [facility] physician: [facility] Consults: 07/28/18 20:47 Consult to Oncology Hematology [CONS] Routine Consulting Provider: Bakari Hardin Reason for Consult: 72 y/o M with ESLD transferred from the [place] for worsening pancytopenia Call Completed: No 08/01/18 11:49 Consult to Interventional Radiology [CONS] Routine Consulting Provider: Radiology Interventional Cols Reason for Consult: Bone marrow bx and aspiration on 08/02/2018 Call Completed: Yes Discharging clinician: Jnig Tatum - Constitutional Vitals: Temp Pulse Resp BP Pulse Ox 98.3 F 56 16 140/54 98 08/02/18 11:39 08/02/18 11:39 08/02/18 11:39 08/02/18 11:39 08/02/18 11:39 Exam: Gen: Nad, awake, no issues Head: NC/AT ENT: MMM, no lymphadenopathy CVS: RRR Lungs: decreased breath sounds at bases, no rales, no rhonchi Abd: soft, nt/nd Ext: no edema. - Patient Status Disposition: Home, Self-Care Condition: Undetermined Functional capacity at discharge: uses cane/walker Overall status at discharge: patient is not back to baseline - Discharge Instructions Follow Up With: [facility] [Primary Care Provider] - - Diet and Activity Activity: as per physical therapy Diet: diabetic diet
--- NOTE | 2018-08-02 14:23 | IR Procedure Note ---
Date of procedure: 08/02/18 Consent Obtained: Written consent Timeout: Correct patient and procedure verified, Time out performed, Skin prep completed Local anesthetic: Lidocaine 1% Was there an litigation legal assistant present: No Estimated blood loss (cc): 2 Complications: None; Tolerated procedure well Indications: Thrombocytopenia Procedure Performed: CT guided bone marow asp/biopsy Post Procedure Treatment Plan: monitor on floor Specimen: to path
[2018-08-02 16:21] VITALS: BP 131/64
== END 2018-08-02 16:59 | disposition home or self-care (01) | DRG 809 ==
LOC: 2ANU 20:17 → INTOOBSV 20:17 → SUATTDRO 07-29 18:16
PROVIDERS: ADMIT Internal Medicine Nephrology; ATTEND Student in an Organized Health Care Education/Training Program

== ENCOUNTER 2018-11-21 16:33 | Inpatient (IN) ==
[2018-11-21] MEDS ORDERED: Naloxone 0.4 MG/ML INJ IVP PRN (17:31)
[2018-11-21] MEDS ORDERED: Ondansetron 4 MG/2 ML VIAL IVP PRN (17:31)
[2018-11-21] MEDS ORDERED: *HR* Dextrose 50 % in Water (Syg) 50 ML SYRINGE IVP PRN (17:33)
[2018-11-21] MEDS ORDERED: D5% in Water 1,000 ML IVC PRN (17:33)
[2018-11-21] MEDS ORDERED: Dextrose Gel 15 GM/37.5 ML TUBE PO PRN ×2 (17:33)
[2018-11-21] MEDS ORDERED: methylPREDNISolone 125 MG/2 ML VIAL IVP ONE (18:33)
[2018-11-21 18:42] LABS: INR 1.6; Prothrombin Time 18.6 Seconds (9.4-12.1)
[2018-11-21] MEDS ORDERED: 0.9 % Sodium Chloride 250 ML ONE (20:33)
[2018-11-21] MEDS: Insulin LISPRO 300 UNITS/3 ML VIAL SQ SCH (21:46)
[2018-11-21] MEDS: Albumin 25% 25gram/100mL 25 GM/100 ML IV.SOLN IVPB SCH (22:39)
[2018-11-22] MEDS ORDERED: Pantoprazole 40 MG VIAL IVP ONE (00:48)
[2018-11-22] MEDS: Albumin 25% 25gram/100mL 25 GM/100 ML IV.SOLN IVPB SCH ×2 (05:43→14:04)
[2018-11-22 06:05] LABS: Hematocrit 20.9 % (37.5-50.1); Monocytes % 5.1 %
[2018-11-22 06:07] LABS: Hemoglobin 6.8 g/dL (12.9-16.9); Lymphocytes # 0.2 K/mcL (0.6-4.6); Lymphocytes % 46.2 %; Mean Corpuscular HGB Conc 32.5 g/dL (31.6-35.5); Mean Corpuscular Hemoglobin 35.8 pg (28.0-33.3); Mean Platelet Volume 12.4 fL (9.4-12.4); Neutrophils # 0.2 K/mcL (1.6-8.9); Red Cell Distribution Width 15.3 % (11.5-14.5); Segmented Neutrophils % 48.7 %
[2018-11-22 06:11] LABS: INR 1.8
[2018-11-22 06:15] LABS: Platelet Count 31 K/mcL (140-400); White Blood Count 0.4 K/mcL (4.3-11.1)
[2018-11-22 06:27] LABS: Albumin 3.4 g/dL (3.5-5.7); Albumin/Globulin Ratio 1.1 (1.1-2.2); Bilirubin,Total 1.2 mg/dL (0.3-1.0); Calcium 8.9 mg/dL (8.6-10.3); Globulin 3.1 g/dL (2.4-3.5); Magnesium 1.9 mg/dL (1.6-2.6); Potassium 4.7 mEq/L (3.5-5.1); Total Protein 6.5 g/dL (6.4-8.9)
[2018-11-22 06:28] LABS: Anisocytosis 1+ (Not Present); Microcytosis Present (Not Present); Platelet Estimate Decreased (Normal); Poikilocytosis 1+ (Not Present)
[2018-11-22] MEDS ORDERED: Melatonin 3 MG TABLET PO PRN (07:26)
[2018-11-22] MEDS ORDERED: Fluticasone Propionate Nasal 50 MCG/SPRAY BOTTLE NS PRN (07:26)
[2018-11-22] MEDS ORDERED: Gabapentin 300 MG CAPSULE PO PRN (07:26)
[2018-11-22] MEDS: Insulin LISPRO 300 UNITS/3 ML VIAL SQ SCH ×4 (07:43→20:24)
[2018-11-22] MEDS ORDERED: methylPREDNISolone 125 MG/2 ML VIAL IVP ONE (08:08)
[2018-11-22] MEDS ORDERED: amLODIPine 5 MG TABLET PO SCH (09:00)
[2018-11-22] MEDS ORDERED: Spironolactone 25 MG TABLET PO SCH (09:00)
[2018-11-22] MEDS ORDERED: Loratadine 10 MG TABLET PO SCH (09:00)
[2018-11-22] MEDS ORDERED: 0.9 % Sodium Chloride 500 ML ONE (09:36)
[2018-11-22] MEDS ORDERED: Aspirin 81 MG TAB.CHEW PO ONE (09:44)
[2018-11-22] MEDS: Magnesium Oxide 400 MG TABLET PO SCH ×2 (10:10→20:24)
[2018-11-22] MEDS ORDERED: Nitroglycerin 0.4 MG TAB.SUBL SL PRN (10:55)
[2018-11-22] MEDS ORDERED: Metoprolol XL (24 HR) Succ 25 MG TAB.ER.24H PO SCH (10:57)
[2018-11-22] MEDS ORDERED: Isosorbide MONOnitrate (24 HR) 30 MG TAB.ER.24H PO SCH (10:58)
[2018-11-22] MEDS ORDERED: 0.9 % Sodium Chloride 250 ML ONE ×2 (11:12→21:30)
[2018-11-22] MEDS ORDERED: Furosemide 20 MG/2 ML VIAL IVP ONE (11:40)
[2018-11-22] MEDS ORDERED: Nitroglycerin 25 MG/250 ML INFUS..BTL IVC SCH (12:00)
[2018-11-22] MEDS: Lactulose Oral Soln 20 GM/30 ML UDC PO SCH ×4 (12:53→20:23)
[2018-11-22] MEDS: Ipratropium/Albuterol Neb 3 ML IH SCH ×3 (14:12→22:15)
[2018-11-22 14:47] LABS: RBC,Peritoneal Fluid < 0.002 M/mcL
[2018-11-22 14:52] LABS: Appearance of Peritoneal Fl CLEAR (Clear)
[2018-11-22 15:05] LABS: Glucose,Peritoneal Fluid 215 mg/dL (No Ref Range); LDH,Peritoneal Fluid 53 Units/L (No Ref Range); Total Protein,Peritoneal Fluid < 3.0 g/dL
[2018-11-22] MEDS ORDERED: Albumin 25% 25gram/100mL 25 GM/100 ML IV.SOLN IVPB SCH (16:00)
[2018-11-22 17:00] LABS: Hematocrit 22.2 % (37.5-50.1); Hemoglobin 7.3 g/dL (12.9-16.9)
[2018-11-22] MEDS ORDERED: 0.9 % Sodium Chloride 500 ML IVC ONE ×2 (17:29→23:25)
[2018-11-22 17:35] LABS: Lymphocytes # 0.2 K/mcL (0.6-4.6); Mean Corpuscular HGB Conc 32.2 g/dL (31.6-35.5); Mean Corpuscular Hemoglobin 35.4 pg (28.0-33.3); Mean Corpuscular Volume 110.2 fL (83.0-100.0); Mean Platelet Volume 12.5 fL (9.4-12.4); Monocytes # 0.1 K/mcL (0.0-1.3); Monocytes % 11.6 %; Neutrophils # 0.4 K/mcL (1.6-8.9); Red Blood Count 2.06 M/mcL (4.19-5.50); Red Cell Distribution Width 16.5 % (11.5-14.5); Segmented Neutrophils % 59.4 %
[2018-11-22 17:37] LABS: Platelet Count 37 K/mcL (140-400)
[2018-11-22 17:38] LABS: White Blood Count 0.7 K/mcL (4.3-11.1)
[2018-11-22] MEDS ORDERED: *HR* Heparin 5,000 UNIT/ML VIAL SQ SCH (18:00)
[2018-11-22 18:13] LABS: Anisocytosis 1+ (Not Present); Platelet Estimate Marked Decrease (Normal)
[2018-11-22] MEDS ORDERED: Perflutren Lipid Microsphere 1.3 ML in 0.9 % Sodium Chloride 8.7 ML IVP ONE (20:20)
[2018-11-22] MEDS ORDERED: Perflutren Lipid Microsphere 2 ML VIAL ONE (20:26)
[2018-11-22] MEDS ORDERED: hydrOXYzine pamoate 25 MG CAPSULE PO SCH (21:00)
[2018-11-22 22:25] LABS: Bilirubin,Urine Negative (Negative); Blood,Urine Negative (Negative); Clarity,Urine Clear (Clear); Color,Urine Yellow (Yellow); Glucose,Urine (UA) Normal (Normal); Ketones,Urine Negative (Negative); Leukocyte Esterase,Urine Negative (Negative); Nitrite,Urine Negative (Negative); Protein,Urine Negative (Neg-Trace); Specific Gravity,Urine 1.023 (1.010-1.025); Urobilinogen,Urine Normal (Normal)
[2018-11-23 00:04] VITALS: BP 130/82
[2018-11-23] MEDS ORDERED: Piperacillin/Tazobactam 4.5 GM in 0.9 % Sodium Chloride Mini Bag 100 ML IVPB ONE (00:17)
== END 2018-11-23 00:55 | disposition critical access hospital (66) | DRG 432 ==
LOC: EMEROOARM 16:33 → SUATTDRO 19:16 → 2ANU 19:16 → ICNU 11-22 19:13
PROVIDERS: ADMIT Internal Medicine; ATTEND Internal Medicine

== ENCOUNTER 2019-03-22 16:49 | Inpatient (IN) ==
[2019-03-22 17:42] LABS: INR 1.4
[2019-03-22 17:44] LABS: Activated Partial Thrombo Time 31.6 Seconds (26.0-36.0)
[2019-03-22] MEDS ORDERED: Ondansetron ODT 4 MG TAB.RAPDIS SL PRN (19:47)
[2019-03-22 20:40] LABS: Basophils % 0.5 %
[2019-03-22 20:41] LABS: Eosinophils # 0.2 K/mcL (0.0-0.6); Hematocrit 21.5 % (37.5-50.1); Immature Platelets 5.6 % (1.1-6.1); Lymphocytes % 48.8 %; Mean Corpuscular HGB Conc 32.6 g/dL (31.6-35.5); Mean Corpuscular Hemoglobin 35.7 pg (28.0-33.3); Mean Corpuscular Volume 109.7 fL (83.0-100.0); Mean Platelet Volume 12.1 fL (9.4-12.4); Monocytes # 0.5 K/mcL (0.0-1.3); Monocytes % 26.4 %; Neutrophils # 0.3 K/mcL (1.6-8.9); Red Blood Count 1.96 M/mcL (4.19-5.50); Red Cell Distribution Width 18.7 % (11.5-14.5); Segmented Neutrophils % 16.3 %
[2019-03-22 20:43] LABS: Platelet Count 44 K/mcL (140-400)
[2019-03-22] MEDS ORDERED: 0.9 % Sodium Chloride 250 ML ONE (20:43)
[2019-03-22 20:52] LABS: Albumin 2.5 g/dL (3.5-5.7); Albumin/Globulin Ratio 0.8 (1.1-2.2); Bilirubin,Total 1.2 mg/dL (0.3-1.0); Calcium 8.6 mg/dL (8.6-10.3); Globulin 3.2 g/dL (2.4-3.5); Potassium 5.6 mEq/L (3.5-5.1); Total Protein 5.7 g/dL (6.4-8.9)
[2019-03-22 20:59] LABS: RBC,Peritoneal Fluid < 0.002 M/mcL
[2019-03-22 21:00] LABS: Appearance of Peritoneal Fl CLEAR (Clear)
[2019-03-22 21:11] LABS: Platelet Estimate Decreased (Normal); Poikilocytosis 1+ (Not Present); Polychromasia 1+ (Not Present)
[2019-03-22 21:12] LABS: Anisocytosis 1+ (Not Present)
[2019-03-22] MEDS: Albumin 25% 25gram/100mL 25 GM/100 ML IV.SOLN IVC SCH ×2 (21:16→23:46)
[2019-03-22 21:34] LABS: Basophils,Peritoneal Fluid 0 %; Eosinophils,Peritoneal Fluid 0 %
[2019-03-23] MEDS: Albumin 25% 25gram/100mL 25 GM/100 ML IV.SOLN IVC SCH ×6 (00:30→13:25)
[2019-03-23 05:04] LABS: Bilirubin,Urine Negative (Negative); Blood,Urine Large (Negative); Clarity,Urine Clear (Clear); Color,Urine Yellow (Yellow); Glucose,Urine (UA) Normal (Normal); Ketones,Urine Negative (Negative); Leukocyte Esterase,Urine Negative (Negative); Nitrite,Urine Negative (Negative); Protein,Urine Negative (Neg-Trace); Specific Gravity,Urine 1.022 (1.010-1.025); Urobilinogen,Urine Normal (Normal)
[2019-03-23 05:06] LABS: Bacteria,Urine None Seen per hpf (None-Few); Hyaline Casts,Urine Few per lpf (None-Few); RBC,Urine 15-30 per hpf (0-3); Squamous Epithelial Cell,Urine Many per lpf (None-Few); WBC,Urine 0-3 per hpf (0-3)
[2019-03-23 07:26] LABS: Basophils % 0.6 %; Eosinophils # 0.1 K/mcL (0.0-0.6); Eosinophils % 5.8 %; Hematocrit 20.8 % (37.5-50.1); Hemoglobin 6.9 g/dL (12.9-16.9); Lymphocytes # 0.8 K/mcL (0.6-4.6); Mean Corpuscular HGB Conc 33.2 g/dL (31.6-35.5); Mean Corpuscular Hemoglobin 34.5 pg (28.0-33.3); Mean Platelet Volume 12.5 fL (9.4-12.4); Monocytes # 0.5 K/mcL (0.0-1.3); Red Cell Distribution Width 21.5 % (11.5-14.5); Segmented Neutrophils % 15.6 %; White Blood Count 1.6 K/mcL (4.3-11.1)
[2019-03-23 07:43] LABS: Potassium 5.9 mEq/L (3.5-5.1)
[2019-03-23 07:53] LABS: Neutrophils # 0.3 K/mcL (1.6-8.9)
[2019-03-23 07:55] LABS: Platelet Count 30 K/mcL (140-400)
[2019-03-23 07:56] LABS: Platelet Estimate Marked Decrease (Normal)
[2019-03-23 07:57] LABS: Anisocytosis 2+ (Not Present); Poikilocytosis 1+ (Not Present)
[2019-03-23 07:58] LABS: Polychromasia 1+ (Not Present)
[2019-03-23] MEDS ORDERED: Insulin Human Regular 10 UNIT in 0.9 % Sodium Chloride 10 ML IV ONE (08:13)
[2019-03-23] MEDS ORDERED: *HR* Dextrose 50 % in Water (Syg) 50 ML SYRINGE IVP ONE (08:13)
[2019-03-23] MEDS ORDERED: Calcium Gluconate 1gm/50mL 1 GM/50 ML BAG IVPB ONE (08:14)
[2019-03-23 10:03] LABS: Creatinine,Urine 187 mg/dL; Sodium, Urine < 10.0 mEq/L
[2019-03-23] MEDS ORDERED: 0.9 % Sodium Chloride 250 ML IVC SCH (10:30)
[2019-03-23] MEDS: Lactulose Oral Soln 20 GM/30 ML UDC PO SCH ×3 (10:53→21:14)
[2019-03-23] MEDS ORDERED: SODIUM ZIRCONIUM CYCLOSILICATE 5 GM POWD.PACK PO ONE (14:37)
[2019-03-23 19:12] LABS: Hematocrit 21.9 % (37.5-50.1); Hemoglobin 7.4 g/dL (12.9-16.9)
[2019-03-23 19:13] LABS: Basophils % 0.7 %; Immature Granulocytes % 0.7 % (0-4)
[2019-03-23 19:14] LABS: Eosinophils # 0.1 K/mcL (0.0-0.6); Eosinophils % 5.9 %; Hemoglobin 7.4 g/dL (12.9-16.9); Lymphocytes % 42.5 %; Mean Corpuscular HGB Conc 33.6 g/dL (31.6-35.5); Mean Corpuscular Hemoglobin 34.7 pg (28.0-33.3); Mean Corpuscular Volume 103.3 fL (83.0-100.0); Monocytes # 0.5 K/mcL (0.0-1.3); Monocytes % 30.7 %; Neutrophils # 0.3 K/mcL (1.6-8.9); Red Blood Count 2.13 M/mcL (4.19-5.50); Red Cell Distribution Width 21.5 % (11.5-14.5); Segmented Neutrophils % 19.5 %; White Blood Count 1.5 K/mcL (4.3-11.1)
[2019-03-23 19:28] LABS: Lymphocytes # 0.6 K/mcL (0.6-4.6); Platelet Count 37 K/mcL (140-400)
[2019-03-23 19:29] LABS: Calcium 9.4 mg/dL (8.6-10.3); Potassium 5.2 mEq/L (3.5-5.1)
[2019-03-23 19:32] LABS: Albumin 4.1 g/dL (3.5-5.7); Albumin/Globulin Ratio 2.1 (1.1-2.2); Bilirubin,Direct 0.6 mg/dL (0.0-0.2); Bilirubin,Indirect 1.4 mg/dL (0.0-1.0); Total Protein 6.1 g/dL (6.4-8.9)
[2019-03-23 19:51] LABS: Anisocytosis 2+ (Not Present)
[2019-03-23 19:52] LABS: Hypochromasia Present (Not Present); Platelet Estimate Decreased (Normal); Poikilocytosis 1+ (Not Present)
[2019-03-23] MEDS ORDERED: Aspirin 325 MG TABLET PO ONE (21:01)
[2019-03-24 01:47] LABS: Protein/Creatinine Ratio,Urine 0.2 mg/mg (0.00-0.20)
[2019-03-24 03:07] LABS: Hematocrit 22.1 % (37.5-50.1); Hemoglobin 7.2 g/dL (12.9-16.9); Mean Corpuscular HGB Conc 32.6 g/dL (31.6-35.5); Mean Corpuscular Hemoglobin 34.1 pg (28.0-33.3); Mean Corpuscular Volume 104.7 fL (83.0-100.0); Mean Platelet Volume 11.1 fL (9.4-12.4); Red Blood Count 2.11 M/mcL (4.19-5.50); Red Cell Distribution Width 21.9 % (11.5-14.5); White Blood Count 1.7 K/mcL (4.3-11.1)
[2019-03-24 03:08] LABS: Platelet Count 38 K/mcL (140-400)
[2019-03-24 03:17] LABS: Albumin 3.7 g/dL (3.5-5.7); Albumin/Globulin Ratio 1.9 (1.1-2.2); Bilirubin,Total 1.9 mg/dL (0.3-1.0); Calcium 9.2 mg/dL (8.6-10.3); Potassium 4.6 mEq/L (3.5-5.1); Total Protein 5.7 g/dL (6.4-8.9)
[2019-03-24 03:18] LABS: Phosphorous 5.4 mg/dL (2.7-4.5)
[2019-03-24 03:42] LABS: Folate 7.5 ng/mL (3.0-16.0)
[2019-03-24] MEDS: Lactulose Oral Soln 20 GM/30 ML UDC PO SCH ×3 (09:19→19:48)
[2019-03-24] MEDS: Aspirin 81 MG TAB.CHEW PO SCH (09:19)
[2019-03-24] MEDS: Albumin 25% 25gram/100mL 25 GM/100 ML IV.SOLN IVPB SCH ×2 (13:42→19:49)
[2019-03-24 16:30] LABS: Basophils % 1.2 %; Eosinophils # 0.1 K/mcL (0.0-0.6); Eosinophils % 6.4 %; Immature Granulocytes % 0.6 % (0-4); Lymphocytes # 0.6 K/mcL (0.6-4.6); Lymphocytes % 35.7 %; Monocytes # 0.6 K/mcL (0.0-1.3); Monocytes % 36.8 %; Neutrophils # 0.3 K/mcL (1.6-8.9); Nucleated Red Blood Cells 1.2 /100 WBC (0); Segmented Neutrophils % 19.3 %
[2019-03-24 18:05] LABS: Platelet Estimate Decreased (Normal)
[2019-03-24 18:06] LABS: Anisocytosis 2+ (Not Present)
[2019-03-24 18:07] LABS: Macrocytosis Present (Not Present); Microcytosis Present (Not Present)
[2019-03-24 18:08] LABS: Polychromasia 1+ (Not Present)
[2019-03-24 18:09] LABS: Hypochromasia Present (Not Present); Schistocytes 1+ (Not Present)
[2019-03-25] MEDS: Albumin 25% 25gram/100mL 25 GM/100 ML IV.SOLN IVPB SCH ×3 (03:41→20:06)
[2019-03-25 04:18] LABS: Basophils % 0.9 %; Eosinophils # 0.2 K/mcL (0.0-0.6); Eosinophils % 6.8 %; Hematocrit 23.1 % (37.5-50.1); Hemoglobin 7.6 g/dL (12.9-16.9); Immature Granulocytes % 0.5 % (0-4); Immature Platelets 6.2 % (1.1-6.1); Lymphocytes # 0.8 K/mcL (0.6-4.6); Lymphocytes % 34.5 %; Mean Corpuscular HGB Conc 32.9 g/dL (31.6-35.5); Mean Corpuscular Hemoglobin 34.4 pg (28.0-33.3); Mean Corpuscular Volume 104.5 fL (83.0-100.0); Mean Platelet Volume 12.4 fL (9.4-12.4); Monocytes # 0.6 K/mcL (0.0-1.3); Monocytes % 29.1 %; Neutrophils # 0.6 K/mcL (1.6-8.9); Red Blood Count 2.21 M/mcL (4.19-5.50); Red Cell Distribution Width 22.1 % (11.5-14.5); Segmented Neutrophils % 28.2 %; White Blood Count 2.2 K/mcL (4.3-11.1)
[2019-03-25 04:22] LABS: Platelet Count 25 K/mcL (140-400)
[2019-03-25 04:39] LABS: Platelet Estimate Marked Decrease (Normal)
[2019-03-25 04:42] LABS: Albumin 3.8 g/dL (3.5-5.7); Albumin/Globulin Ratio 2.2 (1.1-2.2); Bilirubin,Total 1.9 mg/dL (0.3-1.0); Calcium 8.9 mg/dL (8.6-10.3); Globulin 1.7 g/dL (2.4-3.5); Potassium 4.7 mEq/L (3.5-5.1); Total Protein 5.5 g/dL (6.4-8.9)
[2019-03-25] MEDS: Aspirin 81 MG TAB.CHEW PO SCH (08:47)
[2019-03-25] MEDS: Lactulose Oral Soln 20 GM/30 ML UDC PO SCH ×3 (08:48→20:04)
[2019-03-25 20:06] LABS: Albumin 4.2 g/dL (3.5-5.7); Calcium 9.5 mg/dL (8.6-10.3); Phosphorous 5.2 mg/dL (2.7-4.5); Potassium 4.9 mEq/L (3.5-5.1)
[2019-03-25] MEDS ORDERED: Ondansetron 4 MG/2 ML VIAL IVP PRN (20:55)
[2019-03-25] MEDS: Melatonin 3 MG TABLET PO SCH (22:28)
[2019-03-26 00:03] LABS: Hemoglobin 8.4 g/dL (12.9-16.9)
[2019-03-26 00:05] LABS: Hematocrit 25.5 % (37.5-50.1); Immature Platelets 5.7 % (1.1-6.1); Mean Corpuscular HGB Conc 32.9 g/dL (31.6-35.5); Mean Corpuscular Hemoglobin 34.1 pg (28.0-33.3); Mean Corpuscular Volume 103.7 fL (83.0-100.0); Mean Platelet Volume 11.2 fL (9.4-12.4); Red Blood Count 2.46 M/mcL (4.19-5.50); Red Cell Distribution Width 21.8 % (11.5-14.5); White Blood Count 3.9 K/mcL (4.3-11.1)
[2019-03-26 00:26] LABS: Albumin 4.6 g/dL (3.5-5.7); Albumin/Globulin Ratio 2.2 (1.1-2.2); Bilirubin,Total 2.6 mg/dL (0.3-1.0); Calcium 9.8 mg/dL (8.6-10.3); Globulin 2.1 g/dL (2.4-3.5); Total Protein 6.7 g/dL (6.4-8.9)
[2019-03-26 00:29] LABS: ABG Base Excess -9 mEq/L (-2 to 3); ABG HCO3 17 mEq/L (21-27); ABG Oxygen Saturation 93 % (95-98); ABG PCO2 37 mmHg (35-45); ABG PH 7.28 pH Units (7.32-7.45); ABG PO2 75 mmHg (85-104); ABG TCO2 18 mEq/L (20-26)
[2019-03-26] MEDS ORDERED: Lactulose 200 GM, Sodium Chloride IRRigation 700 ML RC ONE (03:17)
[2019-03-26] MEDS: Albumin 25% 25gram/100mL 25 GM/100 ML IV.SOLN IVPB SCH (03:50)
[2019-03-26] MEDS ORDERED: Sodium Bicarbonate 50 MEQ/50 ML VIAL IVP ONE (04:00)
[2019-03-26 04:04] LABS: ABG Base Excess -7 mEq/L (-2 to 3); ABG HCO3 16 mEq/L (21-27); ABG Oxygen Saturation 93 % (95-98); ABG PCO2 24 mmHg (35-45); ABG PH 7.44 pH Units (7.32-7.45); ABG PO2 63 mmHg (85-104); ABG TCO2 17 mEq/L (20-26); Blood Gas Modality ASSIST CONTROL; Blood Gas VT 500 cc
[2019-03-26 04:27] LABS: INR 1.8; Prothrombin Time 20.1 Seconds (9.4-12.1)
[2019-03-26 04:29] LABS: Hematocrit 22.2 % (37.5-50.1); Hemoglobin 7.4 g/dL (12.9-16.9); Immature Granulocytes % 0.4 % (0-4); Immature Platelets 3.7 % (1.1-6.1); Lymphocytes # 0.4 K/mcL (0.6-4.6); Lymphocytes % 17.5 %; Mean Corpuscular HGB Conc 33.3 g/dL (31.6-35.5); Mean Corpuscular Hemoglobin 34.4 pg (28.0-33.3); Mean Corpuscular Volume 103.3 fL (83.0-100.0); Mean Platelet Volume 11.5 fL (9.4-12.4); Monocytes # 0.6 K/mcL (0.0-1.3); Monocytes % 24.1 %; Neutrophils # 1.3 K/mcL (1.6-8.9); Red Blood Count 2.15 M/mcL (4.19-5.50); Red Cell Distribution Width 21.4 % (11.5-14.5); White Blood Count 2.3 K/mcL (4.3-11.1)
[2019-03-26 04:32] LABS: Platelet Count 38 K/mcL (140-400)
[2019-03-26 04:47] LABS: Albumin 4.2 g/dL (3.5-5.7); Albumin/Globulin Ratio 2.3 (1.1-2.2); Bilirubin,Total 2.7 mg/dL (0.3-1.0); Calcium 9.5 mg/dL (8.6-10.3); Globulin 1.8 g/dL (2.4-3.5)
[2019-03-26 04:49] LABS: Platelet Estimate Marked Decrease (Normal)
[2019-03-26 04:51] LABS: Magnesium 3.1 mg/dL (1.6-2.6)
[2019-03-26] MEDS: Piperacillin/Tazobactam 3.375 GM in 0.9 % Sodium Chloride Mini Bag 100 ML IVPB SCH ×2 (05:50→18:33)
[2019-03-26] MEDS: Aspirin 81 MG TAB.CHEW PO SCH (07:44)
[2019-03-26] MEDS: FentaNYL (PF) 1,000 MCG in 0.9 % Sodium Chloride 80 ML IVC SCH (07:50)
[2019-03-26] MEDS: Lactulose Oral Soln 20 GM/30 ML UDC PO SCH ×3 (07:50→23:14)
[2019-03-26] MEDS ORDERED: Octreotide 400 MCG in 0.9 % Sodium Chloride 100 ML IVC SCH (09:00)
[2019-03-26] MEDS ORDERED: *HR* Etomidate 20 MG/10 ML AMPUL IVP ONE (09:30)
[2019-03-26] MEDS ORDERED: *HR* Midazolam HCl 5 MG/5 ML VIAL IVP ONE (09:30)
[2019-03-26] MEDS: Octreotide 400 MCG in 0.9 % Sodium Chloride 100 ML IVC SCH (10:32)
[2019-03-26] MEDS: Melatonin 3 MG TABLET PO SCH (20:14)
[2019-03-27] MEDS: Octreotide 400 MCG in 0.9 % Sodium Chloride 100 ML IVC SCH ×2 (00:15→15:43)
[2019-03-27] MEDS: FentaNYL (PF) 1,000 MCG in 0.9 % Sodium Chloride 80 ML IVC SCH (01:06)
[2019-03-27 04:25] LABS: ABG Base Excess -4 mEq/L (-2 to 3); ABG HCO3 19 mEq/L (21-27); ABG Oxygen Saturation 100 % (95-98); ABG PCO2 27 mmHg (35-45); ABG PH 7.46 pH Units (7.32-7.45); ABG PO2 236 mmHg (85-104); ABG TCO2 20 mEq/L (20-26); Blood Gas Modality AF; Blood Gas VT 500 cc
[2019-03-27 05:16] LABS: INR 1.7; Prothrombin Time 19.8 Seconds (9.4-12.1)
[2019-03-27 05:37] LABS: Calcium 9.4 mg/dL (8.6-10.3); Potassium 4.3 mEq/L (3.5-5.1)
[2019-03-27 05:39] LABS: Basophils % 0.3 %; Eosinophils # 0.1 K/mcL (0.0-0.6); Hematocrit 24.2 % (37.5-50.1); Hemoglobin 8.4 g/dL (12.9-16.9); Immature Granulocytes % 0.3 % (0-4); Immature Platelets 8.4 % (1.1-6.1); Lymphocytes # 0.7 K/mcL (0.6-4.6); Lymphocytes % 19.8 %; Mean Corpuscular HGB Conc 34.7 g/dL (31.6-35.5); Mean Corpuscular Hemoglobin 34.7 pg (28.0-33.3); Mean Platelet Volume 12.5 fL (9.4-12.4); Monocytes # 0.8 K/mcL (0.0-1.3); Monocytes % 22.8 %; Red Blood Count 2.42 M/mcL (4.19-5.50); Red Cell Distribution Width 21.6 % (11.5-14.5); Segmented Neutrophils % 53.8 %; White Blood Count 3.7 K/mcL (4.3-11.1)
[2019-03-27 05:50] LABS: Platelet Count 26 K/mcL (140-400)
[2019-03-27] MEDS: Lactulose 200 GM, Sodium Chloride IRRigation 700 ML RC SCH ×4 (06:00→23:45)
[2019-03-27] MEDS: Piperacillin/Tazobactam 3.375 GM in 0.9 % Sodium Chloride Mini Bag 100 ML IVPB SCH ×2 (06:01→17:33)
[2019-03-27 06:21] LABS: Anisocytosis 1+ (Not Present); Platelet Estimate Marked Decrease (Normal)
[2019-03-27] MEDS ORDERED: Artificial Tears SOLN 15 ML BOTTLE BOTH EYES PRN (08:37)
[2019-03-27] MEDS: Lactulose Oral Soln 20 GM/30 ML UDC PO SCH ×3 (08:53→19:46)
[2019-03-27] MEDS: Aspirin 81 MG TAB.CHEW PO SCH (08:53)
[2019-03-27] MEDS: Chlorhexidine Rinse 15 ML MOUTHWASH MM SCH ×2 (09:03→19:56)
[2019-03-27] MEDS: Artificial Tears SOLN 15 ML BOTTLE BOTH EYES SCH ×4 (11:36→23:46)
[2019-03-27] MEDS: Pantoprazole 40 MG VIAL IVP SCH (11:36)
[2019-03-27 12:58] LABS: Hepatitis B Surface Antibody < 3.10 mIU/mL
[2019-03-27 13:09] LABS: Hepatitis B Surface Antigen Nonreactive (Nonreactive)
[2019-03-27] MEDS: Melatonin 3 MG TABLET PO SCH (19:46)
[2019-03-28] MEDS ORDERED: 0.9 % Sodium Chloride 250 ML ONE (02:50)
[2019-03-28] MEDS: FentaNYL (PF) 1,000 MCG in 0.9 % Sodium Chloride 80 ML IVC SCH ×2 (03:21→23:30)
[2019-03-28] MEDS: Artificial Tears SOLN 15 ML BOTTLE BOTH EYES SCH ×6 (04:08→23:24)
[2019-03-28 04:35] LABS: ABG Base Excess -5 mEq/L (-2 to 3); ABG HCO3 19 mEq/L (21-27); ABG Oxygen Saturation 98 % (95-98); ABG PCO2 30 mmHg (35-45); ABG PH 7.42 pH Units (7.32-7.45); ABG PO2 106 mmHg (85-104); ABG TCO2 20 mEq/L (20-26); Blood Gas VT 500 cc
[2019-03-28] MEDS: Piperacillin/Tazobactam 3.375 GM in 0.9 % Sodium Chloride Mini Bag 100 ML IVPB SCH (05:35)
[2019-03-28] MEDS: Aspirin 81 MG TAB.CHEW PO SCH (07:47)
[2019-03-28] MEDS: Lactulose Oral Soln 20 GM/30 ML UDC PO SCH (07:47)
[2019-03-28] MEDS: Chlorhexidine Rinse 15 ML MOUTHWASH MM SCH ×2 (07:50→20:01)
[2019-03-28] MEDS: Pantoprazole 40 MG VIAL IVP SCH (07:50)
[2019-03-28] MEDS: Lactulose 200 GM, Sodium Chloride IRRigation 700 ML RC SCH ×2 (07:53→16:57)
[2019-03-28 07:59] LABS: Hematocrit 24.7 % (37.5-50.1); Hemoglobin 8.2 g/dL (12.9-16.9); Mean Corpuscular HGB Conc 33.2 g/dL (31.6-35.5); Mean Corpuscular Hemoglobin 33.7 pg (28.0-33.3); Mean Corpuscular Volume 101.6 fL (83.0-100.0); Mean Platelet Volume 11.1 fL (9.4-12.4); Red Blood Count 2.43 M/mcL (4.19-5.50); Red Cell Distribution Width 21.8 % (11.5-14.5); White Blood Count 3.3 K/mcL (4.3-11.1)
[2019-03-28 08:00] LABS: Platelet Count 35 K/mcL (140-400)
[2019-03-28 08:19] LABS: Calcium 9.1 mg/dL (8.6-10.3); Potassium 4.5 mEq/L (3.5-5.1)
[2019-03-28 08:20] LABS: Lymphocytes # 0.3 K/mcL (0.6-4.6); Monocytes # 0.3 K/mcL (0.0-1.3); Neutrophils # 2.6 K/mcL (1.6-8.9)
[2019-03-28 08:21] LABS: Anisocytosis 1+ (Not Present); Platelet Estimate Decreased (Normal)
[2019-03-28] MEDS: Octreotide 400 MCG in 0.9 % Sodium Chloride 100 ML IVC SCH ×2 (08:40→23:32)
[2019-03-28 09:51] LABS: Prothrombin Time 23.1 Seconds (9.4-12.1)
[2019-03-28 10:07] LABS: Albumin 3.7 g/dL (3.5-5.7); Albumin/Globulin Ratio 1.6 (1.1-2.2); Bilirubin,Direct 1.1 mg/dL (0.0-0.2); Bilirubin,Indirect 2.1 mg/dL (0.0-1.0); Bilirubin,Total 3.2 mg/dL (0.3-1.0); Globulin 2.3 g/dL (2.4-3.5)
[2019-03-29] MEDS: Artificial Tears SOLN 15 ML BOTTLE BOTH EYES SCH ×4 (03:46→13:28)
[2019-03-29] MEDS: Lactulose 200 GM, Sodium Chloride IRRigation 700 ML RC SCH ×2 (03:46→09:27)
[2019-03-29 05:01] LABS: ABG Base Excess -3 mEq/L (-2 to 3); ABG HCO3 21 mEq/L (21-27); ABG Oxygen Saturation 100 % (95-98); ABG PCO2 31 mmHg (35-45); ABG PH 7.44 pH Units (7.32-7.45); ABG PO2 158 mmHg (85-104); ABG TCO2 21 mEq/L (20-26); Blood Gas VT 500 cc
[2019-03-29 06:42] LABS: Hemoglobin 8.5 g/dL (12.9-16.9)
[2019-03-29 06:43] LABS: Basophils % 0.7 %; Eosinophils # 0.2 K/mcL (0.0-0.6); Eosinophils % 7.2 %; Hematocrit 26.7 % (37.5-50.1); Immature Granulocytes % 0.7 % (0-4); Immature Platelets 5.3 % (1.1-6.1); Lymphocytes # 0.6 K/mcL (0.6-4.6); Lymphocytes % 19.7 %; Mean Corpuscular HGB Conc 31.8 g/dL (31.6-35.5); Mean Corpuscular Hemoglobin 33.2 pg (28.0-33.3); Mean Corpuscular Volume 104.3 fL (83.0-100.0); Mean Platelet Volume 11.6 fL (9.4-12.4); Monocytes # 0.5 K/mcL (0.0-1.3); Monocytes % 17.8 %; Neutrophils # 1.6 K/mcL (1.6-8.9); Red Blood Count 2.56 M/mcL (4.19-5.50); Segmented Neutrophils % 53.9 %
[2019-03-29 06:47] LABS: INR 1.8; Platelet Count 35 K/mcL (140-400)
[2019-03-29 06:59] LABS: Albumin 3.7 g/dL (3.5-5.7); Albumin/Globulin Ratio 1.5 (1.1-2.2); Bilirubin,Direct 1.1 mg/dL (0.0-0.2); Bilirubin,Total 3.1 mg/dL (0.3-1.0); Globulin 2.5 g/dL (2.4-3.5); Total Protein 6.2 g/dL (6.4-8.9)
[2019-03-29 07:00] LABS: Calcium 9.4 mg/dL (8.6-10.3); Potassium 4.2 mEq/L (3.5-5.1)
[2019-03-29 07:10] LABS: Anisocytosis 1+ (Not Present); Platelet Estimate Decreased (Normal)
[2019-03-29] MEDS ORDERED: 0.9 % Sodium Chloride 250 ML IVC PRN (07:31)
[2019-03-29] MEDS ORDERED: 0.9 % Sodium Chloride 1,000 ML PRIME SCH (07:45)
[2019-03-29] MEDS: Pantoprazole 40 MG VIAL IVP SCH (07:59)
[2019-03-29] MEDS: Chlorhexidine Rinse 15 ML MOUTHWASH MM SCH (07:59)
[2019-03-29] MEDS ORDERED: 0.9 % Sodium Chloride 250 ML ONE (08:50)
[2019-03-29] MEDS ORDERED: *HR* Heparin 5,000 UNIT/ML VIAL ONE (10:07)
[2019-03-29] MEDS ORDERED: *HR* Heparin 10,000 UNIT/10 ML VIAL IV PRN (12:59)
[2019-03-29] MEDS: Octreotide 400 MCG in 0.9 % Sodium Chloride 100 ML IVC SCH (15:45)
[2019-03-29] MEDS: Lactulose Oral Soln 20 GM/30 ML UDC PO SCH (19:19)
[2019-03-29] MEDS: Albuterol 2.5 MG/3 ML NEBULIZER IH PRN (23:10)
[2019-03-29] MEDS: Acetylcysteine 10% 2 ML INHSOL IH SCH (23:10)
[2019-03-30] MEDS ORDERED: Melatonin 3 MG TABLET PO ONE (01:59)
[2019-03-30] MEDS: Albuterol 2.5 MG/3 ML NEBULIZER IH PRN ×6 (03:26→23:55)
[2019-03-30] MEDS: Acetylcysteine 10% 2 ML INHSOL IH SCH ×6 (03:26→23:56)
[2019-03-30 03:38] LABS: Hematocrit 23.8 % (37.5-50.1); Hemoglobin 7.6 g/dL (12.9-16.9); Immature Platelets 5.4 % (1.1-6.1); Mean Corpuscular HGB Conc 31.9 g/dL (31.6-35.5); Mean Corpuscular Hemoglobin 33.2 pg (28.0-33.3); Mean Corpuscular Volume 103.9 fL (83.0-100.0); Mean Platelet Volume 10.9 fL (9.4-12.4); Red Blood Count 2.29 M/mcL (4.19-5.50); Red Cell Distribution Width 21.2 % (11.5-14.5); White Blood Count 2.2 K/mcL (4.3-11.1)
[2019-03-30 03:40] LABS: INR 1.8; Prothrombin Time 20.1 Seconds (9.4-12.1)
[2019-03-30 03:54] LABS: Albumin 3.3 g/dL (3.5-5.7); Albumin/Globulin Ratio 1.4 (1.1-2.2); Bilirubin,Total 2.6 mg/dL (0.3-1.0); Calcium 8.8 mg/dL (8.6-10.3); Globulin 2.4 g/dL (2.4-3.5); Potassium 3.7 mEq/L (3.5-5.1); Total Protein 5.7 g/dL (6.4-8.9)
[2019-03-30] MEDS ORDERED: 0.9 % Sodium Chloride 250 ML IVC PRN ×2 (07:20→09:07)
[2019-03-30] MEDS: Lactulose Oral Soln 20 GM/30 ML UDC PO SCH ×3 (08:49→20:54)
[2019-03-30] MEDS ORDERED: 0.9 % Sodium Chloride 250 ML IVC SCH (09:07)
[2019-03-30] MEDS ORDERED: Ondansetron 4 MG/2 ML VIAL IVP PRN (09:07)
[2019-03-30] MEDS ORDERED: 0.9 % Sodium Chloride 1,000 ML PRIME SCH (09:07)
[2019-03-30] MEDS: Pantoprazole 40 MG VIAL IVP SCH (12:49)
[2019-03-31] MEDS: Albuterol 2.5 MG/3 ML NEBULIZER IH PRN ×6 (03:51→23:42)
[2019-03-31] MEDS: Acetylcysteine 10% 2 ML INHSOL IH SCH ×6 (03:51→23:42)
[2019-03-31 03:55] LABS: Basophils % 0.9 %; Hemoglobin 7.6 g/dL (12.9-16.9); Mean Platelet Volume 11.6 fL (9.4-12.4)
[2019-03-31 03:57] LABS: Eosinophils # 0.2 K/mcL (0.0-0.6); Eosinophils % 10.2 %; Hematocrit 23.8 % (37.5-50.1); Lymphocytes # 0.6 K/mcL (0.6-4.6); Lymphocytes % 25.6 %; Mean Corpuscular HGB Conc 31.9 g/dL (31.6-35.5); Mean Corpuscular Hemoglobin 33.9 pg (28.0-33.3); Mean Corpuscular Volume 106.3 fL (83.0-100.0); Monocytes # 0.5 K/mcL (0.0-1.3); Monocytes % 23.3 %; Neutrophils # 0.9 K/mcL (1.6-8.9); Red Blood Count 2.24 M/mcL (4.19-5.50); Red Cell Distribution Width 20.9 % (11.5-14.5); White Blood Count 2.2 K/mcL (4.3-11.1)
[2019-03-31 04:03] LABS: Platelet Count 27 K/mcL (140-400)
[2019-03-31 04:22] LABS: Albumin 3.3 g/dL (3.5-5.7); Calcium 8.5 mg/dL (8.6-10.3); Magnesium 2.2 mg/dL (1.6-2.6); Phosphorous 3.3 mg/dL (2.7-4.5); Potassium 3.7 mEq/L (3.5-5.1)
[2019-03-31 04:23] LABS: Platelet Estimate Marked Decrease (Normal)
[2019-03-31] MEDS: Lactulose Oral Soln 20 GM/30 ML UDC PO SCH ×3 (10:39→21:44)
[2019-03-31] MEDS: Pantoprazole 40 MG VIAL IVP SCH (10:39)
[2019-03-31] MEDS: Insulin LISPRO 300 UNITS/3 ML VIAL SQ SCH ×2 (17:35→21:45)
[2019-03-31] MEDS: Melatonin 3 MG TABLET PO PRN (21:46)
[2019-04-01 02:59] LABS: Hemoglobin 8.3 g/dL (12.9-16.9)
[2019-04-01 03:01] LABS: Basophils % 0.7 %; Eosinophils # 0.3 K/mcL (0.0-0.6); Eosinophils % 9.7 %; Immature Granulocytes % 0.3 % (0-4); Immature Platelets 9.4 % (1.1-6.1); Lymphocytes # 0.8 K/mcL (0.6-4.6); Lymphocytes % 25.4 %; Mean Corpuscular HGB Conc 31.9 g/dL (31.6-35.5); Mean Corpuscular Hemoglobin 32.9 pg (28.0-33.3); Mean Corpuscular Volume 103.2 fL (83.0-100.0); Mean Platelet Volume 11.7 fL (9.4-12.4); Monocytes # 0.7 K/mcL (0.0-1.3); Monocytes % 22.7 %; Neutrophils # 1.2 K/mcL (1.6-8.9); Red Blood Count 2.52 M/mcL (4.19-5.50); Red Cell Distribution Width 20.3 % (11.5-14.5); Segmented Neutrophils % 41.2 %
[2019-04-01 03:14] LABS: Calcium 8.6 mg/dL (8.6-10.3); Potassium 3.8 mEq/L (3.5-5.1)
[2019-04-01 03:19] LABS: Platelet Count 29 K/mcL (140-400)
[2019-04-01] MEDS: Albuterol 2.5 MG/3 ML NEBULIZER IH PRN ×6 (03:26→23:42)
[2019-04-01] MEDS: Acetylcysteine 10% 2 ML INHSOL IH SCH ×6 (03:26→23:42)
[2019-04-01 03:35] LABS: Anisocytosis 2+ (Not Present); Macrocytosis Present (Not Present); Platelet Estimate Marked Decrease (Normal)
[2019-04-01] MEDS: Insulin LISPRO 300 UNITS/3 ML VIAL SQ SCH ×4 (08:31→20:55)
[2019-04-01] MEDS: Lactulose Oral Soln 20 GM/30 ML UDC PO SCH ×3 (09:33→21:48)
[2019-04-01] MEDS: Pantoprazole 40 MG VIAL IVP SCH (09:33)
[2019-04-01] MEDS: Vitamin B Complex/Vit C/Vit E 1 EACH TABLET PO SCH (16:13)
[2019-04-01] MEDS ORDERED: Lidocaine Jelly 6ml 1 APPL/6 ML JEL.PF.APP TP ONE (17:40)
[2019-04-01] MEDS ORDERED: Artificial Tears SOLN 15 ML BOTTLE BOTH EYES PRN (17:44)
[2019-04-02] MEDS: Acetylcysteine 10% 2 ML INHSOL IH SCH ×6 (03:58→23:13)
[2019-04-02] MEDS: Albuterol 2.5 MG/3 ML NEBULIZER IH PRN ×5 (03:58→19:49)
[2019-04-02 03:59] LABS: Basophils % 1.3 %; Eosinophils # 0.2 K/mcL (0.0-0.6); Eosinophils % 8.6 %; Hematocrit 24.8 % (37.5-50.1); Hemoglobin 7.9 g/dL (12.9-16.9); Immature Granulocytes % 0.4 % (0-4); Lymphocytes # 0.6 K/mcL (0.6-4.6); Lymphocytes % 26.3 %; Mean Corpuscular HGB Conc 31.9 g/dL (31.6-35.5); Mean Corpuscular Hemoglobin 33.8 pg (28.0-33.3); Mean Platelet Volume 12.4 fL (9.4-12.4); Monocytes # 0.6 K/mcL (0.0-1.3); Monocytes % 24.6 %; Neutrophils # 0.9 K/mcL (1.6-8.9); Red Blood Count 2.34 M/mcL (4.19-5.50); Red Cell Distribution Width 20.5 % (11.5-14.5); Segmented Neutrophils % 38.8 %; White Blood Count 2.3 K/mcL (4.3-11.1)
[2019-04-02 04:02] LABS: Platelet Count 24 K/mcL (140-400)
[2019-04-02 04:14] LABS: Calcium 8.3 mg/dL (8.6-10.3); Potassium 3.8 mEq/L (3.5-5.1)
[2019-04-02] MEDS: Insulin LISPRO 300 UNITS/3 ML VIAL SQ SCH ×4 (07:42→22:02)
[2019-04-02] MEDS: Vitamin B Complex/Vit C/Vit E 1 EACH TABLET PO SCH (10:32)
[2019-04-02] MEDS: Lactulose Oral Soln 20 GM/30 ML UDC PO SCH ×3 (10:32→22:05)
[2019-04-02] MEDS: Pantoprazole 40 MG VIAL IVP SCH (10:32)
[2019-04-03] MEDS: Acetylcysteine 10% 2 ML INHSOL IH SCH ×5 (03:21→19:36)
[2019-04-03 05:27] LABS: Immature Granulocytes % 0.4 % (0-4); Red Cell Distribution Width 20.8 % (11.5-14.5)
[2019-04-03 05:29] LABS: Basophils % 0.4 %; Eosinophils # 0.2 K/mcL (0.0-0.6); Eosinophils % 8.6 %; Hematocrit 24.1 % (37.5-50.1); Hemoglobin 7.7 g/dL (12.9-16.9); Immature Platelets 7.2 % (1.1-6.1); Lymphocytes # 0.6 K/mcL (0.6-4.6); Lymphocytes % 23.8 %; Mean Corpuscular Hemoglobin 33.9 pg (28.0-33.3); Mean Corpuscular Volume 106.2 fL (83.0-100.0); Mean Platelet Volume 11.6 fL (9.4-12.4); Monocytes # 0.6 K/mcL (0.0-1.3); Red Blood Count 2.27 M/mcL (4.19-5.50); Segmented Neutrophils % 41.8 %; White Blood Count 2.4 K/mcL (4.3-11.1)
[2019-04-03 05:52] LABS: Platelet Count 28 K/mcL (140-400)
[2019-04-03 06:11] LABS: Calcium 8.2 mg/dL (8.6-10.3)
[2019-04-03 06:54] LABS: Platelet Estimate Marked Decrease (Normal)
[2019-04-03] MEDS: Albuterol 2.5 MG/3 ML NEBULIZER IH PRN ×4 (07:12→19:36)
[2019-04-03] MEDS: Vitamin B Complex/Vit C/Vit E 1 EACH TABLET PO SCH (09:02)
[2019-04-03] MEDS: Lactulose Oral Soln 20 GM/30 ML UDC PO SCH ×3 (09:02→22:49)
[2019-04-03] MEDS: Pantoprazole 40 MG VIAL IVP SCH (09:02)
[2019-04-03] MEDS: Insulin LISPRO 300 UNITS/3 ML VIAL SQ SCH ×4 (09:05→22:48)
[2019-04-04] MEDS: Acetylcysteine 10% 2 ML INHSOL IH SCH ×7 (00:16→23:32)
[2019-04-04 06:05] LABS: Basophils % 0.8 %; Hemoglobin 7.7 g/dL (12.9-16.9); Immature Granulocytes % 0.4 % (0-4)
[2019-04-04 06:07] LABS: Eosinophils # 0.2 K/mcL (0.0-0.6); Eosinophils % 8.1 %; Hematocrit 24.2 % (37.5-50.1); Mean Corpuscular HGB Conc 31.8 g/dL (31.6-35.5); Mean Corpuscular Hemoglobin 33.6 pg (28.0-33.3); Mean Corpuscular Volume 105.7 fL (83.0-100.0); Monocytes # 0.6 K/mcL (0.0-1.3); Monocytes % 24.8 %; Neutrophils # 1.1 K/mcL (1.6-8.9); Red Blood Count 2.29 M/mcL (4.19-5.50); Segmented Neutrophils % 43.9 %; White Blood Count 2.5 K/mcL (4.3-11.1)
[2019-04-04 06:21] LABS: Calcium 8.3 mg/dL (8.6-10.3); Potassium 3.9 mEq/L (3.5-5.1)
[2019-04-04 06:22] LABS: Lymphocytes # 0.6 K/mcL (0.6-4.6)
[2019-04-04 06:23] LABS: Platelet Count 29 K/mcL (140-400)
[2019-04-04 06:59] LABS: Anisocytosis 1+ (Not Present); Microcytosis Present (Not Present); Platelet Estimate Marked Decrease (Normal)
[2019-04-04] MEDS: Albuterol 2.5 MG/3 ML NEBULIZER IH PRN ×5 (07:21→23:32)
[2019-04-04] MEDS: Lactulose Oral Soln 20 GM/30 ML UDC PO SCH ×3 (09:31→20:21)
[2019-04-04] MEDS: Vitamin B Complex/Vit C/Vit E 1 EACH TABLET PO SCH (09:31)
[2019-04-04] MEDS: Pantoprazole 40 MG VIAL IVP SCH (09:31)
[2019-04-04] MEDS: Insulin LISPRO 300 UNITS/3 ML VIAL SQ SCH ×4 (09:40→21:09)
[2019-04-04] MEDS: Melatonin 3 MG TABLET PO PRN (20:21)
[2019-04-05] MEDS ORDERED: 0.9 % Sodium Chloride 250 ML ONE ×3 (03:19→05:32)
[2019-04-05 07:50] LABS: Hemoglobin 7.6 g/dL (12.9-16.9); Mean Corpuscular Volume 105.3 fL (83.0-100.0)
[2019-04-05 08:00] LABS: Basophils % 0.4 %; Eosinophils # 0.2 K/mcL (0.0-0.6); Eosinophils % 5.6 %; Hematocrit 23.9 % (37.5-50.1); Immature Granulocytes % 0.7 % (0-4); Immature Platelets 5.7 % (1.1-6.1); Lymphocytes % 20.2 %; Mean Corpuscular HGB Conc 31.8 g/dL (31.6-35.5); Mean Corpuscular Hemoglobin 33.5 pg (28.0-33.3); Mean Platelet Volume 11.4 fL (9.4-12.4); Monocytes # 0.6 K/mcL (0.0-1.3); Monocytes % 22.1 %; Neutrophils # 1.4 K/mcL (1.6-8.9); Red Blood Count 2.27 M/mcL (4.19-5.50); Red Cell Distribution Width 21.1 % (11.5-14.5); White Blood Count 2.7 K/mcL (4.3-11.1)
[2019-04-05 08:06] LABS: Calcium 8.8 mg/dL (8.6-10.3); Potassium 3.6 mEq/L (3.5-5.1)
[2019-04-05 08:18] LABS: Lymphocytes # 0.6 K/mcL (0.6-4.6); Platelet Count 56 K/mcL (140-400)
[2019-04-05] MEDS: Insulin LISPRO 300 UNITS/3 ML VIAL SQ SCH ×4 (08:46→22:00)
[2019-04-05] MEDS: Vitamin B Complex/Vit C/Vit E 1 EACH TABLET PO SCH (08:46)
[2019-04-05] MEDS: Lactulose Oral Soln 20 GM/30 ML UDC PO SCH ×3 (08:46→21:40)
[2019-04-05 09:12] LABS: Anisocytosis 1+ (Not Present); Macrocytosis Present (Not Present); Platelet Estimate Decreased (Normal)
[2019-04-05] MEDS ORDERED: Lidocaine Jelly 6ml 1 APPL/6 ML JEL.PF.APP TP ONE (13:09)
[2019-04-05] MEDS ORDERED: Lidocaine Jelly 11 ml Syringe TP PRN (13:22)
[2019-04-05 19:19] LABS: Appearance of Body Fluid Clear (Clear); Volume of Body Fluid 60 mL
[2019-04-05] MEDS: Melatonin 3 MG TABLET PO PRN (22:00)
[2019-04-06 04:38] LABS: Mean Corpuscular Volume 104.7 fL (83.0-100.0)
[2019-04-06 04:40] LABS: Hematocrit 24.6 % (37.5-50.1); Hemoglobin 7.8 g/dL (12.9-16.9); Immature Platelets 6.2 % (1.1-6.1); Mean Corpuscular HGB Conc 31.7 g/dL (31.6-35.5); Mean Corpuscular Hemoglobin 33.2 pg (28.0-33.3); Mean Platelet Volume 12.2 fL (9.4-12.4); Red Blood Count 2.35 M/mcL (4.19-5.50); Red Cell Distribution Width 20.8 % (11.5-14.5); White Blood Count 2.7 K/mcL (4.3-11.1)
[2019-04-06 05:02] LABS: Calcium 8.4 mg/dL (8.6-10.3); Potassium 3.6 mEq/L (3.5-5.1)
[2019-04-06] MEDS: Vitamin B Complex/Vit C/Vit E 1 EACH TABLET PO SCH (10:15)
[2019-04-06] MEDS: Lactulose Oral Soln 20 GM/30 ML UDC PO SCH ×3 (10:15→21:37)
[2019-04-06] MEDS: Insulin LISPRO 300 UNITS/3 ML VIAL SQ SCH ×4 (10:16→21:33)
[2019-04-06] MEDS: Melatonin 3 MG TABLET PO PRN (21:37)
[2019-04-06] MEDS: Albuterol 2.5 MG/3 ML NEBULIZER IH PRN (21:45)
[2019-04-07] MEDS ORDERED: Aminoglycoside Consult 1 EACH MC ONE (00:08)
[2019-04-07 06:00] LABS: Hematocrit 25.3 % (37.5-50.1); Immature Platelets 8.4 % (1.1-6.1); Mean Corpuscular HGB Conc 31.6 g/dL (31.6-35.5); Mean Corpuscular Hemoglobin 33.2 pg (28.0-33.3); Mean Platelet Volume 12.8 fL (9.4-12.4); Red Blood Count 2.41 M/mcL (4.19-5.50); Red Cell Distribution Width 20.3 % (11.5-14.5); White Blood Count 3.1 K/mcL (4.3-11.1)
[2019-04-07 06:19] LABS: Calcium 8.3 mg/dL (8.6-10.3); Potassium 3.3 mEq/L (3.5-5.1)
[2019-04-07 10:01] LABS: Albumin 2.9 g/dL (3.5-5.7); Albumin/Globulin Ratio 1.1 (1.1-2.2); Bilirubin,Direct 0.5 mg/dL (0.0-0.2); Bilirubin,Indirect 1.1 mg/dL (0.0-1.0); Bilirubin,Total 1.6 mg/dL (0.3-1.0); Globulin 2.6 g/dL (2.4-3.5); Total Protein 5.5 g/dL (6.4-8.9)
[2019-04-07] MEDS: Vitamin B Complex/Vit C/Vit E 1 EACH TABLET PO SCH (11:21)
[2019-04-07] MEDS: Lactulose Oral Soln 20 GM/30 ML UDC PO SCH ×3 (11:23→20:22)
[2019-04-07] MEDS: Insulin LISPRO 300 UNITS/3 ML VIAL SQ SCH ×4 (11:29→20:16)
[2019-04-07] MEDS: Piperacillin/Tazobactam 3.375 GM in 0.9 % Sodium Chloride Mini Bag 100 ML IVPB SCH ×2 (13:00→20:22)
[2019-04-07 19:33] VITALS: BP 135/65
[2019-04-07] MEDS: Melatonin 3 MG TABLET PO PRN (20:28)
[2019-04-08 05:35] LABS: Fluid Source for Albumin ASCITES
== END 2019-04-08 00:09 | DRG 432 ==
LOC: EMEROOARM 16:49 → 2NNU 16:49 → 3ANU 03-24 04:11 → SUATTDRO 03-24 13:16 → 3ANU 03-25 17:55 → ICNU 03-26 00:55 → 2ANU 03-30 15:37
PROVIDERS: ADMIT Pharmacist; ATTEND Family Medicine